=== PATIENT | female | born 1945 | race Caucasian/White ===

== ENCOUNTER → 2017-06-14 11:40 | Outpatient (CLI) | payer MEDICARE, OTHER, SELFPAY ==
[2017-06-14 12:50] LABS: AST(SGOT) 27 U/L (15-37); Alanine Aminotransfer ALT/SGPT 36 U/L (13-56); Albumin, Serum 3.6 g/dL (3.2-5.0); Alkaline Phosphatase 80 U/L (45-117); Bilirubin, Direct 0.15 mg/dL (0.00-0.30); Cholesterol 201 mg/dL (200); Globulin 3.8 g/dL (2.2-4.2); High Density Lipoprotein 73 mg/dL; Protein, Total 7.4 g/dL (6.4-8.2); Triglycerides 202 mg/dL; Very Low Density Lipoprotein 40 mg/dL (5-40)
[2017-06-14 13:04] LABS: International Normalized Ratio 2.6; Prothrombin Time (Protime)PT. 27.2 SECONDS (11.7-14.9)
== END ==
PROVIDERS: Family Provider Family Medicine; PCP Family Medicine; Visit Provider Internal Medicine Cardiovascular Disease
DX: E78.5 Hyperlipidemia, unspecified (principal); Z79.899 Other long term (current) drug therapy; Z95.2 Presence of prosthetic heart valve
CPT/HCPCS: 36415; 80061; 80076; 85610

== ENCOUNTER → 2017-07-06 12:23 | Outpatient (CLI) | payer MEDICARE, OTHER, SELFPAY ==
[2017-07-06 13:29] LABS: International Normalized Ratio 2.7; Prothrombin Time (Protime)PT. 27.9 SECONDS (11.7-14.9)
== END ==
PROVIDERS: Family Provider Family Medicine; PCP Family Medicine; Visit Provider Internal Medicine Cardiovascular Disease
DX: Z95.2 Presence of prosthetic heart valve (principal)
CPT/HCPCS: 36415; 85610

== ENCOUNTER → 2017-08-02 10:47 | Outpatient (CLI) | payer MEDICARE, OTHER, SELFPAY ==
[2017-08-02 12:32] LABS: International Normalized Ratio 3.2; Prothrombin Time (Protime)PT. 32.7 SECONDS (11.7-14.9)
== END ==
PROVIDERS: Family Provider Family Medicine; PCP Family Medicine; Visit Provider Internal Medicine Cardiovascular Disease
DX: Z98.890 Other specified postprocedural states (principal); Z95.2 Presence of prosthetic heart valve; Z79.01 Long term (current) use of anticoagulants
CPT/HCPCS: 36415; 85610

== ENCOUNTER → 2017-08-25 12:19 | Outpatient (CLI) | payer MEDICARE, OTHER, SELFPAY ==
[2017-08-25 14:02] LABS: International Normalized Ratio 2.9; Prothrombin Time (Protime)PT. 30.4 SECONDS (11.7-14.9)
== END ==
PROVIDERS: Family Provider Family Medicine; PCP Family Medicine; Visit Provider Internal Medicine Cardiovascular Disease
DX: Z98.890 Other specified postprocedural states (principal); Z95.2 Presence of prosthetic heart valve; Z79.01 Long term (current) use of anticoagulants
CPT/HCPCS: 36415; 85610

== ENCOUNTER → 2017-09-20 11:41 | Outpatient (CLI) | payer MEDICARE, OTHER, SELFPAY ==
[2017-09-20 12:58] LABS: International Normalized Ratio 3.1; Prothrombin Time (Protime)PT. 32.3 SECONDS (11.7-14.9)
== END ==
PROVIDERS: Family Provider Family Medicine; PCP Family Medicine; Visit Provider Internal Medicine Cardiovascular Disease
DX: Z95.2 Presence of prosthetic heart valve (principal); Z98.890 Other specified postprocedural states; Z79.01 Long term (current) use of anticoagulants
CPT/HCPCS: 36415; 85610

== ENCOUNTER → 2017-10-21 10:58 | Outpatient (CLI) | payer MEDICARE, OTHER, SELFPAY ==
--- NOTE | 2017-10-21 10:58 | DT_ITS ---
This patient was seen during an EMR downtime October 18, 2017 - October 25, 2017. This patient may have a combination of paper and electronic documentation or all paper documentation. All documentation is viewable within the e-chart portion of [employer] for each patient visit.
[2017-10-26 04:30] LABS: International Normalized Ratio 3.1
== END ==
PROVIDERS: Family Provider Family Medicine; PCP Family Medicine; Visit Provider Internal Medicine Cardiovascular Disease
DX: Z98.890 Other specified postprocedural states (principal); Z79.01 Long term (current) use of anticoagulants; Z95.2 Presence of prosthetic heart valve
CPT/HCPCS: 36415; 85610

== ENCOUNTER → 2017-11-10 11:03 | Outpatient (CLI) | payer MEDICARE, OTHER, SELFPAY ==
[2017-11-10 13:29] LABS: International Normalized Ratio 3.1; Prothrombin Time (Protime)PT. 32.5 SECONDS (11.7-14.9)
== END ==
PROVIDERS: Visit Provider Internal Medicine Cardiovascular Disease
DX: Z98.890 Other specified postprocedural states (principal); Z95.2 Presence of prosthetic heart valve; Z79.01 Long term (current) use of anticoagulants
CPT/HCPCS: 36415; 85610

== ENCOUNTER → 2017-12-07 10:03 | Outpatient (CLI) | payer MEDICARE, OTHER, SELFPAY ==
[2017-12-07 12:48] LABS: International Normalized Ratio 3.2; Prothrombin Time (Protime)PT. 32.7 SECONDS (11.7-14.9)
== END ==
PROVIDERS: Family Provider Family Medicine; PCP Family Medicine; Visit Provider Internal Medicine Cardiovascular Disease
DX: Z98.890 Other specified postprocedural states (principal); Z95.2 Presence of prosthetic heart valve; Z79.01 Long term (current) use of anticoagulants
CPT/HCPCS: 36415; 85610

== ENCOUNTER → 2017-12-30 10:28 | Outpatient (CLI) | payer MEDICARE, OTHER, SELFPAY ==
[2017-12-30 12:43] LABS: Prothrombin Time (Protime)PT. 31.7 SECONDS (11.7-14.9)
[2017-12-30 13:09] LABS: AST(SGOT) 36 U/L (15-37); Alanine Aminotransfer ALT/SGPT 34 U/L (13-56); Albumin, Serum 3.6 g/dL (3.2-5.0); Alkaline Phosphatase 74 U/L (45-117); Bilirubin, Direct 0.16 mg/dL (0.00-0.30); Cholesterol 186 mg/dL (200); Globulin 3.8 g/dL (2.2-4.2); High Density Lipoprotein 64 mg/dL; Protein, Total 7.4 g/dL (6.4-8.2); Triglycerides 184 mg/dL; Very Low Density Lipoprotein 37 mg/dL (5-40)
== END ==
PROVIDERS: Family Provider Family Medicine; PCP Family Medicine; Visit Provider Internal Medicine Cardiovascular Disease
DX: E78.5 Hyperlipidemia, unspecified (principal); Z98.890 Other specified postprocedural states; Z95.2 Presence of prosthetic heart valve; Z79.01 Long term (current) use of anticoagulants
CPT/HCPCS: 80061; 80076; 85610

== ENCOUNTER → 2018-01-26 11:31 | Outpatient (CLI) | payer MEDICARE, OTHER, SELFPAY ==
[2018-01-26 12:50] LABS: International Normalized Ratio 3.4; Prothrombin Time (Protime)PT. 34.6 SECONDS (11.7-14.9)
== END ==
PROVIDERS: Family Provider Family Medicine; PCP Family Medicine; Visit Provider Internal Medicine Cardiovascular Disease
DX: Z98.890 Other specified postprocedural states (principal); Z95.2 Presence of prosthetic heart valve; Z79.01 Long term (current) use of anticoagulants
CPT/HCPCS: 36415; 85610

== ENCOUNTER → 2018-02-18 09:51 | Outpatient (CLI) | payer MEDICARE, OTHER, SELFPAY ==
[2018-02-18 12:33] LABS: International Normalized Ratio 3.2; Prothrombin Time (Protime)PT. 32.7 SECONDS (11.7-14.9)
== END ==
PROVIDERS: Family Provider Family Medicine; PCP Family Medicine; Visit Provider Internal Medicine Cardiovascular Disease
DX: Z95.2 Presence of prosthetic heart valve (principal); Z98.890 Other specified postprocedural states; Z79.01 Long term (current) use of anticoagulants
CPT/HCPCS: 36415; 85610

== ENCOUNTER → 2018-03-16 11:42 | Outpatient (CLI) | payer MEDICARE, OTHER, SELFPAY ==
[2018-03-16 12:41] LABS: International Normalized Ratio 3.3; Prothrombin Time (Protime)PT. 33.7 SECONDS (11.7-14.9)
== END ==
PROVIDERS: Family Provider Family Medicine; PCP Family Medicine; Visit Provider Internal Medicine Cardiovascular Disease
DX: Z95.2 Presence of prosthetic heart valve (principal); Z98.890 Other specified postprocedural states; Z79.01 Long term (current) use of anticoagulants
CPT/HCPCS: 36415; 85610

== ENCOUNTER → 2018-04-13 11:28 | Outpatient (CLI) | payer MEDICARE, OTHER, SELFPAY ==
[2018-04-13 13:00] LABS: International Normalized Ratio 2.9; Prothrombin Time (Protime)PT. 30.6 SECONDS (11.7-14.9)
--- OUTSIDE RECORDS SUMMARY | 2018-06-08 20:26 | XMS RPT_ITS ---
:1945 Author Organization OHIP Support Name Relationship Address Phone BAILEY, AMINA Unavailable . + [place] [address] R Unavailable Unavailable Unavailable BAILEY, AMINA Unavailable . + [place] [address] R Unavailable Unavailable Unavailable BAILEY, AMIAN Unavailable . + [place] [address] R Unavailable Unavailable Unavailable BAILEY, AMINA Unavailable . + [place] [address] R Unavailable Unavailable Unavailable MAY, MARS Unavailable [address] + [place] [address] MAY, MARS Unavailable [address] + [place] [address] BAILEY, AMINA Unavailable . + [place] [address] R Unavailable Unavailable Unavailable BAILEY, AMINA Unavailable . + [place] [address] R Unavailable Unavailable Unavailable BAILEY, AMINA Unavailable . + [place] [address] R Unavailable Unavailable Unavailable BAILEY, AMINA Unavailable . + [place] [address] R Unavailable Unavailable Unavailable BAILEY, AMINA Unavailable . + [place] [address] R Unavailable Unavailable Unavailable BAILEY, AMINA Unavailable . + [place] [address] R Unavailable Unavailable Unavailable MAY, MARS Unavailable [address] + [place] [address] MAY, MARS Unavailable [address] + [place] [address] BAILEY, AMINA Unavailable . + [place] [address] R Unavailable Unavailable Unavailable BAILEY, AMINA Unavailable . + [place] [address] R Unavailable Unavailable Unavailable BAILEY, AMINA Unavailable . + [place] [address] R Unavailable Unavailable Unavailable R Unavailable Unavailable Unavailable BAILEY, AMINA Unavailable . + [facility] [place] Unavailable Unavailable Unavailable MAY, NACHO Unavailable [address] [place] [address] BAILEY, AMINA Unavailable . + [place], [place] R Unavailable Unavailable Unavailable MAY, NACHO Unavailable [address] [place] [address] BAILEY, AMINA Unavailable . + [place], [place] R Unavailable Unavailable Unavailable MAY, NACHO Unavailable [address] [place] [address] Care Team Providers Name Role Phone JOELLE OLGUIN MD Attending Unavailable JOELLE OLGUIN MD Primary Care Unavailable [facility] [place] NICOL Monroy Attending Unavailable JOELLE OLGUIN MD Primary Care Unavailable Luke, [place] Attending Unavailable Isidro, Joelle Primary Care Unavailable Luke, [place] Attending Unavailable Isidro, Joelle [facility] Un[facility] Joelle Olguin Referring Unavailable Isidro, Joelle Primary Care Unavailable DeFinis, Harumi Attending Unavailable Luke, Rodrigo Attending Unavailable Isidro, Joelle Primary Care Unavailable Luke, Rodrigo Attending Unavailable Isidro, Joelle Primary Care Unavailable Luke, Rodrigo Attending Unavailable Isidro, Joelle Primary Care Unavailable Luke, [place] Attending Unavailable Isidro, Joelle Primary Care Unavailable Luke, Rodrigo Attending Unavailable Isidro, Joelle Primary Care Unavailable Luke, Rodrigo Attending Unavailable Luke, [place] Attending Unavailable Isidro, Joelle Primary Care Unavailable Luke, Rodrigo Attending Unavailable Isidro, Joelle Primary Care Unavailable Luke, [place] Attending Unavailable Isidro, Joelle Primary Care Unavailable Luke, Rodrigo Attending Unavailable Isidro, Joelle Primary Care Unavailable Luke, Rodrigo Attending Unavailable Isidro, Joelle Primary Care Unavailable Luke, [place] Attending Unavailable Isidro, Joelle Primary Care Unavailable PROBLEMS PROBLEMS DATE TYPE CONDITION / CODE ATTENDING STATUS SOURCE 01/26/2018 Unknown 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, [place]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 [place] (current) use of Community anticoagulants / Hospital Z79.01(ICD-10) Repository 11/10/2017 Unknown Z95.2 - Presence of Luke, Rodrig[place] Active [facility] prosthetic heart Community valve / Hospital Z95.2(ICD-10) Repository 11/10/2017 Unknown Z98.890 - Other Luke, [place] Active [place] specified Community postprocedural Hospital states / Repository Z98.890(ICD-10) 06/14/2017 Unknown E78.5 - Luke, Rodrigo Active [facility] Hyperlipidemia, Community unspecified / Hospital E78.5(ICD-10) Repository 06/14/2017 Unknown Z79.899 - Other long Luke, [place] Active [place] term (current) drug Community therapy / Hospital Z79.899(ICD-10) Repository PROCEDURES PROCEDURES No Procedure Records FoundRESULTS RESULTS PROTHROMBIN TIME W/INR Collected: 04/13/2018 Status: F Source: [place] 11:30 AM [facility] REPOSITORY TYPE CODE TESTS RESULT OUT OF RANGE REFERENCE UNITS LAB L300.4150 11.7-14.9 SECONDS High PROTIME 30.6 LAB L300.4200 Normal INR 2.9 Performed By: #### L300.3900 #### [facility] [address] [place], [place], [id number] PROTHROMBIN TIME W/INR Collected: 03/16/2018 Status: F Source: [place] 11:45 AM [facility] REPOSITORY TYPE CODE TESTS RESULT OUT OF RANGE REFERENCE UNITS LAB L300.4150 11.7-14.9 SECONDS High PROTIME 33.7 LAB L300.4200 Normal INR 3.3 Performed By: #### L300.3900 #### [facility] [address] [place], [place], [address] PROTHROMBIN TIME W/INR Collected: 02/18/2018 Status: F Source: [place] 9:54 AM [facility] REPOSITORY TYPE CODE TESTS RESULT OUT OF RANGE REFERENCE UNITS LAB L300.4150 11.7-14.9 SECONDS High PROTIME 32.7 LAB L300.4200 Normal INR 3.2 Performed By: #### L300.3900 #### [facility] [address] [place], [address] PROTHROMBIN TIME W/INR Collected: 01/26/2018 Status: F Source: [place] 10:00 AM [facility] REPOSITORY TYPE CODE TESTS RESULT OUT OF RANGE REFERENCE UNITS LAB L300.4150 11.7-14.9 SECONDS High PROTIME 34.6 LAB L300.4200 Normal INR 3.4 Performed By: #### L300.3900 #### [facility] [address] [place], [address] MA MAMMOGRAM SCREENING Observed: 01/10/2018 Status: F Source: [facility]IL[facility] W/KAYLYNN 11:30 AM FOUNDATION REPOSITORY ORIGINAL FROM: [place] [address] PROCEDURE FOR: WILMA MAY [address] [place] [address] Home: PID#: [id number] Exam#: [id number] : 1945 Age: 72 TO: NICOL FERNANDEZ ALLIGATOR TRAPPER-C [address] [place] [address] #[id number] DIGITAL SCREENING MAMMOGRAM 3D/2D WITH CAD WITH MEDIOLATERAL OBLIQUE CRANIOCAUDAL: 01/10/2018 Comparison is made to exams dated: 08/20/2017 ultrasound, 11/30/2016 mammogram, and 11/29/2015 mammogram - [facility]. The tissue of both breasts is predominately fatty. Current study was also evaluated with a Computer Aided Detection (CAD) system. There are benign calcifications in both breasts. There also is a benign density in the right breast. No significant masses, calcifications, or other findings are seen in either breast. There has been no significant interval change. IMPRESSION: BENIGN There is no mammographic evidence of malignancy. A 1 year screening mammogram is recommended. JELLY SHELTON MD ab/penrad:01/10/2018 17:03:00 Time Recorder: LUANN HEDRICK (R)(M), [facility] letter sent: Normal BI-RADS 1&2 Mammogram BI-RADS: 2 Benign PROTHROMBIN TIME W/INR Collected: 12/30/2017 Status: F Source: [place] 10:31 AM [facility] REPOSITORY TYPE CODE TESTS RESULT OUT OF RANGE REFERENCE UNITS LAB L300.4150 11.7-14.9 SECONDS High PROTIME 31.7 LAB L300.4200 Normal INR 3.0 Performed By: #### L300.3900 #### [facility] [address] [facility]. [place], [place], [id number] LIVER PROFILE Collected: 12/30/2017 Status: F Source: [place] 10:31 AM [facility] REPOSITORY TYPE CODE TESTS RESULT OUT OF RANGE REFERENCE UNITS LAB L501.1500 6.4-8.2 g/dL Normal T PROT 7.4 LAB L501.1800 3.2-5.0 g/dL Normal ALB 3.6 LAB L501.1950 2.2-4.2 g/dL Normal GLOB 3.8 LAB L501.4100 15-37 U/L Normal AST 36 Result Comment: Slight Hemolysis, Result may be falsely increased. LAB L501.4305 45-117 U/L Normal ALK P 74 LAB L501.4405 13-56 U/L Normal ALT 34 LAB L501.4600 0.20-1.00 mg/dL Normal T BILI 1.00 LAB L501.4700 0.00-0.30 mg/dL Normal D BILI 0.16 Performed By: #### L500.3400, L500.4100 #### [facility] [address] [place], [place], [id number] LIPID PROFILE Collected: 12/30/2017 Status: F Source: [place] 10:31 AM [facility] REPOSITORY TYPE CODE TESTS RESULT OUT OF RANGE REFERENCE UNITS LAB L501.4900 200 mg/dL Normal CHOL 186 Result Comment: <200 mg/dL Desirable 200-240 mg/dL Borderline >240 mg/dL High Risk LAB L501.5000 mg/dL Normal TRIG 184 Result Comment: The drugs N-Acetylcysteine and Metamizole may falsely depress this assay. Serum Triglycerides Reference Interval Normal <150 mg/dL Borderline high 150 - 199 mg/dL High 200 - 499 mg/dL Very High > or = 500 mg/dL LAB L501.6400 mg/dL Normal HDL 64 Result Comment: The drugs N-Acetylcysteine and Metamizole may falsely depress this assay. Reference Range HDL <40 mg/dL Low HDL Cholesterol HDL >or= 60 mg/dL High HDL Cholesterol LAB L501.6500 0-130 mg/dL Normal LDL 85 LAB L501.6600 5-40 mg/dL Normal VLDL 37 Performed By: #### L500.3400, L500.4100 #### [facility] [address] [facility] [place], [address] PROTHROMBIN TIME W/INR Collected: 12/07/2017 Status: F Source: [place] 10:12 AM [facility] REPOSITORY TYPE CODE TESTS RESULT OUT OF RANGE REFERENCE UNITS LAB L300.4150 11.7-14.9 SECONDS High PROTIME 32.7 LAB L300.4200 Normal INR 3.2 Performed By: #### L300.3900 #### [facility] [address] [facility] [place], [address] PROTHROMBIN TIME W/INR Collected: 11/10/2017 Status: F Source: [place] 11:04 AM [facility] REPOSITORY TYPE CODE TESTS RESULT OUT OF RANGE REFERENCE UNITS LAB L300.4150 11.7-14.9 SECONDS High PROTIME 32.5 LAB L300.4200 Normal INR 3.1 Performed By: #### L300.3900 #### [facility] [address] [place], [address] DOWNTIME REPORT Observed: 11/04/2017 Status: F Source: [place] 1:12 PM [facility] REPOSITORY [facility] Medical Records Department [address] [place] [address] Downtime Report MR#: [id number] Acct: [id number] Name: WILMA MAY Rep #: [id number] : 1945 71 From: Singh Dawson PCP: Joelle Olguin MD Status: REG CLI This patient was seen during an EMR downtime October 18, 2017 - October 25, 2017. This patient may have a combination of paper and electronic documentation or all paper documentation. All documentation is viewable within the e-chart portion of [facility] for each patient visit. PROTHROMBIN TIME W/INR Collected: 10/21/2017 Status: F Source: [place] 9:40 AM [facility] REPOSITORY Order Comment: RESULT(S) PREVIOUSLY REPORTED ON MANUAL REQUISITION DURING DOWNTIME. TYPE CODE TESTS RESULT OUT OF RANGE REFERENCE UNITS LAB L300.4150 11.7-14.9 SECONDS High PROTIME 32.0 LAB L300.4200 Normal INR 3.1 Performed By: #### L300.3900 #### [facility] [address] [place], [address] PROTHROMBIN TIME W/INR Collected: 09/20/2017 Status: F Source: [place] 11:49 AM [facility] REPOSITORY TYPE CODE TESTS RESULT OUT OF RANGE REFERENCE UNITS LAB L300.4150 11.7-14.9 SECONDS High PROTIME 32.3 LAB L300.4200 Normal INR 3.1 Performed By: #### L300.3900 #### [facility] [address] [place], [address] PROTHROMBIN TIME W/INR Collected: 08/25/2017 Status: F Source: [place] 12:20 PM [facility] REPOSITORY TYPE CODE TESTS RESULT OUT OF RANGE REFERENCE UNITS LAB L300.4150 11.7-14.9 SECONDS High PROTIME 30.4 LAB L300.4200 Normal INR 2.9 Performed By: #### L300.3900 #### [facility] [address] [facility] [place], [address] US BREAST RIGHT Observed: 08/20/2017 Status: F Source: [facility] 1:00 PM FOUNDATION REPOSITORY ORIGINAL FROM: [address] [address] PROCEDURE FOR: WILMA MAY [address] [place] [address] Home: PID#: [id number] Exam#: [id number] : 1945 Age: 71 TO: JOELLE OLGUIN MD [address] [place], [place] [address] #[id number] ULTRASOUND OF RIGHT BREAST: 08/20/2017 CLINICAL: 6 MONTHS FOLLOW-UP. Comparison is made to exams dated: 02/17/2017 ultrasound, 12/01/2016 ultrasound, and 11/30/2016 mammogram - [facility]. Color flow and real-time ultrasound of the right breast were performed. There is a stable benign appearing 8 mm oval lesion in the right breast at 7 o'clock middle depth. This oval lesion is anechoic centrally and has an echogenic margin. Color flow imaging demonstrates jovan t there is no vascularity present. There has been no significant interval change. IMPRESSION: BENIGN There is no sonographic evidence of malignancy. The stable 8 mm oval lesion in the right breast most likely is fat necrosis and appears benign. Return to annual mammogram screening schedule is recommended, due November 2017. JACINTO LOBO M.D. vfg/:08/20/2017 13:49:46 Time Recorder: CARMELITA LAND RT(R), [facility] letter sent: Normal BI-RADS 1&2 Ultrasound BI-RADS: 2 Benign PROTHROMBIN TIME W/INR Collected: 08/02/2017 Status: F Source: [place] 10:50 AM [facility] REPOSITORY Order Comment: Comments: STANDING ORDER Comments: STANDING ORDER TYPE CODE TESTS RESULT OUT OF RANGE REFERENCE UNITS LAB L300.4150 11.7-14.9 SECONDS High PROTIME 32.7 LAB L300.4200 Normal INR 3.2 Performed By: #### L300.3900 #### [facility] [address] [place], [place], [address] CARDIOLOGY VISIT Observed: 07/07/2017 Status: F Source: [place] REPORT 11:35 AM [facility] REPOSITORY [facility] [address] [place] [address] OFFICE VISIT Date of Service: 07/06/17 MR#: [id number] Acct: [id number] Name: WILMA MAY Rep #: [id number] : 1945 Provider: MARY ANNE Ramos Age/Sex: 71/F [facility] Status: Signed HPI HPI Details: WILMA MAY, is a 71 F who presents to the office today for a cardiovascular outpatient follow-up. Patient is a history of bicuspid aortic valve status post aortic valve replacement [address] Ahmet's valve and hyperlipidemia. Pt. denies chest, arm, jaw, or neck discomfort. Her exercise tolerance is stable. Pt. denies symptoms of CHF, palpitations, lightheadedness, dizziness, near syncope, or syncopal episodes. Pt. denies edema or claudication issues. Pt. denies orthopnea, PND, fever, chills, blood in urine, blood in stool, myalgia, or unexplainable fatigue. She is hoping to return to exercise classes. Intake Vital Signs07/06/17 Height 5 ft 4 in 07/06/17 Weight: 212 lb 07/06/17 Body Mass Index (BMI) 36.3 07/06/17 Blood Pressure 90/50 Intake Visit Reasons: 1 Y FU Allergies Sulfa (Sulfonamide Antibiotics) Allergy (Verified 07/06/17 09:39) Itching ezetimibe [From Zetia] Adverse Reaction (Severe, Verified 07/06/17 09:39) Muscle aches iodine Adverse Reaction (Severe, Uncoded 07/06/17 09:39) Vomiting lipitor Adverse Reaction (Severe, Uncoded 07/06/17 09:39) Muscle aches zocor Adverse Reaction (Severe, Uncoded 07/06/17 09:39) Muscle aches Medications Aspirin E.C. [Ecotrin] 81 mg PO DAILY@0800 08/24/14 [History Confirmed 06/30/17] amoxicillin 500 mg tablet See Label Instructions PO .COMPLEX 06/30/17 [History Confirmed 06/30/17] imipramine 25 mg tablet See Label Instructions PO QHS 06/30/17 [History Confirmed 06/30/17] metoprolol tartrate 25 mg tablet 25 mg PO BID #180 tab 07/06/17 [Rx Confirmed 07/06/17] rosuvastatin 40 mg tablet 40 mg PO .COMPLEX #90 tab 07/06/17 [Rx Confirmed 07/06/17] warfarin 1 mg tablet 1 mg PO .COMPLEX #90 tab 07/06/17 [Rx Confirmed 07/06/17] warfarin 4 mg tablet 4 mg PO .COMPLEX #90 tab 07/06/17 [Rx Confirmed 07/06/17] PFSH Medical History halfway current use of anticoagulant (Acute) Palpitations (Acute) TIA (transient ischemic attack) (Acute) Aortic stenosis (Chronic) Cardiac dysrhythmia (Chronic) Hypercholesterolemia (Chronic) Hyperlipidemia (Chronic) Surgical History History of mechanical aortic valve replacement (Resolved) Family History Mother CVA (cerebral vascular accident) Social History Smoking Status: Never smoker seatbelt use: always ROS Const Const: Negative for fatigue, weakness, body ache, fever(s), headache(s), chills, frequent falls, night sweats, daytime sleepiness, difficulty sleeping, excessive sweating, weight gain, weight loss, increased appetite, poor appetite, anorexia or other ENT ENT: Negative for headache(s) Cardio Chest Pain: No Palpitations: Positive for No; negative for Yes Edema: None Muscle aches with walking: None Resp Respiratory: Positive for SOB with activity (ocassionally when going upstairs or walking, this is brief and minimal); negative for SOB at rest, SOB orthopnea\SOB lying down, Coughing up blood/hemoptysis, chest congestion, pain on inspiration, snoring, stridor, wheezing, crackles, paroxysmal nocturnal dyspnea or other Neuro Neuro: Negative for weakness, Negative for headache(s), Negative for frequent falls Endo Endo: Negative for fatigue or excessive sweating Cardiology Exam Const Appearance: cooperative, healthy appearing, comfortable and no acute distress Orientation: alert, awake and oriented x3 Head Head: normal to inspection Mouth: oral mucosae normal Neck Neck: no JVD and normal visual inspection Carotids: normal carotid upstroke Chest Chest inspection: normal inspection of the chest and normal respiratory effort Auscultation: Bilateral: Clear to Auscultation Cardio Rate: regular rate Rhythm: regular rhythm Heart sounds: S2 normal and murmur (crisp prosthetic valve, LLSB systolic); negative rub or gallop Murmur: Grade 1/6 GI GI: normal to inspection Neuro General: alert, awake, oriented x3 and CN's II-XI intact bilaterally Skin Skin: no rashes or lesions noted Extremities Pulses: Normal: Right Posterior Tibial Pulse, Left Posterior Tibial Pulse, Right Radial Pulse, Left Radial Pulse Lower Extremity Edema: None: Bilateral Psych Psychological: normal affect Assessment AND Plan 1. History of mechanical aortic valve replacement Z95.2 05/26/04 (mechanical) Plan - MICHELLE Osborn Echocardiogram from July 2015 showed an ejection fraction of 50% and an aortic valve area of 1.2-1.3 cm . Patient denies any acute symptoms. We will continue to monitor this through history, exam, and repeat echocardiogram as needed. She will continue with antibiotic prophylaxis prior to dental procedures. 2. Mixed hyperlipidemia E78.2 Plan - MICHELLE Osborn Patient's most recent lipid panel from May 2017 show cholesterol: 201, HDL: 73, LDL: 88, and triglycerides: 202. This is improvement since her prior lipid panel. She will continue current cholesterol-lowering medication and repeat both lipid and liver panel in approximately 6 months. 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 She will maintain an INR 2.5-3.5. We will adjust the Coumadin as needed. Plan Detail Other Medications New: Discontinued: Additional Comments - MICHELLE Osborn Discussed the above patient with Dr. Sosa in Dr. Butler's absence, he agrees with the plan of care. Thank you for allowing us to participate in the patients plan of care, if you have any questions please do not hesitate to call. This note was generated using a voice recognition system and there may be incorrect words, spelling or punctuation that were not noted when reviewing the office note prior to saving. Follow Up 1 Year ([facility] [employer]) Coding Level of Care Code Off vis,est,level 3 Diagnoses History of mechanical aortic valve replacement Z95.2 Mixed hyperlipidemia E78.2 Hyperlipidemia type: mixed hyperlipidemia halfway current use of anticoagulant Z79.01 Coding Level of Care Code Off vis,est,level 3 Diagnoses History of mechanical aortic valve replacement Z95.2 Mixed hyperlipidemia E78.2 Hyperlipidemia type: mixed hyperlipidemia halfway current use of anticoagulant Z79.01 07/06/17 1325 <Electronically signed by Devonte Christian Richard ALLIGATOR TRAPPER-C> Date Devonte Christian Richard ALLIGATOR TRAPPER-C 07/07/17 1135<Electronically signed by Shamar Sosa MD> Cosigner Signature: Date (if applicable) Shamar Sosa MD CC: Joelle Olguin MD PROTHROMBIN TIME W/INR Collected: 07/06/2017 Status: F Source: [place] 12:25 PM [facility] REPOSITORY TYPE CODE TESTS RESULT OUT OF RANGE REFERENCE UNITS LAB L300.4150 11.7-14.9 SECONDS High PROTIME 27.9 LAB L300.4200 Normal INR 2.7 Performed By: #### L300.3900 #### [facility] [address] [place], [address] LIVER PROFILE Collected: 06/14/2017 Status: F Source: [place] 11:46 AM [facility] REPOSITORY TYPE CODE TESTS RESULT OUT OF RANGE REFERENCE UNITS LAB L501.1500 6.4-8.2 g/dL Normal T PROT 7.4 LAB L501.1800 3.2-5.0 g/dL Normal ALB 3.6 LAB L501.1950 2.2-4.2 g/dL Normal GLOB 3.8 LAB L501.4100 15-37 U/L Normal AST 27 Result Comment: Slight Hemolysis, Result may be falsely increased. LAB L501.4305 45-117 U/L Normal ALK P 80 LAB L501.4405 13-56 U/L Normal ALT 36 Result Comment: Please note revised ALT reference range effective 2017. LAB L501.4600 0.20-1.00 mg/dL Normal T BILI 0.80 LAB L501.4700 0.00-0.30 mg/dL Normal D BILI 0.15 Performed By: #### L500.3400, L500.4100 #### [facility] [address] [place], [address] LIPID PROFILE Collected: 06/14/2017 Status: F Source: [place] 11:46 AM [facility] REPOSITORY TYPE CODE TESTS RESULT OUT OF RANGE REFERENCE UNITS LAB L501.4900 200 mg/dL High CHOL 201 Result Comment: <200 mg/dL Desirable 200-240 mg/dL Borderline >240 mg/dL High Risk LAB L501.5000 mg/dL High TRIG 202 Result Comment: The drugs N-Acetylcysteine and Metamizole may falsely depress this assay. Serum Triglycerides Reference Interval Normal <150 mg/dL Borderline high 150 - 199 mg/dL High 200 - 499 mg/dL Very High > or = 500 mg/dL LAB L501.6400 mg/dL Normal HDL 73 Result Comment: The drugs N-Acetylcysteine and Metamizole may falsely depress this assay. Reference Range HDL <40 mg/dL Low HDL Cholesterol HDL >or= 60 mg/dL High HDL Cholesterol LAB L501.6500 0-130 mg/dL Normal LDL 88 LAB L501.6600 5-40 mg/dL Normal VLDL 40 Performed By: #### L500.3400, L500.4100 #### [facility] [address] [facility] [place], [address] PROTHROMBIN TIME W/INR Collected: 06/14/2017 Status: F Source: [place] 11:46 AM [facility] REPOSITORY TYPE CODE TESTS RESULT OUT OF RANGE REFERENCE UNITS LAB L300.4150 11.7-14.9 SECONDS High PROTIME 27.2 LAB L300.4200 Normal INR 2.6 Performed By: #### L300.3900 #### [facility] [address] [place], [address] PROTHROMBIN TIME W/INR Collected: 05/20/2017 Status: F Source: [place] 9:56 AM [facility] REPOSITORY TYPE CODE TESTS RESULT OUT OF RANGE REFERENCE UNITS LAB L300.4150 11.7-14.9 SECONDS High PROTIME 28.0 LAB L300.4200 Normal INR 2.7 Performed By: #### L300.3900 #### [facility] [address] [place], [address] ALLERGIES ALLERGIES DATE TYPE / CODE NAME / CODE REACTION SEVERITY SOURCE 07/06/2017 Drug Sulfa Itching Unknown [facility] Allergy/720624608(S (Sulfonamide Community NOMED CT) Antibiotics)/ Hospital [id number](RX Repository NORM) 07/06/2017 Drug ezetimibe/F00 MUSCLE ACHES SV [facility] All[facility]/184903394(S 4146374(RXNOR [facility] NOMED CT) M) Hospital Repository 07/06/2017 Miscellaneous iodine Vomiting SV [facility] Allergy/203347868(S [facility] NOM[facility]) Hospital Repository 07/06/2017 Miscellaneous lipitor MUSCLE ACHES SV [facility] Allergy/633690229(S [facility] NOM[facility]) Hospital Repository 07/06/2017 Miscellaneous zocor MUSCLE ACHES SV [facility] Allergy/940916329(S [facility] NOM[facility] CT) Hospital Repository ENCOUNTERS ENCOUNTERS ADMIT/DISCHARGE ACCOUNT NUMBER ADMITTING ENCOUNTER LOCATION SOURCE CLASS 04/13/2018 [id number] [facility] ding:[id number] Repository 03/16/2018 [id number] [facility] ding:[facility] Repository 02/18/2018 [id number] [facility] ding:[facility] Repository 01/26/2018 [id number] [facility] ding:[facility] Repository 01/10/2018/01/11/[id number] ding:[facility] Repository 12/30/2017 [id number] [facility] ding:[facility] Repository 12/07/2017 [id number] [facility] ding:[facility] Repository 11/10/2017 [id number] [facility] ding:[facility] Repository 10/21/2017 [id number] [facility] ding:POLAB3 Repository 09/20/2017 [id number] [facility] ding:POLAB3 Repository 08/25/2017 [id number] Ambulatory [facility] ding:POLAB3 Repository 08/20/2017/08/21/19 [id number] Ambulatory [address] ding:RAD Foundation Repository 08/02/2017 [id number] Ambulatory [facility] ding:POLAB3 Repository 07/06/2017 [id number] Ambulatory [facility] ding:POLAB3 Repository 07/06/2017/07/06/19 [id number] Ambulatory BMSBuilding: Jewel [address] [facility] Repository 07/03/2017 [id number] Ambulatory BMSBuilding: [place] BMS.[facility] Repository 06/14/2017 [id number] Ambulatory [facility] ding:POLAB3 Repository 05/20/2017 [id number] Ambulatory [facility] ding:POLAB3 Repository PAYERS PAYERS ENCOUNTER GUARANTOR PAYER SUBSCRIBER SOURCE 04/13/2018 WILMA Thomas Primary WILMA K [place] [address] Insurance:MEDICARE SNYDERDOB: [facility] [address] [address] [address] A [id number], Number: Repository [place] [address]Aad: [id number] Date:2018-04-13 () 04/13/2018 Secondary WILMA K [place] Insurance:MUTUAL OF SNYDERDOB: [facility] Number: [id number] Hospital [id number] Repository Date:1422-13-86[place]QJTLTBARRETT, [place] [address]KJ: 04/13/2018 Tertiary NOT GIVENUNK [place] Insurance:SELF PAY [facility] Number: Effective Repository Date:2018-04-13 03/16/2018 WILMA Thomas Primary WILMA K [place] [address] Insurance:MEDICARE SNYDERDOB: Community [id number] [address] [facility] [id number], Number: Repository [place] [address]Vha: [id number] Date:2018-03-16 () 03/16/2018 Secondary WILMA K [place] Insurance:MUTUAL OF SNYDERDOB: [facility] Number: [id number] Hospital [id number] Repository Date:8262-83-10NXWBOX OF [place] [address]QB: 03/16/2018 Tertiary NOT GIVENUNK [place] Insurance:SELF PAY [facility] Number: Effective Repository Date:2018-03-16 02/18/2018 WILMA K Primary WILMA K [place] [address] Insurance:MEDICARE SNYDERDOB: Community [id number] [address] [address] [facility] [id number] [facility] Hospital, Number: Repository [place] [address]Oob: [id number] Date:2018-02-18 () 02/18/2018 Secondary WILMA K [place] Insurance:MUTUAL OF SNYDERDOB: [facility] Number: [id number] Hospital [id number] Repository Date:2642-22-38PEPFBA OF [place], [place] [address]XW: 02/18/2018 Tertiary NOT GIVENUNK [place] Insurance:SELF PAY [facility] Number: Effective Repository Date:2018-02-18 01/26/2018 WILMA K Primary WILMA K [place] [address] Insurance:MEDICARE SNYDERDOB: Community [address] [address] [facility] [id number] Hospital, Number: Repository [place] [address]Wrh: [id number] Date:2018-01-26 () 01/26/2018 Secondary WILMA K [place] Insurance:MUTUAL OF SNYDERDOB: [facility] Number: [id number] Hospital [id number] Repository Date:3284-72-03NTXVIW [place] [address]IC: 01/26/2018 Tertiary NOT GIVENUNK [place] Insurance:SELF PAY [facility] Number: Effective Repository Date:2018-01-26 01/10/2018 WILMA Thomas Primary [facility] SNYDERDOB: Insurance:MEDICARE SNYDERDOB: Foundation [id number] BOX PART BPolicy Number: [id number] Repository [address] [place] [address] [id number] [place] [address] Date:2018-01-05BRADY 4000-37-44Tjbx , [place] [address]Tcf: Name:[facility] Administrators LLCPO () [address] [place] [address]ZM: 01/10/2018 Secondary WILMA [facility] Insurance:MUTUAL OF SNYDERDOB: [facility] Number: [id number] Repository [id number] BOX Date:2018-01-05BRADY 5623-35-01Snoz , [place] [address]Myf: Name:CMUTUAL OF [place] () [address]LA: 12/30/2017 WILMA K Primary WILMA Martha [place] [address] Insurance:MEDICARE SNYDERDOB: [facility] [address] [address] A [facility] [id number] [facility] Hospital, Number: Repository [place] [address]Mkk: [id number] Date:2017-12-30 () 12/30/2017 Secondary WILMA Martha [place] Insurance:MUTUAL OF SNYDERDOB: [facility] Number: [id number] Hospital [id number] Repository Date:9180-35-65VLZJFH [facility] [place] [address]PA: 12/30/2017 Tertiary NOT GIVENUNK [place] Insurance:SELF PAY [facility] Number: Effective Repository Date:2017-12-30 12/07/2017 WILMA Thomas Primary WILMA K [place] [address] Insurance:MEDICARE SNYDERDOB: Community [address] [address] [address] [facility] [id number], Number: Repository [place] [address]Snb: [id number] Date:2017-12-07 () 12/07/2017 Secondary WILMA K [place] Insurance:MUTUAL OF SNYDERDOB: [facility] Number: [id number] Hospital [id number] Repository Date:7247-35-13RFOJCA OF [facility] [address]NY: 12/07/2017 Tertiary NOT GIVENUNK [place] Insurance:SELF PAY [facility] Number: Effective Repository Date:2017-12-07 11/10/2017 WILMA K Primary WILMA K [place] [address] Insurance:MEDICARE SNYDERDOB: [facility] [address] [address] [address] A [facility] [id number] Community Hospital, Number: Repository [place] [address]Vps: [id number] Date:2017-11-10 () 11/10/2017 Secondary WILMA K [place] Insurance:MUTUAL OF SNYDERDOB: [facility] Number: [id number] Hospital [id number] Repository Date:2499-22-63BCFDDY OF [facility] [address]AW: 11/10/2017 Tertiary NOT GIVENUNK [place] Insurance:SELF PAY [facility] Number: Effective Repository Date:2017-11-10 10/21/2017 WILMA K Primary WILMA K [place] [address] Insurance:MEDICARE SNYDERDOB: [facility] [address] [address] [address] A [facility] [id number] Community Hospital, Number: Repository [place] [address]Srb: [id number] Date:2017-10-21 () 10/21/2017 Secondary WILMA K [place] Insurance:MUTUAL OF SNYDERDOB: [facility] Number: [id number] Hospital [id number] Repository Date:3202-59-75MHFAAI [place], [place] [address]HG: 10/21/2017 Tertiary NOT GIVENUNK [place] Insurance:SELF PAY [facility] Number: Effective Repository Date:2017-10-21 09/20/2017 WILMA Thomas Primary WILMA Martha [place] [address] Insurance:MEDICARE SNYDERDOB: Community [address] [address] [address] A [facility] [id number] Community Hospital, Number: Repository [place] [address]Zhh: [id number] Date:2017-09-20 () 09/20/2017 Secondary WILMA K [place] Insurance:MUTUAL OF SNYDERDOB: [facility] Number: [id number] Hospital [id number] Repository Date:6477-18-69VQGFBV OF [place], [place] [address]ZD: 09/20/2017 Tertiary NOT GIVENUNK [place] Insurance:SELF PAY [facility] Number: Effective Repository Date:2017-09-20 08/25/2017 WILMA Thomas Primary WILMA K [place] [address] Insurance:MEDICARE SNYDERDOB: [facility] [address] [address] A [facility] [id number] Community Hospital, Number: Repository [place] [address]Gyj: [id number] Date:2017-08-25 () 08/25/2017 Secondary WILMA K [place] Insurance:MUTUAL OF SNYDERDOB: [facility] Number: [id number] Hospital [id number] Repository Date:8742-44-16QVKGUC OF [place], [place] [address]AU: 08/25/2017 Tertiary NOT GIVENUNK [place] Insurance:SELF PAY [facility] Number: Effective Repository Date:2017-08-25 08/20/2017 WILMA Thomas Primary WILMA Thomas [facility] SNYDERDOB: Insurance:MEDICARE SNYDERDOB: [facility] [id number] BOX PART BPolicy Number: [id number] Repository [address] [place] [id number] [address] , [place] [address]Bfh: Date:2017-08-04 179BRADY 3288-75-03Mzdb , [place] [address]Mom: (WP) Name:[facility] Administrators LLCPO (WP) [address] [place] [address]QX: 08/20/2017 Secondary WILMA K [facility] Insurance:MUTUAL OF SNYDERDOB: [facility] Number: [id number] Repository [id number] BOX Date:2017-08-04BRADY 2314-11-36Kccp , [place] [address]Smn: Name:CMUTUAL [facility] [place], [place] ([place]) [address]NX: 08/02/2017 WILMA Thomas Primary WILMA K [place] [address] Insurance:MEDICARE SNYDERDOB: Community [address] [address] A [facility] [id number] Community Hospital, Number: Repository [place] [address]Coi: [id number] Date:2017-08-02 (HP) 08/02/2017 Secondary WILMA K [place] Insurance:MUTUAL OF SNYDERDOB: [facility] Number: [id number] Hospital [id number] Repository Date:9099-76-06MKDLAHBARRETT, [place] [address]GI: 08/02/2017 Tertiary NOT GIVENUNK [place] Insurance:SELF PAY [facility] Number: Effective Repository Date:2017-08-02 07/06/2017 WILMA Thomas Primary WILMA K [place] [address] Insurance:MEDICARE SNYDERDOB: Community [address] [address] [facility] [id number] Community Hospital, Number: Repository [place] [address]Quv: [id number] Date:2017-07-06 () 07/06/2017 Secondary WILMA K [place] Insurance:MUTUAL OF SNYDERDOB: [facility] Number: [id number] Hospital [id number] Repository Date:5156-86-85WQESHL [place] [address]OD: 07/06/2017 Tertiary NOT GIVENUNK [place] Insurance:SELF PAY [facility] Number: Effective Repository Date:2017-07-06 07/06/2017 WILMA K Primary WILMA K [place] [address] Insurance:MEDICARE SNYDERDOB: Community [address] [address] [facility] [id number] Community Hospital, Number: Repository [place] [address]Ahw: [id number] Date:2017-04-24 () 07/06/2017 Secondary WILMA K [place] Insurance:MUTUAL OF SNYDERDOB: [facility] Number: [id number] Hospital [id number] Repository Date:2369-13-88ZVIKAT OF [place], [place] [address]MB: 07/06/2017 Tertiary NOT GIVENUNK [place] Insurance:SELF PAY [facility] Number: Effective Repository Date:2017-04-24 07/03/2017 Wilma Martha Primary Wilma K [place] [address] Insurance:MEDICARE SnyderDOB: Community [address] [place] PART A [facility] [id number] [facility], Number: Repository [place] [address]Gzg: [id number] Date:2017-07-03 () 07/03/2017 Secondary WILMA K [place] Insurance:MUTUAL OF SNYDERDOB: [facility] Number: [id number] Hospital [id number] Repository Date:5424-41-38LEBKFG OF [place], [place] [address]VU: 07/03/2017 Tertiary NOT GIVENUNK [place] Insurance:SELF PAY [facility] Number: Effective Repository Date:2017-07-03 06/14/2017 Wilma Thomas Primary Wilma K [place] [address] Insurance:MEDICARE SnyderDOB: Community [address] [place] PART A [facility] [id number] [facility], Number: Repository [place] [address]Ayb: [id number] Date:2017-06-14 () 06/14/2017 Secondary WILMA K [place] Insurance:MUTUAL OF SNYDERDOB: [facility] Number: [id number] Hospital [id number] Repository Date:3808-09-40LHVIOQ OF [place], [place] [address]VO: 06/14/2017 Tertiary NOT GIVENUNK [place] Insurance:SELF PAY [facility] Number: Effective Repository Date:2017-06-14 05/20/2017 Wilma Thomas Primary Wilma K [place] [address] Insurance:MEDICARE SnyderDOB: Community [address] [place] PART A [facility] [id number] [facility], Number: Repository [place] [address]Qvy: [id number] Date:2017-05-20 () 05/20/2017 Secondary WILMA K [place] Insurance:MUTUAL OF SNYDERDOB: [facility] Number: [id number] Hospital [id number] Repository Date:5527-59-97YIHILW [place], [place] [address]HY: 05/20/2017 Tertiary NOT GIVENUNK [place] Insurance:SELF PAY [facility] Number: Effective Repository Date:2017-05-20
== END ==
PROVIDERS: Family Provider Family Medicine; PCP Family Medicine; Visit Provider Internal Medicine Cardiovascular Disease
DX: Z98.890 Other specified postprocedural states (principal); Z95.2 Presence of prosthetic heart valve; Z79.01 Long term (current) use of anticoagulants
CPT/HCPCS: 36415; 85610

== ENCOUNTER → 2018-05-05 09:44 | Outpatient (CLI) | payer MEDICARE, OTHER, SELFPAY ==
[2018-05-05 13:02] LABS: International Normalized Ratio 3.1; Prothrombin Time (Protime)PT. 32.1 SECONDS (11.7-14.9)
== END ==
PROVIDERS: Family Provider Family Medicine; PCP Family Medicine; Visit Provider Internal Medicine Cardiovascular Disease
DX: Z98.890 Other specified postprocedural states (principal); Z79.01 Long term (current) use of anticoagulants; Z95.2 Presence of prosthetic heart valve
CPT/HCPCS: 36415; 85610

== ENCOUNTER → 2018-06-02 12:15 | Outpatient (CLI) | payer MEDICARE, OTHER, SELFPAY ==
[2018-06-02 14:07] LABS: International Normalized Ratio 2.8; Prothrombin Time (Protime)PT. 29.8 SECONDS (11.7-14.9)
--- OUTSIDE RECORDS SUMMARY | 2018-08-07 04:19 | XMS RPT_ITS ---
:1945 Author Organization OHIP Support Name Relationship Address Phone BAILEY, AMINA Unavailable . + [place] [address] R Unavailable Unavailable Unavailable BAILEY, AMINA Unavailable . + [place] [address] R Unavailable Unavailable Unavailable BAILEY, AMINA Unavailable . + [place] [address] R Unavailable Unavailable Unavailable BAILEY, AMINA Unavailable . + [place] [address] R Unavailable Unavailable Unavailable BAILEY, AMINA Unavailable . + [place] [address] R Unavailable Unavailable Unavailable BAILEY, AMINA Unavailable . + [place] [address] R Unavailable Unavailable Unavailable MAY, MARS Unavailable [address] + [place] [address] MAY MARS Unavailable [address] + [place] [address] BAILEY, AMINA Unavailable . + [place] [address] R Unavailable Unavailable Unavailable BAILEY, AMINA Unavailable . + [place] [address] R Unavailable Unavailable Unavailable BAILEY, AMINA Unavailable . + [place] [address] R Unavailable Unavailable Unavailable BAILEY, AMINA Unavailable . + [place] [address] R Unavailable Unavailable Unavailable BAILEY, AMINA Unavailable . + [place] [address] R Unavailable Unavailable Unavailable BAILEY, AMINA Unavailable . + [place] [address] R Unavailable Unavailable Unavailable MAY MARS Unavailable [address] + [place] [address] MAY, MARS Unavailable [address] + [place] [address] BAILEY, AMINA Unavailable . + [place] [address] R Unavailable Unavailable Unavailable BAILEY, AMINA Unavailable . + [place] [address] R Unavailable Unavailable Unavailable BAILEY, AMINA Unavailable . + [place] [address] R Unavailable Unavailable Unavailable R Unavailable Unavailable Unavailable BAILEY, AMINA Unavailable . + [place] R Unavailable Unavailable Unavailable MAY NACHO Unavailable [address] [place] [address] BAILEY, AMINA Unavailable . + [place] R Unavailable Unavailable Unavailable MAY NACHO Unavailable [address] [place] [address] Care Team Providers Name Role Phone JOELLE OLGUIN MD Attending Unavailable JOELLE OLGUIN MD Primary Care Unavailable [facility] [place]. NICOL Monroy Attending Unavailable JOELLE OLGUIN MD Primary Care Unavailable Luke, Rodrigo Attending Unavailable Isidro, Joelle Primary Care Unavailable Luke, Rodrigo Attending Unavailable Isidro, Joelle Primary Care Unavailable Luke, Rodrigo Attending Unavailable Isidro, Joelle [facility]available [facility] Unavailable Isidro, Joelle Referring Unavailable Isidro, Joelle Primary Care Unavailable DeFinis, Ruumi Attending Unavailable Luke, Rodrigo Attending Unavailable Isidro, Joelle Primary Care Unavailable Luke, [place] Attending Unavailable Isidro, Joelle Primary Care Unavailable Luke, Rodrigo Attending Unavailable Isidro, Joelle Primary Care Unavailable Luke, [place] Attending Unavailable Isidro, Joelle Primary Care Unavailable Luke, [place] Attending Unavailable Siidro, Joelle Primary Care Unavailable Luke, Rodrigo Attending Unavailable Luke, Rodrigo Attending Unavailable Isidro, Joelle Primary Care Unavailable Luke, [place] Attending Unavailable Isidro, Joelle Primary Care Unavailable Luke, [place] Attending Unavailable Isidro, Joelle Primary Care Unavailable Luke, [place] Attending Unavailable Isidro, Joelle Primary Care Unavailable Luke, Rodrigo Attending Unavailable Isidro, Joelle Primary Care Unavailable Luke, [place] Attending Unavailable Joelle Olguin Primary Care Unavailable PROBLEMS PROBLEMS DATE TYPE CONDITION / CODE ATTENDING STATUS SOURCE 01/26/2018 Unknown 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, [place]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 / Hospital Z79.01(ICD-10) Repository 11/10/2017 Unknown Z95.2 - Presence of Luke, [place] Active [facility] prosthetic heart Community valve / Hospital Z95.2(ICD-10) Repository 11/10/2017 Unknown Z98.890 - Other Luke, Rodrigo Active [place] specified Community postprocedural Hospital states / Repository Z98.890(ICD-10) 06/14/2017 Unknown E78.5 - Luke, [place] Active [facility] Hyperlipidemia, Community unspecified / Hospital E78.5(ICD-10) Repository 06/14/2017 Unknown Z79.899 - Other long Luke, [place] Active [place] term (current) drug Community therapy / Hospital Z79.899(ICD-10) Repository PROCEDURES PROCEDURES No Procedure Records FoundRESULTS RESULTS PROTHROMBIN TIME W/INR Collected: 06/02/2018 Status: F Source: [place] 12:16 PM [facility] TYPE CODE TESTS RESULT OUT OF RANGE REFERENCE UNITS LAB L300.4150 11.7-14.9 SECONDS High PROTIME 29.8 LAB L300.4200 Normal INR 2.8 Performed By: #### L300.3900 #### [facility] [address], [place], [address] PROTHROMBIN TIME W/INR Collected: 05/05/2018 Status: F Source: [place] 9:45 AM [facility] TYPE CODE TESTS RESULT OUT OF RANGE REFERENCE UNITS LAB L300.4150 11.7-14.9 SECONDS High PROTIME 32.1 LAB L300.4200 Normal INR 3.1 Performed By: #### L300.3900 #### [facility] [address] [place], [address] PROTHROMBIN TIME W/INR Collected: 04/13/2018 Status: F Source: [place] 11:30 AM [facility] TYPE CODE TESTS RESULT OUT OF RANGE REFERENCE UNITS LAB L300.4150 11.7-14.9 SECONDS High PROTIME 30.6 LAB L300.4200 Normal INR 2.9 Performed By: #### L300.3900 #### [facility] [address] [facility] [place], [address] PROTHROMBIN TIME W/INR Collected: 03/16/2018 Status: F Source: [place] 11:45 AM [facility] TYPE CODE TESTS RESULT OUT OF RANGE REFERENCE UNITS LAB L300.4150 11.7-14.9 SECONDS High PROTIME 33.7 LAB L300.4200 Normal INR 3.3 Performed By: #### L300.3900 #### [facility] [address] [place], [address] PROTHROMBIN TIME W/INR Collected: 02/18/2018 Status: F Source: [place] 9:54 AM [facility] TYPE CODE TESTS RESULT OUT OF RANGE REFERENCE UNITS LAB L300.4150 11.7-14.9 SECONDS High PROTIME 32.7 LAB L300.4200 Normal INR 3.2 Performed By: #### L300.3900 #### [facility] [address] [place], [address] PROTHROMBIN TIME W/INR Collected: 01/26/2018 Status: F Source: [place] 10:00 AM [facility] TYPE CODE TESTS RESULT OUT OF RANGE REFERENCE UNITS LAB L300.4150 11.7-14.9 SECONDS High PROTIME 34.6 LAB L300.4200 Normal INR 3.4 Performed By: #### L300.3900 #### [facility] [address] [place], [address] MA MAMMOGRAM SCREENING Observed: 01/10/2018 Status: F Source: [facility] W/KAYLYNN 11:30 AM FOUNDATION REPOSITORY ORIGINAL FROM: [address] [address] PROCEDURE FOR: WILMA MAY [address] [place] [address] Home: PID#: [id number] Exam#: [id number] : 1945 Age: 72 TO: NICOL REBECCA LEAD CLINICAL RESEARCH COORDINATOR-C [address], [place] [address] #[id number] DIGITAL SCREENING MAMMOGRAM 3D/2D WITH CAD WITH MEDIOLATERAL OBLIQUE CRANIOCAUDAL: 01/10/2018 Comparison is made to exams dated: 08/20/2017 ultrasound, 11/30/2016 mammogram, and 11/29/2015 mammogram - [facility]. The tissue of both breasts is predominately [...] is recommended. JELLY SHELTON MD ab/penrad:01/10/2018 17:03:00 [employer] Supervisor: LUANN HEDRICK (R)(M), [facility] letter sent: Normal BI-RADS 1&2 Mammogram BI-RADS: 2 Benign PROTHROMBIN TIME W/INR Collected: 12/30/2017 Status: F Source: [place] 10:31 AM [facility] TYPE CODE TESTS RESULT OUT OF RANGE REFERENCE UNITS LAB L300.4150 11.7-14.9 SECONDS High PROTIME 31.7 LAB L300.4200 Normal INR 3.0 Performed By: #### L300.3900 #### [facility] [place], [address] LIVER PROFILE Collected: 12/30/2017 Status: F Source: [place] 10:31 AM [facility] TYPE CODE TESTS RESULT OUT OF [...] 0.16 Performed By: #### L500.3400, L500.4100 #### [facility] [address] [place], [place], [address] LIPID PROFILE Collected: 12/30/2017 Status: F Source: [place] 10:31 AM [facility] TYPE CODE TESTS RESULT OUT OF [...] 37 Performed By: #### L500.3400, L500.4100 #### [facility] [address] [place], [place], [address] PROTHROMBIN TIME W/INR Collected: 12/07/2017 Status: F Source: [place] 10:12 AM [facility] TYPE CODE TESTS RESULT OUT OF RANGE REFERENCE UNITS LAB L300.4150 11.7-14.9 SECONDS High PROTIME 32.7 LAB L300.4200 Normal INR 3.2 Performed By: #### L300.3900 #### [facility] [address] [facility] [place], [address] PROTHROMBIN TIME W/INR Collected: 11/10/2017 Status: F Source: [place] 11:04 AM [facility] TYPE CODE TESTS RESULT OUT OF RANGE REFERENCE UNITS LAB L300.4150 11.7-14.9 SECONDS High PROTIME 32.5 LAB L300.4200 Normal INR 3.1 Performed By: #### L300.3900 #### [facility] [address] [place], [address] DOWNTIME REPORT Observed: 11/04/2017 Status: F Source: [place] 1:12 PM [facility] RE[facility]ITORY [facility] Medical Records Department [address] [place] [address] Downtime Report MR#: [id number] Acct: [id number] Name: WILMA MAY Rep #: [id number] : 1945 71 From: Singh Dawson PCP: Joelle Olguin MD Status: REG CLI This patient was seen during an EMR downtime October 18, 2017 - October 25, 2017. This patient may have a combination of paper and electronic documentation or all paper documentation. All documentation is viewable within the e-chart portion of [facility] for each patient visit. PROTHROMBIN TIME W/INR Collected: 10/21/2017 Status: F Source: [place] 9:40 AM [facility] RE[facility]ITORY Order Comment: RESULT(S) PREVIOUSLY REPORTED ON MANUAL REQUISITION DURING DOWNTIME. TYPE CODE TESTS RESULT OUT OF RANGE REFERENCE UNITS LAB L300.4150 11.7-14.9 SECONDS High PROTIME 32.0 LAB L300.4200 Normal INR 3.1 Performed By: #### L300.3900 #### [facility] [address] [place], [address] PROTHROMBIN TIME W/INR Collected: 09/20/2017 Status: F Source: [place] 11:49 AM [facility] TYPE CODE TESTS RESULT OUT OF RANGE REFERENCE UNITS LAB L300.4150 11.7-14.9 SECONDS High PROTIME 32.3 LAB L300.4200 Normal INR 3.1 Performed By: #### L300.3900 #### [facility] [address] [place], [address] PROTHROMBIN TIME W/INR Collected: 08/25/2017 Status: F Source: [place] 12:20 PM [facility] TYPE CODE TESTS RESULT OUT OF RANGE REFERENCE UNITS LAB L300.4150 11.7-14.9 SECONDS High PROTIME 30.4 LAB L300.4200 Normal INR 2.9 Performed By: #### L300.3900 #### [facility] [address] [place], [address] US BREAST RIGHT Observed: 08/20/2017 Status: F Source: [place] [employer] [facility] 1:00 PM FOUNDATION REPOSITORY ORIGINAL FROM: [facility] [address] [place] [address] PROCEDURE FOR: WILMA MAY [address] [place] [address] Home: PID#: [id number] Exam#: [id number] : 1945 Age: 71 TO: JOELLE OLGUIN MD [address] [place] [id number] #[id number] ULTRASOUND OF RIGHT BREAST: 08/20/2017 CLINICAL: 6 MONTHS FOLLOW-UP. Comparison is made to exams dated: 02/17/2017 ultrasound, 12/01/2016 ultrasound, and 11/30/2016 mammogram - [facility]. Color flow and real-time ultrasound of the [...] November 2017. JACINTO LOBO M.D. vfg/:08/20/2017 13:49:46 [employer] Supervisor: CARMELITA LAND RT(R), [facility] letter sent: Normal BI-RADS 1&2 Ultrasound BI-RADS: 2 Benign PROTHROMBIN TIME W/INR Collected: 08/02/2017 Status: F Source: [place] 10:50 AM [facility] Order Comment: Comments: STANDING ORDER Comments: STANDING ORDER TYPE CODE TESTS RESULT OUT OF RANGE REFERENCE UNITS LAB L300.4150 11.7-14.9 SECONDS High PROTIME 32.7 LAB L300.4200 Normal INR 3.2 Performed By: #### L300.3900 #### [facility] [address] [place], [address] CARDIOLOGY VISIT Observed: 07/07/2017 Status: F Source: [place] REPORT 11:35 AM [facility] 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 3. 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 She will maintain an INR 2.5-3.5. We will adjust the Coumadin as needed. Plan Detail Other Medications New: Discontinued: Additional Comments - Devonte Ramos NP-C Discussed the above patient with Dr. Sosa [...] prior to saving. 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 Z79.01 Coding Level of Care Code Off vis,est,level 3 Diagnoses History of mechanical aortic valve replacement Z95.2 Mixed hyperlipidemia E78.2 Hyperlipidemia type: mixed hyperlipidemia snf current use of anticoagulant Z79.01 07/06/17 1325 <Electronically signed by Devonte Ramos NP-C> Date Devonte Ramos LEAD CLINICAL RESEARCH COORDINATORAyoC 07/07/17 1135<Electronically signed by Shamar Sosa MD> Cosigner Signature: Date (if applicable) Shamar Sosa MD CC: Joelle Olguin MD PROTHROMBIN TIME W/INR Collected: 07/06/2017 Status: F Source: [place] 12:25 PM [facility] RE[facility] TYPE CODE TESTS RESULT OUT OF RANGE REFERENCE UNITS LAB L300.4150 11.7-14.9 SECONDS High PROTIME 27.9 LAB L300.4200 Normal INR 2.7 Performed By: #### L300.3900 #### [place] [facility] [address] [place], [address] LIVER PROFILE Collected: 06/14/2017 Status: F Source: [place] 11:46 AM [facility] RE[facility]IT[facility] TYPE CODE TESTS RESULT OUT OF [...] 0.15 Performed By: #### L500.3400, L500.4100 #### [facility] [address] [place], [address] LIPID PROFILE Collected: 06/14/2017 Status: F Source: [place] 11:46 AM [facility] RE[facility]IT[facility] TYPE CODE TESTS RESULT OUT OF [...] 40 Performed By: #### L500.3400, L500.4100 #### [facility] [address] [place], [address] PROTHROMBIN TIME W/INR Collected: 06/14/2017 Status: F Source: [place] 11:46 AM [facility] REPOSITORY TYPE CODE TESTS RESULT OUT OF RANGE REFERENCE UNITS LAB L300.4150 11.7-14.9 SECONDS High PROTIME 27.2 LAB L300.4200 Normal INR 2.6 Performed By: #### L300.3900 #### [facility] [address] [place], [address] ALLERGIES ALLERGIES DATE TYPE / CODE NAME / CODE REACTION SEVERITY SOURCE 07/06/2017 Drug Sulfa Itching Unknown [facility] Allergy/316865501(S (Sulfonamide Community NOMED CT) Antibiotics)/ Hospital L932417678(RX Repository NORM) 07/06/2017 Drug ezetimibe/F00 MUSCLE ACHES SV [facility] Allergy/785801069(S 5413673(RXNOR [facility] NOMED CT) M) Hospital Repository 07/06/2017 Miscellaneous iodine Vomiting SV [facility] Allergy/554647607(S Community NOM[facility]) Hospital Repository 07/06/2017 Miscellaneous lipitor MUSCLE ACHES SV [place] Allergy/574645235(S [facility] NOMED CT) Hospital Repository 07/06/2017 Miscellaneous zocor MUSCLE ACHES SV [facility] Allergy/185750193(S [facility] NOMED CT) Hospital Repository ENCOUNTERS ENCOUNTERS ADMIT/DISCHARGE ACCOUNT NUMBER ADMITTING ENCOUNTER LOCATION SOURCE CLASS 06/02/2018 [id number] [facility] ding:POLAB3 Repository 05/05/2018 [id number] [facility] ding:POLAB3 Repository 04/13/2018 [id number] [facility] ding:POLAB3 Repository 03/16/2018 [id number] [facility] ding:POLAB3 Repository 02/18/2018 [id number] [facility] ding:POLAB3 Repository 01/26/2018 [id number] [facility] ding:POLAB3 Repository 01/10/2018/01/11/20 [id number] Ambulatory [address] ding:[facility] Repository 12/30/2017 [id number] Ambulatory [facility] ding:POLAB3 Repository 12/07/2017 [id number] [facility] Repository 11/10/2017 [id number] [facility] ding:[facility] Repository 10/21/2017 [id number] [facility] Repository 09/20/2017 [id number] [facility] ding:[facility] Repository 08/25/2017 [id number] Ambulatory [facility] ding:POLAB3 Repository 08/20/2017/08/21/19 [id number] Ambulatory [address] ding:[facility] Repository 08/02/2017 [id number] [facility] ding:[facility] Repository 07/06/2017 [id number] Ambulatory [facility] Hospital ding:POLAB3 Repository 07/06/2017/07/06/19 [id number] Ambulatory BMSBuilding: [place] [address] Repository 07/03/2017 [id number] Ambulatory BMSBuilding: [facility] Repository 06/14/2017 [id number] Ambulatory [facility] ding:POLAB3 Repository PAYERS PAYERS ENCOUNTER GUARANTOR PAYER SUBSCRIBER SOURCE 06/02/2018 W[place]MA Thomas Primary WILMA K [place] [address] Insurance:MEDICARE SNYDERDOB: [address] PART A [facility] [id number] [place], Number: Repository [place] [address]Zco: [id number] Date:2018-06-02 () 06/02/2018 Secondary WILMA K [place] Insurance:MUTUAL OF SNYDERDOB: [facility] Number: [id number] Hospital [id number] Repository Date:6587-77-80ZTKSEN OF [place] [address]QG: 06/02/2018 Tertiary NOT GIVENUNK [place] Insurance:SELF PAY [facility] Number: Effective Repository Date:2018-06-02 05/05/2018 WILMA Thomas Primary WILMA K [place] [address] Insurance:MEDICARE SNYDERDOB: Community [id number] [address] PART A [facility] [id number] [place], Number: Repository [place] [id number]: [id number] Date:2018-05-05 () 05/05/2018 Secondary WILMA K [place] Insurance:MUTUAL OF SNYDERDOB: [facility] Number: [id number] Hospital [id number] Repository Date:8421-49-86EFUMQM OF [facility] [place] [address]XG: 05/05/2018 Tertiary NOT GIVENUNK [place] Insurance:SELF PAY [facility] Number: Effective Repository Date:2018-05-05 04/13/2018 WILMA Martha Primary WILMA K [place] [address] Insurance:MEDICARE SNYDERDOB: Community [id number] [address] PART A [facility] [id number] [place], Number: Repository [place] [id number]: [id number] Date:2018-04-13 () 04/13/2018 Secondary WILMA K [place] Insurance:MUTUAL OF SNYDERDOB: [facility] Number: [id number] Hospital [id number] Repository Date:0074-09-17NIQQHI OF [place] [address]NJ: 04/13/2018 Tertiary NOT GIVENUNK [place] Insurance:SELF PAY [facility] Number: Effective Repository Date:2018-04-13 03/16/2018 WILMA Thomas Primary WILMA K [place] [address] Insurance:MEDICARE SNYDERDOB: Community [id number] [address] PART A [facility] [id number] [place], Number: Repository [place] [address]Lqy: [id number] Date:2018-03-16 () 03/16/2018 Secondary WILMA K [place] Insurance:MUTUAL OF SNYDERDOB: [facility] Number: [id number] Hospital [id number] Repository Date:2491-62-75ZFXJED OF [place], [place] [address]FL: 03/16/2018 Tertiary NOT GIVENUNK [place] Insurance:SELF PAY [facility] Number: Effective Repository Date:2018-03-16 02/18/2018 WILMA K Primary WILMA K [place] [address] Insurance:MEDICARE SNYDERDOB: [facility] [id number] [address] PART A [facility] [id number] [place], Number: Repository [place] [id number]: [id number] Date:2018-02-18 () 02/18/2018 Secondary WILMA K [place] Insurance:MUTUAL OF SNYDERDOB: [facility] Number: [id number] Hospital [id number] Repository Date:5993-10-87XVXOUW OF [place], [place] [address]EA: 02/18/2018 Tertiary NOT GIVENUNK [place] Insurance:SELF PAY [facility] Number: Effective Repository Date:2018-02-18 01/26/2018 WILMA K Primary WILMA K [place] [address] Insurance:MEDICARE SNYDERDOB: Community [id number] [address] PART A [facility] [id number] [place], Number: Repository [place] [address]Fmd: [id number] Date:2018-01-26 () 01/26/2018 Secondary WILMA K [place] Insurance:MUTUAL OF SNYDERDOB: [facility] Number: [id number] Hospital [id number] Repository Date:5174-60-35DVUUXW OF [place], [place] [address]JP: 01/26/2018 Tertiary NOT GIVENUNK [place] Insurance:SELF PAY [facility]: Effective Repository Date:2018-01-26 01/10/2018 WILMA K Primary WILMA Martha [facility] SNYDERDOB: Insurance:MEDICARE SNYDERDOB: [facility] [id number] BOX PART olic Number: [id number] Repository [address] [place] [id number] [place] [address] Date:2018-01-05[place] 8742-06-59Zhll , [place] [address]Acv: Name:[facility] LLCPO (WP) [address] [place] [address]IX: 01/10/2018 Secondary WILMA Martha [facility] Insurance:MUTUAL OF SNYDERDOB: [facility] Number: [id number] Repository [id number] BOX Date:2018-01-05[place] 1046-27-04Jkwy , [place] [address]Xli: Name:CMUTUAL [facility] [place] [address]ZZ: 12/30/2017 WILMA Martha Primary WILMA K [place] [address] Insurance:MEDICARE SNYDERDOB: [place] [id number] [address] PART A [facility] [id number] [place], Number: Repository [place] [id number]: [id number] Date:2017-12-30 () 12/30/2017 Secondary WILMA K [place] Insurance:MUTUAL OF SNYDERDOB: [facility] Number: [id number] Hospital [id number] Repository Date:2920-03-85QXIWNY OF [place], [place] [address]LQ: 12/30/2017 Tertiary NOT GIVENUNK [place] Insurance:SELF PAY [facility] Number: Effective Repository Date:2017-12-30 12/07/2017 WILMA Thomas Primary WILMA K [place] [address] Insurance:MEDICARE SNYDERDOB: Community [id number] [address] PART A [facility] [id number] [place], Number: Repository [place] [address]Mva: [id number] Date:2017-12-07 () 12/07/2017 Secondary WILMA K [place] Insurance:MUTUAL OF SNYDERDOB: [facility] Number: [id number] Hospital [id number] Repository Date:9734-70-08OMJGOX OF [place], [place] [address]TO: 12/07/2017 Tertiary NOT GIVENUNK [place] Insurance:SELF PAY [facility] Number: Effective Repository Date:2017-12-07 11/10/2017 WILMA Thomas Primary WILMA K [place] [address] Insurance:MEDICARE SNYDERDOB: Community [id number] [address] PART A [facility] [id number] [place], Number: Repository [place] [address]Jqr: [id number] Date:2017-11-10 () 11/10/2017 Secondary WILMA K Jewel Insurance:MUTUAL OF SNYDERDOB: [facility] Number: [id number] [facility] [id number] Repository Date:9096-14-60URAOMR [place], [place] [address]BO: 11/10/2017 Tertiary NOT GIVENUNK Stow Insurance:SELF PAY [facility] Number: Effective Repository Date:2017-11-10 10/21/2017 WILMA Thomas Primary WILMA K Stow SN[address] BOX Insurance:MEDICARE SNYDERDOB: Community [id number] [address] PART A [facility] [id number] [place], Number: Repository [place] [id number]: [id number] Date:2017-10-21 (HP) 10/21/2017 Secondary WILMA K Jewel Insurance:MUTUAL OF SNYDERDOB: [facility] Number: [id number] Hospital [id number] Repository Date:6424-42-47DLUNQU OF [place], [place] [address]TH: 10/21/2017 Tertiary NOT GIVENUNK St[place] Insurance:SELF PAY [facility] Number: Effective Repository Date:2017-10-21 09/20/2017 WILMA K Primary WILMA K Stow [address] Insurance:MEDICARE SNYDERDOB: Community [id number] [address] PART A [facility] [id number] [place], Number: Repository [place] [id number]: [id number] Date:2017-09-20 () 09/20/2017 Secondary WILMA K Stow Insurance:MUTUAL OF SNYDERDOB: [facility] Number: [id number] Hospital [id number] Repository Date:3192-79-65MBSSWI OF [place], [place] [address]IW: 09/20/2017 Tertiary NOT GIVENUNK [place] Insurance:SELF PAY [facility] Number: Effective Repository Date:2017-09-20 08/25/2017 WILMA K Primary WILMA K Jewel [address] Insurance:MEDICARE SNYDERDOB: [facility] [address] [address] PART A [facility] [id number] [place], Number: Repository [place] [id number]: [id number] Date:2017-08-25 () 08/25/2017 Secondary WILMA K Jewel Insurance:MUTUAL OF SNYDERDOB: [facility] Number: [id number] Hospital [id number] Repository Date:5296-19-13WPGJCB OF [place], [place] [address]YL: 08/25/2017 Tertiary NOT GIVENUNK [place] Insurance:SELF PAY [facility] Number: Effective Repository Date:2017-08-25 08/20/2017 WILMA Thomas Primary WILMA [facility] SNYDERDOB: Insurance:MEDICARE SNYDERDOB: [facility] [id number] BOX PART BPolic Number: [id number] Repository [address] [id number] [facility] , [place] [address]Zeu: Date:2017-08-04 [address] 5585-28-96Rtmy , [place] [address]Ixk: (WP) Name:[facility] Administrators LLCPO (WP) [address] [place] [address]IZ: 08/20/2017 Secondary WILMA [facility] Insurance:MUTUAL OF SNYDERDOB: [facility] Number: [id number] Repository [id number] BOX Date:2017-08-04 [address] [id number] , [place] [address]Jas: Name:CMUTUAL OF [place] ([place]) [address]YT: 08/02/2017 WILMA K Primary WILMA K Jewel [address] Insurance:MEDICARE SNYDERDOB: Community [id number] [address] PART A [facility] [id number] [place], Number: Repository [place] [id number]: [id number] Date:2017-08-02 () 08/02/2017 Secondary WILMA K Jewel Insurance:MUTUAL OF SNYDERDOB: [facility] Number: [id number] Hospital [id number] Repository Date:[id number] [facility] [place] [address]UB: 08/02/2017 Tertiary NOT GIVENUNK Jewel Insurance:SELF PAY [facility] Number: Effective Repository Date:2017-08-02 07/06/2017 WILMA K Primary WILMA K Jewel [address] Insurance:MEDICARE SNYDERDOB: Community [id number] [address] PART A [facility] [id number] [place], Number: Repository [place] [id number]: [id number] Date:2017-07-06 () 07/06/2017 Secondary WILMA K Stow Insurance:MUTUAL OF SNYDERDOB: [facility] Number: [id number] Hospital [id number] Repository Date:7981-63-10COMBSA OF [place], [place] [address]HA: 07/06/2017 Tertiary NOT GIVENUNK Jewel Insurance:SELF PAY [facility] Number: Effective Repository Date:2017-07-06 07/06/2017 WILMA K Primary WILMA K Jewel [address] Insurance:MEDICARE SNYDERDOB: [facility] [id number] [address] PART A [facility] [id number] [place], Number: Repository [place] [id number]: [id number] Date:2017-04-24 () 07/06/2017 Secondary WILMA K Stow Insurance:MUTUAL OF SNYDERDOB: [facility] Number: [id number] Hospital [id number] Repository Date:6585-16-67DZAOOE OF [place], [place] [address]ZX: 07/06/2017 Tertiary NOT GIVENUNK Jewel Insurance:SELF PAY [facility] Number: Effective Repository Date:2017-04-24 07/03/2017 Wilma K Primary Wilma K Stow [address] Insurance:MEDICARE SnyderDOB: [facility] [address] [address] PART A [facility] [id number] Number: Repository [place] [id number]: [id number] Date:2017-07-03 () 07/03/2017 Secondary WILMA K Jewel Insurance:MUTUAL OF SNYDERDOB: [facility] Number: [id number] Hospital [id number] Repository Date:2509-58-85CPYJYP OF [facility], [place] [address]BR: 07/03/2017 Tertiary NOT GIVENUNK Jewel Insurance:SELF PAY [facility] Number: Effective Repository Date:2017-07-03 06/14/2017 Wilma Martha Primary Wilma Martha Stow [address] Insurance:MEDICARE SnyderDOB: [address] PART A [facility] [id number], Number: Repository [place] [id number]: [id number] Date:2017-06-14 () 06/14/2017 Secondary WILMA Thomas Jewel Insurance:MUTUAL OF SNYDERDOB: [facility] Number: [id number] Hospital [id number] Repository Date:3085-71-00KOWELY OF [place], [place] [address]UU: 06/14/2017 Tertiary NOT GIVENUNK Stow Insurance:SELF PAY [facility] Number: Effective Repository Date:2017-06-14
== END ==
PROVIDERS: Family Provider Family Medicine; PCP Family Medicine; Visit Provider Internal Medicine Cardiovascular Disease
DX: Z98.890 Other specified postprocedural states (principal); Z95.2 Presence of prosthetic heart valve; Z79.01 Long term (current) use of anticoagulants
CPT/HCPCS: 36415; 85610

== ENCOUNTER → 2018-06-28 13:13 | Outpatient (CLI) | payer MEDICARE, OTHER, SELFPAY ==
[2018-06-28 13:51] LABS: International Normalized Ratio 2.9; Prothrombin Time (Protime)PT. 30.7 SECONDS (11.7-14.9)
[2018-06-28 14:16] LABS: AST(SGOT) 32 U/L (15-37); Alanine Aminotransfer ALT/SGPT 34 U/L (13-56); Albumin, Serum 3.6 g/dL (3.2-5.0); Alkaline Phosphatase 79 U/L (45-117); Bilirubin, Direct 0.15 mg/dL (0.00-0.30); Cholesterol 209 mg/dL (200); Globulin 3.8 g/dL (2.2-4.2); High Density Lipoprotein 66 mg/dL; Protein, Total 7.4 g/dL (6.4-8.2); Triglycerides 225 mg/dL; Very Low Density Lipoprotein 45 mg/dL (5-40)
== END ==
PROVIDERS: Family Provider Family Medicine; PCP Family Medicine; Visit Provider Internal Medicine Cardiovascular Disease
DX: Z79.01 Long term (current) use of anticoagulants (principal); Z79.899 Other long term (current) drug therapy; Z95.2 Presence of prosthetic heart valve; Z98.890 Other specified postprocedural states
CPT/HCPCS: 36415; 80061; 80076; 85610

== ENCOUNTER → 2018-07-07 11:17 | Outpatient (CLI) | payer MEDICARE, OTHER, SELFPAY ==
[2018-07-07 10:58] VITALS: BMI 37.0
[2018-07-07 13:40] LABS: Thyroid Stim Hormone (TSH) 1.16 uIU/mL (0.358-3.74)
== END ==
PROVIDERS: Referring Provider Internal Medicine Cardiovascular Disease; Visit Provider Internal Medicine Cardiovascular Disease
DX: Z79.899 Other long term (current) drug therapy (principal)
CPT/HCPCS: 36415; 84443

== ENCOUNTER 2018-07-25 09:05 | Outpatient (RCR) | payer MEDICARE, OTHER, SELFPAY ==
[2018-07-07 10:58] VITALS: BMI 37.0
[2018-07-25 09:58] LABS: Prothrombin Time (Protime)PT. 36.1 SECONDS (11.7-14.9)
[2018-07-25 10:04] LABS: International Normalized Ratio 3.6
== END 2018-07-25 10:05 | disposition home or self-care (01) ==
LOC: LAB 09:05
PROVIDERS: Referring Provider Internal Medicine Cardiovascular Disease; Visit Provider Internal Medicine Cardiovascular Disease
DX: Z98.890 Other specified postprocedural states (principal); Z95.2 Presence of prosthetic heart valve; Z79.01 Long term (current) use of anticoagulants
CPT/HCPCS: 36415; 85610

== ENCOUNTER → 2018-07-28 08:53 | Outpatient (CLI) | payer MEDICARE, OTHER, SELFPAY ==
[2018-07-07 10:58] VITALS: BMI 37.0
--- NOTE | 2018-07-28 08:56 | ECHOD_ITS ---
Reason For Study: VALVE REPLACEMENT Procedure This was a 2D Doppler, Color Flow transthoracic echocardiogram. The study was technically difficult. Exam performed in department. Left Ventricle Normal LV size. Left ventricular systolic function is normal. The estimated ejection fraction is 60 %. Stage 1 diastolic dysfunction. No regional wall motion abnormalities noted. Right Ventricle Normal RV size. Normal systolic function. Atria Normal left atrium. Normal right atrium. Mitral Valve Normal mitral valve. Tricuspid Valve Normal tricuspid valve. Mild tricuspid valve insufficiency. Pulmonary artery systolic pressure is 24 mmHg. Aortic Valve Peak aortic valve gradient 19 mmHg. Mean aortic valve gradient 10 mmHg. Mild aortic stenosis. Stable appearing mechanical aortic valve apparatus. Mild transvalvular insufficiency of the aortic valve. MMode/2D Measurements & Calculations LVIDd: 4.6 cm IVSd: 0.80 cm LVOT diam: 2.0 cm LVIDs: 3.0 cm LVPWd: 0.84 cm RVDd: 3.7 cm FS: 35.2 % LVOT area: 3.1 cm2 Ao root diam: 4.0 cm LAV(MOD-sp4): 26.1 ml LVAd ap4: 27.0 cm2 EDV(MOD-sp4): 77.8 ml EDV(sp4-el): 81.7 ml LVAs ap4: 15.7 cm2 ESV(MOD-sp4): 32.0 ml ESV(sp4-el): 33.2 ml EF(MOD-sp4): 58.9 % EF(sp4-el): 59.4 % SV(MOD-sp4): 45.8 ml SV(sp4-el): 48.5 ml LA A4 area: 13.5 cm2 LA dimension(2D): 3.7 cm RA A4 area: 11.3 cm2 Time Measurements MV dec time: 0.22 sec Doppler Measurements & Calculations MV E max oc: 70.7 cm/sec Lat Peak E' Oc: 9.2 cm/sec Med Peak E' Oc: 6.8 cm/sec MV A max oc: 85.4 cm/sec E/E' lat: 7.7 E/E' med: 10.4 MV E/A: 0.83 Ao V2 max: 217.7 cm/sec LV V1 max: 89.4 cm/sec SV(LVOT): 62.8 ml Ao max P.0 mmHg LV V1 max P.2 mmHg Ao V2 mean: 158.1 cm/sec LV V1 mean P.0 mmHg Ao mean P.8 mmHg LV V1 mean: 68.2 cm/sec Ao V2 VTI: 39.2 cm LV V1 VTI: 20.0 cm MARYURI(I,D): 1.6 cm2 MARYURI(V,D): 1.3 cm2 PA V2 max: 85.5 cm/sec PI end-d oc: 93.6 cm/sec TR max oc: 245.4 cm/sec TR max P.1 mmHg Interpretation Summary Normal LV size. Left ventricular systolic function is normal. The estimated ejection fraction is 60 %. Stage 1 diastolic dysfunction. Mean aortic valve gradient 10 mmHg. Stable appearing mechanical aortic valve apparatus. Ordering Physician: Rodrigo Butler Referring Physician: Rodrigo Butler Performed By: Lyla Castano, RDCS, RVT
== END ==
PROVIDERS: Referring Provider Internal Medicine Cardiovascular Disease; Visit Provider Internal Medicine Cardiovascular Disease
DX: R07.9 Chest pain, unspecified (principal)
CPT/HCPCS: 93306

== ENCOUNTER → 2018-08-08 10:13 | Outpatient (CLI) | payer MEDICARE, OTHER, SELFPAY ==
[2018-07-07 10:58] VITALS: BMI 37.0
[2018-08-08 12:45] LABS: Prothrombin Time (Protime)PT. 31.1 SECONDS (11.7-14.9)
== END ==
PROVIDERS: Visit Provider Internal Medicine Cardiovascular Disease
DX: Z95.2 Presence of prosthetic heart valve (principal); Z98.890 Other specified postprocedural states; Z79.01 Long term (current) use of anticoagulants
CPT/HCPCS: 36415; 85610

== ENCOUNTER → 2018-08-29 09:31 | Outpatient (CLI) | payer MEDICARE, OTHER, SELFPAY ==
[2018-07-07 10:58] VITALS: BMI 37.0
[2018-08-29 13:04] LABS: International Normalized Ratio 3.2; Prothrombin Time (Protime)PT. 32.7 SECONDS (11.7-14.9)
== END ==
PROVIDERS: Visit Provider Internal Medicine Cardiovascular Disease
DX: Z95.2 Presence of prosthetic heart valve (principal); Z98.890 Other specified postprocedural states; Z79.01 Long term (current) use of anticoagulants
CPT/HCPCS: 36415; 85610

== ENCOUNTER 2018-09-23 09:46 | Outpatient (RCR) | payer MEDICARE, OTHER, SELFPAY ==
[2018-07-07 10:58] VITALS: BMI 37.0
[2018-09-23 12:55] LABS: Prothrombin Time (Protime)PT. 31.3 SECONDS (11.7-14.9)
== END 2018-10-14 23:59 ==
LOC: POLAB3 09:46
PROVIDERS: Visit Provider Internal Medicine Cardiovascular Disease
DX: Z98.890 Other specified postprocedural states (principal); Z95.2 Presence of prosthetic heart valve; Z79.01 Long term (current) use of anticoagulants
CPT/HCPCS: 36415; 85610

== ENCOUNTER → 2018-10-18 | Outpatient (CLI) | payer MEDICARE, OTHER, SELFPAY ==
[2018-07-07 10:58] VITALS: BMI 37.0
[2018-10-18 12:47] LABS: International Normalized Ratio 3.1; Prothrombin Time (Protime)PT. 32.2 SECONDS (11.7-14.9)
== END | disposition home or self-care (01) ==
PROVIDERS: Visit Provider Internal Medicine Cardiovascular Disease
DX: Z95.2 Presence of prosthetic heart valve (principal); Z98.890 Other specified postprocedural states; Z79.01 Long term (current) use of anticoagulants
CPT/HCPCS: 36415; 85610

== ENCOUNTER 2018-11-09 10:05 | Outpatient (RCR) | payer MEDICARE, OTHER, SELFPAY ==
[2018-07-07 10:58] VITALS: BMI 37.0
[2018-11-09 12:31] LABS: International Normalized Ratio 3.4; Prothrombin Time (Protime)PT. 34.9 SECONDS (11.7-14.9)
== END 2018-11-13 23:59 ==
LOC: POLAB3 10:05
PROVIDERS: Visit Provider Internal Medicine Cardiovascular Disease
DX: Z98.890 Other specified postprocedural states (principal); Z95.2 Presence of prosthetic heart valve; Z79.01 Long term (current) use of anticoagulants
CPT/HCPCS: 36415; 85610

== ENCOUNTER 2018-12-01 09:15 | Outpatient (RCR) | payer MEDICARE, OTHER, SELFPAY ==
[2018-07-07 10:58] VITALS: BMI 37.0
[2018-12-01 12:41] LABS: International Normalized Ratio 1.9; Prothrombin Time (Protime)PT. 21.7 SECONDS (11.7-14.9)
== END 2018-12-14 23:59 ==
LOC: POLAB3 09:15
PROVIDERS: Visit Provider Internal Medicine Cardiovascular Disease
DX: Z98.890 Other specified postprocedural states (principal); Z95.2 Presence of prosthetic heart valve; Z79.01 Long term (current) use of anticoagulants
CPT/HCPCS: 36415; 85610

== ENCOUNTER → 2018-12-08 | Outpatient (CLI) | payer MEDICARE, OTHER, SELFPAY ==
[2018-07-07 10:58] VITALS: BMI 37.0
[2018-12-08 12:59] LABS: International Normalized Ratio 2.2; Prothrombin Time (Protime)PT. 24.4 SECONDS (11.7-14.9)
== END | disposition home or self-care (01) ==
LOC: POLAB3 09:43
PROVIDERS: Visit Provider Internal Medicine Cardiovascular Disease
DX: Z79.01 Long term (current) use of anticoagulants (principal); Z98.890 Other specified postprocedural states; Z95.2 Presence of prosthetic heart valve
CPT/HCPCS: 36415; 85610

== ENCOUNTER → 2018-12-15 | Outpatient (CLI) | payer MEDICARE, OTHER, SELFPAY ==
[2018-07-07 10:58] VITALS: BMI 37.0
[2018-12-15 13:34] LABS: International Normalized Ratio 2.4; Prothrombin Time (Protime)PT. 26.1 SECONDS (11.7-14.9)
== END | disposition home or self-care (01) ==
LOC: POLAB3 09:11
PROVIDERS: Visit Provider Internal Medicine Cardiovascular Disease
DX: Z98.890 Other specified postprocedural states (principal); Z95.2 Presence of prosthetic heart valve; Z79.01 Long term (current) use of anticoagulants
CPT/HCPCS: 36415; 85610

== ENCOUNTER 2019-01-04 09:23 | Outpatient (RCR) | payer MEDICARE, OTHER, SELFPAY ==
[2018-07-07 10:58] VITALS: BMI 37.0
[2018-12-22 12:43] LABS: International Normalized Ratio 2.3; Prothrombin Time (Protime)PT. 24.9 SECONDS (11.7-14.9)
[2019-01-04 12:22] LABS: Prothrombin Time (Protime)PT. 36.4 SECONDS (11.7-14.9)
[2019-01-04 12:36] LABS: International Normalized Ratio 3.6
[2019-01-04 12:37] LABS: AST(SGOT) 29 U/L (15-37); Alanine Aminotransfer ALT/SGPT 32 U/L (13-56); Albumin, Serum 3.4 g/dL (3.2-5.0); Alkaline Phosphatase 72 U/L (45-117); Bilirubin, Direct 0.16 mg/dL (0.00-0.30); Cholesterol 186 mg/dL (200); Globulin 3.5 g/dL (2.2-4.2); High Density Lipoprotein 64 mg/dL; Protein, Total 6.9 g/dL (6.4-8.2); Triglycerides 194 mg/dL; Very Low Density Lipoprotein 39 mg/dL (5-40)
== END 2019-01-14 23:59 ==
LOC: POLAB3 09:23
PROVIDERS: Visit Provider Internal Medicine Cardiovascular Disease
DX: Z98.890 Other specified postprocedural states (principal); Z95.2 Presence of prosthetic heart valve; Z79.01 Long term (current) use of anticoagulants; R07.9 Chest pain, unspecified
CPT/HCPCS: 36415; 80061; 80076; 85610

== ENCOUNTER 2019-01-25 09:18 | Outpatient (RCR) | payer MEDICARE, OTHER, SELFPAY ==
[2018-07-07 10:58] VITALS: BMI 37.0
[2019-01-25 12:43] LABS: International Normalized Ratio 2.8; Prothrombin Time (Protime)PT. 29.7 SECONDS (11.7-14.9)
[2019-01-27 12:32] LABS: International Normalized Ratio 2.7; Prothrombin Time (Protime)PT. 28.4 SECONDS (11.7-14.9)
== END 2019-02-13 23:59 ==
LOC: POLAB3 09:18
PROVIDERS: Visit Provider Internal Medicine Cardiovascular Disease
DX: Z98.890 Other specified postprocedural states (principal); Z95.2 Presence of prosthetic heart valve; Z79.01 Long term (current) use of anticoagulants
CPT/HCPCS: 36415; 85610

== ENCOUNTER 2019-02-12 11:41 | Emergency (ER) | payer MEDICARE, OTHER, SELFPAY ==
[2018-07-07 10:58] VITALS: BMI 37.0
[2019-02-12 11:43] VITALS: BP 138/77; PULSE 82; RESP 17; TEMP 37.2; O2SAT 94; BMI 36.9
--- NOTE | 2019-02-12 12:29 | ED.VISSUMM ---
- ER Visit Summary Date of Service: 02/12/19 Chief Complaint: Urinary symptoms History of Present Illness: The patient is a 73 F who presents the emergency department with a complaint of dysuria, frequency, and hematuria. She tells me that 2 weeks ago she was diagnosed with a kidney infection was placed on an unknown biotic. After 5 days she returned to the doctor noting no improvement and she was changed to nitrofurantoin. She really took that for 5 days noting that she was having some side effects. Things were okay but now the patient notes return of her symptoms. She does not have any back pain. No nausea vomiting. No fevers but she does note chills and sweats. She has pelvic pressure. No vaginal discharge. Patient is on Coumadin due to a mechanical heart valve Physical Examination: Afebrile vital signs stable Gen: Well-nourished well-developed Head: Normocephalic atraumatic Eyes: Perrl EOMI ENT: TMs clear no rhinorrhea moist mucous membranes Neck: Supple no lymphadenopathy no JVD nontender CVS: Regular rate rhythm no murmurs normal S1-S2 Respiratory: No distress clear to auscultation bilaterally chest nontender Abdomen: Soft nontender nondistended normal bowel sounds no masses Back: Nontender Extremity: Nontender no edema Skin: Normal color no rash Neuro: alert orientated ?3 CN II-XII intact normal strength sensation Psych: Normal affect normal mood Test Results: INR is 2.7. Urinalysis positive nitrates positive leukocyte esterase 5100 white cells 25-50 red blood cells 2+ bacteria. Emergency Department Course and Treatment: Urine culture will be sent. We will place her on Keflex and Pyridium. Return if worsening or concerns Impression: 1. Acute cystitis 2. Coumadin coagulopathy This note was generated with Spot Influenceation software. It may contain incorrect words, spelling, and punctuation that were not noted in review of the chart prior to signing ED Disposition - Plan for ED Patient: Disposition: Home or Assisted Living Instructions: Bladder Infection, Female (Adult) Prescriptions: Cephalexin [Keflex] 500 mg PO Q6 #28 cap Transmission Status: Pending to SILVIA MELO TAYO CASPER Phenazopyridine HCl [Pyridium] 200 mg PO TID #9 tab Transmission Status: Pending to Kassandra MELO CR PENNIE Referrals: Alex Calix DO [Primary Care Provider] - 3-5 Days if not improving
[2019-02-12 12:36] LABS: Color, Urine Yellow (Yellow); Glucose, Dipstick Normal (Normal); Ketone-Dipstick Negative (Negative); Leukocyte Esterase-Dipstick 500 /ul (Negative); Mucous, Urine 0 SEEN /hpf (<or=2+); Nitrite-Dipstick Positive (Negative); Occult Blood-Urine 250 /ul (Negative); Protein-Dipstick 100 mg/dl (Negative); Urine Bilirubin Dipstick Negative (Negative); Urine Clarity Cloudy (Clear); Urine Urobilinogen Normal (Normal); Urine pH 6.5 (5.0 - 8.0)
[2019-02-12 12:39] LABS: International Normalized Ratio 2.7; Prothrombin Time (Protime)PT. 28.8 SECONDS (11.7-14.9)
[2019-02-12 12:43] LABS: Bacteria 2+ /hpf (None Seen); Red Blood Cells-Urine 25-50 SEEN /hpf (0-5); Squamous Epithelial Cells - UA 0-5 SEEN /hpf (5-10); White Blood Cells 50-100 SEEN /hpf (0-5)
[2019-02-12 13:08] VITALS: BP 133/83; PULSE 84; RESP 16
== END 2019-02-12 13:09 | disposition home or self-care (01) ==
PROVIDERS: Emergency Provider Emergency Medicine; Family Provider Student in an Organized Health Care Education/Training Program; PCP Student in an Organized Health Care Education/Training Program
DX: N30.01 Acute cystitis with hematuria (principal); R79.1 Abnormal coagulation profile; T45.515A Adverse effect of anticoagulants, initial encounter; Y92.9 Unspecified place or not applicable; I10 Essential (primary) hypertension; E78.00 Pure hypercholesterolemia, unspecified; Z95.2 Presence of prosthetic heart valve; Z79.82 Long term (current) use of aspirin; Z79.899 Other long term (current) drug therapy
CPT/HCPCS: 81001; 85610; 87086; 87088; 87186; 99283; A4216

== ENCOUNTER → 2019-02-16 10:31 | Outpatient (CLI) | payer MEDICARE, OTHER, SELFPAY ==
[2019-02-12 11:43] VITALS: BMI 36.9
[2019-02-16 12:58] LABS: International Normalized Ratio 2.9; Prothrombin Time (Protime)PT. 30.5 SECONDS (11.7-14.9)
== END ==
PROVIDERS: Family Provider Student in an Organized Health Care Education/Training Program; PCP Student in an Organized Health Care Education/Training Program; Visit Provider Internal Medicine Cardiovascular Disease
DX: Z98.890 Other specified postprocedural states (principal); Z95.2 Presence of prosthetic heart valve; Z79.01 Long term (current) use of anticoagulants
CPT/HCPCS: 36415; 85610

== ENCOUNTER → 2019-02-23 12:05 | Outpatient (CLI) | payer MEDICARE, OTHER, SELFPAY ==
[2019-02-12 11:43] VITALS: BMI 36.9
[2019-02-23 13:24] LABS: International Normalized Ratio 2.9; Prothrombin Time (Protime)PT. 30.2 SECONDS (11.7-14.9)
== END ==
PROVIDERS: Family Provider Student in an Organized Health Care Education/Training Program; PCP Student in an Organized Health Care Education/Training Program; Visit Provider Internal Medicine Cardiovascular Disease
DX: Z79.01 Long term (current) use of anticoagulants (principal); Z95.2 Presence of prosthetic heart valve; Z98.890 Other specified postprocedural states
CPT/HCPCS: 36415; 85610

== ENCOUNTER → 2019-03-08 11:46 | Outpatient (CLI) | payer MEDICARE, OTHER, SELFPAY ==
[2019-02-12 11:43] VITALS: BMI 36.9
[2019-03-08 12:59] LABS: International Normalized Ratio 2.6; Prothrombin Time (Protime)PT. 28.2 SECONDS (11.7-14.9)
== END ==
PROVIDERS: Family Provider Student in an Organized Health Care Education/Training Program; PCP Student in an Organized Health Care Education/Training Program; Visit Provider Internal Medicine Cardiovascular Disease
DX: Z79.01 Long term (current) use of anticoagulants (principal); Z98.890 Other specified postprocedural states; Z95.2 Presence of prosthetic heart valve
CPT/HCPCS: 36415; 85610

== ENCOUNTER → 2019-03-23 10:02 | Outpatient (CLI) | payer MEDICARE, OTHER, SELFPAY ==
[2019-03-23 12:35] LABS: International Normalized Ratio 2.6; Prothrombin Time (Protime)PT. 28.1 SECONDS (11.7-14.9)
== END ==
PROVIDERS: Family Provider Student in an Organized Health Care Education/Training Program; PCP Student in an Organized Health Care Education/Training Program; Visit Provider Internal Medicine Cardiovascular Disease
DX: Z79.01 Long term (current) use of anticoagulants (principal); Z95.2 Presence of prosthetic heart valve; Z98.890 Other specified postprocedural states
CPT/HCPCS: 36415; 85610

== ENCOUNTER → 2019-04-06 11:57 | Outpatient (CLI) | payer MEDICARE, OTHER, SELFPAY ==
[2019-04-06 12:57] LABS: International Normalized Ratio 2.7
== END ==
PROVIDERS: Family Provider Student in an Organized Health Care Education/Training Program; PCP Student in an Organized Health Care Education/Training Program; Visit Provider Internal Medicine Cardiovascular Disease
DX: Z79.01 Long term (current) use of anticoagulants (principal); Z98.890 Other specified postprocedural states; Z95.2 Presence of prosthetic heart valve
CPT/HCPCS: 36415; 85610

== ENCOUNTER → 2019-04-28 11:04 | Outpatient (CLI) | payer MEDICARE, OTHER, SELFPAY ==
[2019-04-28 12:58] LABS: International Normalized Ratio 2.7; Prothrombin Time (Protime)PT. 29.1 SECONDS (11.7-14.9)
== END ==
PROVIDERS: Family Provider Student in an Organized Health Care Education/Training Program; PCP Student in an Organized Health Care Education/Training Program; Visit Provider Internal Medicine Cardiovascular Disease
DX: Z95.2 Presence of prosthetic heart valve (principal); Z79.01 Long term (current) use of anticoagulants; Z98.890 Other specified postprocedural states
CPT/HCPCS: 36415; 85610

== ENCOUNTER 2019-05-19 09:20 | Outpatient (RCR) | payer MEDICARE, OTHER, SELFPAY ==
[2019-05-19 13:03] LABS: International Normalized Ratio 3.7; Prothrombin Time (Protime)PT. 37.1 SECONDS (11.7-14.9)
== END 2019-06-16 23:59 ==
LOC: POLAB3 09:20
PROVIDERS: Family Provider Student in an Organized Health Care Education/Training Program; PCP Student in an Organized Health Care Education/Training Program; Visit Provider Internal Medicine Cardiovascular Disease
DX: Z98.890 Other specified postprocedural states (principal); Z95.2 Presence of prosthetic heart valve; Z79.01 Long term (current) use of anticoagulants
CPT/HCPCS: 36415; 85610

== ENCOUNTER → 2019-05-26 11:18 | Outpatient (CLI) | payer MEDICARE, OTHER, SELFPAY ==
[2019-05-26 12:51] LABS: International Normalized Ratio 2.8
== END ==
PROVIDERS: Family Provider Student in an Organized Health Care Education/Training Program; PCP Student in an Organized Health Care Education/Training Program; Visit Provider Internal Medicine Cardiovascular Disease
DX: Z95.2 Presence of prosthetic heart valve (principal); Z98.890 Other specified postprocedural states; Z79.01 Long term (current) use of anticoagulants
CPT/HCPCS: 36415; 85610

== ENCOUNTER → 2019-06-01 12:03 | Outpatient (CLI) | payer MEDICARE, OTHER, SELFPAY ==
[2019-06-01 13:06] LABS: International Normalized Ratio 2.2; Prothrombin Time (Protime)PT. 24.4 SECONDS (11.7-14.9)
== END ==
PROVIDERS: PCP Student in an Organized Health Care Education/Training Program; Visit Provider Internal Medicine Cardiovascular Disease
DX: Z95.2 Presence of prosthetic heart valve (principal); Z79.01 Long term (current) use of anticoagulants; Z98.890 Other specified postprocedural states
CPT/HCPCS: 36415; 85610

== ENCOUNTER → 2019-06-15 11:16 | Outpatient (CLI) | payer MEDICARE, OTHER, SELFPAY ==
[2019-06-15 12:37] LABS: International Normalized Ratio 2.6; Prothrombin Time (Protime)PT. 28.2 SECONDS (11.7-14.9)
[2019-06-15 12:49] LABS: AST(SGOT) 26 U/L (15-37); Alanine Aminotransfer ALT/SGPT 31 U/L (13-56); Albumin, Serum 3.4 g/dL (3.2-5.0); Alkaline Phosphatase 69 U/L (45-117); Bilirubin, Direct 0.17 mg/dL (0.00-0.30); Cholesterol 193 mg/dL (200); Globulin 3.5 g/dL (2.2-4.2); High Density Lipoprotein 64 mg/dL; Protein, Total 6.9 g/dL (6.4-8.2); Triglycerides 196 mg/dL; Very Low Density Lipoprotein 39 mg/dL (5-40)
== END ==
PROVIDERS: PCP Student in an Organized Health Care Education/Training Program; Visit Provider Internal Medicine Cardiovascular Disease
DX: E78.2 Mixed hyperlipidemia (principal); Z79.01 Long term (current) use of anticoagulants; Z95.2 Presence of prosthetic heart valve; Z98.890 Other specified postprocedural states
CPT/HCPCS: 80061; 80076; 85610

== ENCOUNTER → 2019-06-28 10:41 | Outpatient (CLI) | payer MEDICARE, OTHER, SELFPAY ==
[2019-06-28 12:43] LABS: International Normalized Ratio 2.9
== END ==
PROVIDERS: PCP Student in an Organized Health Care Education/Training Program; Visit Provider Internal Medicine Cardiovascular Disease
DX: Z79.01 Long term (current) use of anticoagulants (principal); Z95.2 Presence of prosthetic heart valve; Z98.890 Other specified postprocedural states
CPT/HCPCS: 36415; 85610

== ENCOUNTER → 2019-07-12 10:44 | Outpatient (CLI) | payer MEDICARE, OTHER, SELFPAY ==
[2019-07-12 11:59] LABS: International Normalized Ratio 2.9; Prothrombin Time (Protime)PT. 30.6 SECONDS (11.7-14.9)
== END ==
PROVIDERS: PCP Student in an Organized Health Care Education/Training Program; Visit Provider Internal Medicine Cardiovascular Disease
DX: Z79.01 Long term (current) use of anticoagulants (principal); Z79.890 Hormone replacement therapy; Z95.2 Presence of prosthetic heart valve
CPT/HCPCS: 36415; 85610

== ENCOUNTER 2019-08-02 09:22 | Outpatient (RCR) | payer MEDICARE, OTHER, SELFPAY ==
[2019-08-02 10:22] LABS: Prothrombin Time (Protime)PT. 31.1 SECONDS (11.7-14.9)
== END 2019-08-02 18:00 | disposition home or self-care (01) ==
LOC: MTLAB 09:22
PROVIDERS: Family Provider Student in an Organized Health Care Education/Training Program; PCP Student in an Organized Health Care Education/Training Program; Referring Provider Internal Medicine Cardiovascular Disease; Visit Provider Internal Medicine Cardiovascular Disease
DX: Z98.890 Other specified postprocedural states (principal); Z95.2 Presence of prosthetic heart valve; Z79.01 Long term (current) use of anticoagulants
CPT/HCPCS: 36415; 85610

== ENCOUNTER 2019-08-23 07:02 | Outpatient (RCR) | payer MEDICARE, OTHER, SELFPAY ==
[2019-08-23 10:14] LABS: International Normalized Ratio 2.9; Prothrombin Time (Protime)PT. 29.7 SECONDS (11.7-14.9)
== END 2019-09-14 18:00 | disposition home or self-care (01) ==
LOC: MTLAB 07:02
PROVIDERS: Family Provider Student in an Organized Health Care Education/Training Program; PCP Student in an Organized Health Care Education/Training Program; Referring Provider Internal Medicine Cardiovascular Disease; Visit Provider Internal Medicine Cardiovascular Disease
DX: Z79.01 Long term (current) use of anticoagulants (principal); Z98.890 Other specified postprocedural states; Z95.2 Presence of prosthetic heart valve
CPT/HCPCS: 36415; 85610

== ENCOUNTER 2019-09-19 08:06 | Outpatient (RCR) | payer MEDICARE, OTHER, SELFPAY ==
[2019-09-19 10:06] LABS: International Normalized Ratio 3.1
== END 2019-09-19 18:00 | disposition home or self-care (01) ==
LOC: MTLAB 08:06
PROVIDERS: Family Provider Student in an Organized Health Care Education/Training Program; PCP Student in an Organized Health Care Education/Training Program; Referring Provider Internal Medicine Cardiovascular Disease; Visit Provider Internal Medicine Cardiovascular Disease
DX: Z79.01 Long term (current) use of anticoagulants (principal); Z98.890 Other specified postprocedural states; Z95.2 Presence of prosthetic heart valve
CPT/HCPCS: 36415; 85610

== ENCOUNTER 2019-11-13 09:17 | Outpatient (RCR) | payer MEDICARE, OTHER, SELFPAY ==
[2019-10-17 10:36] LABS: International Normalized Ratio 2.7; Prothrombin Time (Protime)PT. 28.3 SECONDS (11.7-14.9)
[2019-11-13 10:11] LABS: International Normalized Ratio 2.9; Prothrombin Time (Protime)PT. 29.9 SECONDS (11.7-14.9)
== END 2019-11-13 18:00 | disposition home or self-care (01) ==
LOC: MTLAB 09:17
PROVIDERS: Family Provider Student in an Organized Health Care Education/Training Program; PCP Student in an Organized Health Care Education/Training Program; Referring Provider Internal Medicine Cardiovascular Disease; Visit Provider Internal Medicine Cardiovascular Disease
DX: Z79.01 Long term (current) use of anticoagulants (principal); Z98.890 Other specified postprocedural states; Z95.2 Presence of prosthetic heart valve
CPT/HCPCS: 36415; 85610

== ENCOUNTER → 2019-11-23 08:46 | Outpatient (CLI) | payer MEDICARE, OTHER, SELFPAY ==
[2019-11-02 08:49] VITALS: BMI 35.9
--- NOTE | 2019-11-23 08:48 | CDU_ITS ---
Reason For Study: TIA Rt. Velocities/BP Lt. Velocities/BP Prox CCA 106/22.6 cm/sec. Prox CCA 92.9/19.2 cm/sec. Mid CCA 83.8/17.3 cm/sec. Mid CCA 88/18.2 cm/sec. Dist CCA 69.6/15.7 cm/sec. Dist CCA 77.3/17 cm/sec. Prox ICA 83.9/13.9 cm/sec. Prox ICA 41.4/11.1 cm/sec. Mid ICA 93.7/31.1 cm/sec. Mid ICA 44.6/15.8 cm/sec. Dist ICA 79/21.2 cm/sec. Dist ICA 92.2/25.6 cm/sec. Rt. ICA/CCA = 1.1. Lt. ICA/CCA = 1.0. Prox ECA 84.9/10.2 cm/sec. Prox ECA 112/20.6 cm/sec. Rt. Vert. 36.2/10.7 cm/sec. Lt. Vert. 34.3/13.3 cm/sec. Right Extracranial There is intimal thickening but no significant atherosclerotic plaque noted in the right common carotid artery. There is intimal thickening but no significant atherosclerotic plaque noted in the right internal carotid artery. There is no significant atherosclerotic plaque noted in the right external carotid artery. Antegrade flow is noted in the right vertebral artery. Left Extracranial There is intimal thickening but no significant atherosclerotic plaque noted in the left common carotid artery. There is intimal thickening but no significant atherosclerotic plaque noted in the left internal carotid artery. There is intimal thickening but no significant atherosclerotic plaque noted in the left external carotid artery. Antegrade flow is noted in the left vertebral artery. Procedure Carotid Duplex 34694. Exam performed in department. Interpretation Summary Intimal thickening at the proximal bilateral internal carotid arteries with less than 50% stenosis bilaterally. <50% stenosis bilateral external carotids Patent, antegrade vertebrals bilaterally Ordering Physician: Rodrigo Butler Referring Physician: Alex Calix Performed By: Ora Cevallos RVT
--- NOTE | 2019-11-23 08:48 | ECHOCS_ITS ---
Reason For Study: VALVE REPL Procedure This was a 2D Doppler, Color Flow transthoracic echocardiogram. Contrast injection was performed. The study was technically difficult. Exam performed in department. Left Ventricle Normal LV size. Left ventricular systolic function is normal. The estimated ejection fraction is 60 %. Stage 1 diastolic dysfunction. No regional wall motion abnormalities noted. Right Ventricle Normal RV size. Normal systolic function. Atria Normal left atrium. Normal right atrium. Mitral Valve Normal mitral valve. Tricuspid Valve Normal tricuspid valve. Mild tricuspid valve insufficiency. Pulmonary artery systolic pressure is 23 mmHg. Aortic Valve Peak aortic valve gradient 17 mmHg. Mean aortic valve gradient 11 mmHg. Mild aortic stenosis. Trivial aortic valve insufficiency. Stable appearing mechanical aortic valve apparatus. Pulmonic Valve Normal pulmonic valve. Mild pulmonic valve insufficiency identified. Great Vessels Mildly dilated aortic root. The pulmonary artery is normal size. Normal inferior vena cava. Pericardium/Pleural No pericardial effusion. Medication 22 gauge I.V. with prn adaptor inserted into right arm. Diluted definity 3.0ml given slow IV push to enhance endocardial definition. MMode/2D Measurements & Calculations LVIDd: 4.2 cm IVSd: 0.85 cm LVOT diam: 2.0 cm LVIDs: 2.9 cm LVPWd: 0.85 cm RVDd: 2.7 cm FS: 30.9 % LVOT area: 3.1 cm2 Ao root diam: 4.1 cm LAV(MOD-bp): 44.5 ml LVAd ap4: 26.9 cm2 LAV(MOD-bp) Indexed: 22.3 ml/m2 EDV(MOD-sp4): 79.0 ml LAV(MOD-sp2): 40.2 ml EDV(sp4-el): 82.8 ml LAV(MOD-sp4): 47.6 ml LVAs ap4: 13.9 cm2 ESV(MOD-sp4): 29.6 ml ESV(sp4-el): 30.1 ml EF(MOD-sp4): 62.5 % EF(sp4-el): 63.6 % SV(MOD-sp4): 49.4 ml SV(sp4-el): 52.7 ml LA A4 area: 16.4 cm2 LA dimension(2D): 3.9 cm RA A4 area: 14.9 cm2 Time Measurements MV dec time: 0.20 sec Doppler Measurements & Calculations MV E max oc: 61.2 cm/sec Lat Peak E' Oc: 10.1 cm/sec Med Peak E' Oc: 6.5 cm/sec MV A max oc: 81.2 cm/sec E/E' lat: 6.0 E/E' med: 9.5 MV E/A: 0.75 MV V2 max: 86.6 cm/sec Ao V2 max: 209.6 cm/sec AI max oc: 382.8 cm/sec MV max P.0 mmHg Ao max P.6 mmHg AI max P.6 mmHg MV V2 mean: 56.7 cm/sec Ao V2 mean: 158.6 cm/sec AI dec slope: 304.6 cm/sec2 MV mean P.4 mmHg Ao mean P.8 mmHg AI P1/2t: 368.1 msec MV V2 VTI: 25.1 cm Ao V2 VTI: 36.4 cm MVA(VTI): 2.0 cm2 MARYURI(I,D): 1.4 cm2 MARYURI(V,D): 1.2 cm2 LV V1 max: 79.7 cm/sec SV(LVOT): 51.0 ml PA V2 max: 90.3 cm/sec LV V1 max P.5 mmHg LV V1 mean P.5 mmHg LV V1 mean: 59.6 cm/sec LV V1 VTI: 16.2 cm PI end-d co: 86.9 cm/sec TR max oc: 222.6 cm/sec MV P1/2t-pr_phl: 82.0 msec TR max P.9 mmHg Interpretation Summary Normal LV size. Left ventricular systolic function is normal. The estimated ejection fraction is 60 %. Stage 1 diastolic dysfunction. Mean aortic valve gradient 11 mmHg. Stable appearing mechanical aortic valve apparatus. Compared to prior study, there is no significant change. Contrast injection was performed. Ordering Physician: Rodrgio Butler Referring Physician: Rodrigo Butler Performed By: Lyla Castano, RDCS, RVT
== END ==
PROVIDERS: PCP Student in an Organized Health Care Education/Training Program; Referring Provider Internal Medicine Cardiovascular Disease; Visit Provider Internal Medicine Cardiovascular Disease
DX: R47.01 Aphasia (principal)
CPT/HCPCS: 93306; 93880; Q9957; A4216; C8929

== ENCOUNTER 2019-12-08 08:52 | Outpatient (RCR) | payer MEDICARE, OTHER, SELFPAY ==
[2019-11-02 08:49] VITALS: BMI 35.9
[2019-12-08 10:41] LABS: International Normalized Ratio 2.9; Prothrombin Time (Protime)PT. 30.3 SECONDS (11.7-14.9)
== END 2019-12-08 18:00 | disposition home or self-care (01) ==
LOC: MTLAB 08:52
PROVIDERS: Family Provider Student in an Organized Health Care Education/Training Program; PCP Student in an Organized Health Care Education/Training Program; Referring Provider Internal Medicine Cardiovascular Disease; Visit Provider Internal Medicine Cardiovascular Disease
DX: Z79.01 Long term (current) use of anticoagulants (principal); Z98.890 Other specified postprocedural states; Z95.2 Presence of prosthetic heart valve
CPT/HCPCS: 36415; 85610

== ENCOUNTER 2020-01-10 08:58 | Outpatient (RCR) | payer MEDICARE, OTHER, SELFPAY ==
[2019-11-02 08:49] VITALS: BMI 35.9
[2020-01-10 10:15] LABS: International Normalized Ratio 1.9; Prothrombin Time (Protime)PT. 21.2 SECONDS (11.7-14.9)
[2020-01-10 10:26] LABS: AST(SGOT) 29 U/L (15-37); Alanine Aminotransfer ALT/SGPT 29 U/L (13-56); Albumin, Serum 3.4 g/dL (3.2-5.0); Alkaline Phosphatase 62 U/L (45-117); Bilirubin, Direct 0.26 mg/dL (0.00-0.30); Cholesterol 198 mg/dL (200); Globulin 3.5 g/dL (2.2-4.2); High Density Lipoprotein 67 mg/dL; Protein, Total 6.9 g/dL (6.4-8.2); Triglycerides 177 mg/dL; Very Low Density Lipoprotein 35 mg/dL (5-40)
== END 2020-01-15 18:00 | disposition home or self-care (01) ==
LOC: MTLAB 08:58
PROVIDERS: Family Provider Student in an Organized Health Care Education/Training Program; PCP Student in an Organized Health Care Education/Training Program; Referring Provider Internal Medicine Cardiovascular Disease; Visit Provider Internal Medicine Cardiovascular Disease
DX: Z95.2 Presence of prosthetic heart valve (principal); Z79.01 Long term (current) use of anticoagulants; Z98.890 Other specified postprocedural states; E78.5 Hyperlipidemia, unspecified
CPT/HCPCS: 36415; 80061; 80076; 85610

== ENCOUNTER 2020-02-06 09:04 | Outpatient (RCR) | payer MEDICARE, OTHER, SELFPAY ==
[2019-11-02 08:49] VITALS: BMI 35.9
[2020-01-17 10:13] LABS: International Normalized Ratio 2.4; Prothrombin Time (Protime)PT. 25.6 SECONDS (11.7-14.9)
[2020-01-26 10:25] LABS: International Normalized Ratio 3.3; Prothrombin Time (Protime)PT. 33.1 SECONDS (11.7-14.9)
[2020-02-06 09:59] LABS: International Normalized Ratio 3.2; Prothrombin Time (Protime)PT. 32.6 SECONDS (11.7-14.9)
== END 2020-02-06 18:00 | disposition home or self-care (01) ==
LOC: MTLAB 09:04
PROVIDERS: Family Provider Student in an Organized Health Care Education/Training Program; PCP Student in an Organized Health Care Education/Training Program; Referring Provider Internal Medicine Cardiovascular Disease; Visit Provider Internal Medicine Cardiovascular Disease
DX: Z79.01 Long term (current) use of anticoagulants (principal); Z95.2 Presence of prosthetic heart valve; Z98.890 Other specified postprocedural states
CPT/HCPCS: 36415; 85610

== ENCOUNTER 2020-03-01 09:23 | Outpatient (RCR) | payer MEDICARE, OTHER, SELFPAY ==
[2019-11-02 08:49] VITALS: BMI 35.9
[2020-03-01 12:29] LABS: International Normalized Ratio 2.6; Prothrombin Time (Protime)PT. 27.1 SECONDS (11.7-14.9)
== END 2020-03-01 18:00 | disposition home or self-care (01) ==
LOC: MTLAB 09:23
PROVIDERS: Family Provider Student in an Organized Health Care Education/Training Program; PCP Student in an Organized Health Care Education/Training Program; Referring Provider Internal Medicine Cardiovascular Disease; Visit Provider Internal Medicine Cardiovascular Disease
DX: Z95.2 Presence of prosthetic heart valve (principal); Z79.01 Long term (current) use of anticoagulants; Z98.890 Other specified postprocedural states
CPT/HCPCS: 36415; 85610

== ENCOUNTER 2020-03-22 09:22 | Outpatient (RCR) | payer MEDICARE, OTHER, SELFPAY ==
[2019-11-02 08:49] VITALS: BMI 35.9
[2020-03-22 10:46] LABS: International Normalized Ratio 2.6; Prothrombin Time (Protime)PT. 27.1 SECONDS (11.7-14.9)
== END 2020-03-22 18:00 | disposition home or self-care (01) ==
LOC: MTLAB 09:22
PROVIDERS: Family Provider Student in an Organized Health Care Education/Training Program; PCP Student in an Organized Health Care Education/Training Program; Referring Provider Internal Medicine Cardiovascular Disease; Visit Provider Internal Medicine Cardiovascular Disease
DX: Z95.2 Presence of prosthetic heart valve (principal); Z79.01 Long term (current) use of anticoagulants; Z98.890 Other specified postprocedural states
CPT/HCPCS: 36415; 85610

== ENCOUNTER 2020-05-15 09:21 | Outpatient (RCR) | payer MEDICARE, OTHER, SELFPAY ==
[2019-11-02 08:49] VITALS: BMI 35.9
[2020-04-19 13:25] LABS: International Normalized Ratio 2.5; Prothrombin Time (Protime)PT. 26.7 SECONDS (11.7-14.9)
[2020-05-15 12:43] LABS: International Normalized Ratio 2.5; Prothrombin Time (Protime)PT. 26.2 SECONDS (11.7-14.9)
== END 2020-05-15 18:00 | disposition home or self-care (01) ==
LOC: MTLAB 09:21
PROVIDERS: Family Provider Student in an Organized Health Care Education/Training Program; PCP Student in an Organized Health Care Education/Training Program; Referring Provider Internal Medicine Cardiovascular Disease; Visit Provider Internal Medicine Cardiovascular Disease
DX: Z95.2 Presence of prosthetic heart valve (principal); Z79.01 Long term (current) use of anticoagulants; Z98.890 Other specified postprocedural states
CPT/HCPCS: 36415; 85610

== ENCOUNTER 2020-06-12 08:51 | Outpatient (RCR) | payer MEDICARE, OTHER, SELFPAY ==
[2019-11-02 08:49] VITALS: BMI 35.9
[2020-06-11 15:58] VITALS: BMI 36.8
[2020-06-12 10:19] LABS: International Normalized Ratio 2.5; Prothrombin Time (Protime)PT. 26.7 SECONDS (11.7-14.9)
== END 2020-06-12 18:00 | disposition home or self-care (01) ==
LOC: MTLAB 08:51
PROVIDERS: Family Provider Student in an Organized Health Care Education/Training Program; PCP Student in an Organized Health Care Education/Training Program; Referring Provider Internal Medicine Cardiovascular Disease; Visit Provider Internal Medicine Cardiovascular Disease
DX: Z95.2 Presence of prosthetic heart valve (principal); Z79.01 Long term (current) use of anticoagulants; Z98.890 Other specified postprocedural states
CPT/HCPCS: 36415; 85610

== ENCOUNTER 2020-07-10 09:28 | Outpatient (RCR) | payer MEDICARE, OTHER, SELFPAY ==
[2020-06-11 15:58] VITALS: BMI 36.8
[2020-07-10 12:20] LABS: International Normalized Ratio 2.6; Prothrombin Time (Protime)PT. 27.3 SECONDS (11.7-14.9)
[2020-07-10 13:09] LABS: AST(SGOT) 29 U/L (15-37); Alanine Aminotransfer ALT/SGPT 29 U/L (13-56); Albumin, Serum 3.4 g/dL (3.2-5.0); Alkaline Phosphatase 73 U/L (45-117); Bilirubin, Direct 0.18 mg/dL (0.00-0.30); Cholesterol 179 mg/dL (200); Globulin 3.5 g/dL (2.2-4.2); High Density Lipoprotein 64 mg/dL; Protein, Total 6.9 g/dL (6.4-8.2); Triglycerides 162 mg/dL; Very Low Density Lipoprotein 32 mg/dL (5-40)
== END 2020-07-10 18:00 | disposition home or self-care (01) ==
LOC: MTLAB 09:28
PROVIDERS: Family Provider Student in an Organized Health Care Education/Training Program; PCP Student in an Organized Health Care Education/Training Program; Referring Provider Internal Medicine Cardiovascular Disease; Visit Provider Internal Medicine Cardiovascular Disease
DX: E78.00 Pure hypercholesterolemia, unspecified (principal); Z95.2 Presence of prosthetic heart valve; Z79.01 Long term (current) use of anticoagulants; Z98.890 Other specified postprocedural states
CPT/HCPCS: 36415; 80061; 80076; 85610

== ENCOUNTER 2020-08-07 09:25 | Outpatient (RCR) | payer MEDICARE, OTHER, SELFPAY ==
[2020-06-11 15:58] VITALS: BMI 36.8
[2020-08-07 12:28] LABS: Hematocrit 41.5 % (37-47); Hemoglobin 13.8 g/dL (12.0-15.0); Mean Corp Hgb Conc 33.3 g/dL (32-36); Mean Corpuscular Hgb 28.9 pg (27.0-32.0); Mean Corpuscular Volume 86.8 fL (81-99); Mean Platelet Vol. 10.1 fl (6.2-12.0); Platelet Count 243 K/mm3 (150-450); RBC Distribution Width CV 13.4 % (11.6-14.6); RBC Distribution Width SD 42.5 fl (35.1-43.9); Red Blood Count 4.78 M/mm3 (4.2-5.4); White Blood Count 5.4 K/mm3 (4.4-11.0)
[2020-08-07 12:29] LABS: International Normalized Ratio 2.6; Prothrombin Time (Protime)PT. 27.2 SECONDS (11.7-14.9)
[2020-08-07 12:39] LABS: AST(SGOT) 26 U/L (15-37); Alanine Aminotransfer ALT/SGPT 29 U/L (13-56); Albumin, Serum 3.5 g/dL (3.2-5.0); Alkaline Phosphatase 74 U/L (45-117); Anion Gap 8 (5-15); BUN 23 mg/dL (7-18); BUN/Creat Ratio 25.9 RATIO (10-20); Calcium,Total 8.9 mg/dL (8.5-10.1); Chloride 107 mmol/L (98-107); Creatinine, Serum 0.89 mg/dL (0.55-1.02); EST Glomerular Filtration Rate 66 mL/min (>60); Est Glom Filt Rate - Afr Amer 80 mL/min (>60); Globulin 3.5 g/dL (2.2-4.2); Glucose 98 mg/dL (74-106); Sodium Level 141 mmol/L (136-145)
== END 2020-08-07 18:00 | disposition home or self-care (01) ==
LOC: MTLAB 09:25
PROVIDERS: Family Provider Student in an Organized Health Care Education/Training Program; PCP Student in an Organized Health Care Education/Training Program; Referring Provider Internal Medicine Cardiovascular Disease; Visit Provider Internal Medicine Cardiovascular Disease
DX: Z79.01 Long term (current) use of anticoagulants (principal); E78.00 Pure hypercholesterolemia, unspecified; Z95.2 Presence of prosthetic heart valve; Z98.890 Other specified postprocedural states
CPT/HCPCS: 36415; 80053; 85027; 85610

== ENCOUNTER → 2020-08-15 09:36 | Outpatient (CLI) | payer MEDICARE, OTHER, SELFPAY ==
[2020-06-11 15:58] VITALS: BMI 36.8
== END ==
PROVIDERS: PCP Student in an Organized Health Care Education/Training Program; Referring Provider Internal Medicine Cardiovascular Disease; Visit Provider Internal Medicine Cardiovascular Disease
DX: R00.2 Palpitations (principal)
CPT/HCPCS: 93225; 93226

== ENCOUNTER 2020-09-04 09:33 | Outpatient (RCR) | payer MEDICARE, OTHER, SELFPAY ==
[2020-06-11 15:58] VITALS: BMI 36.8
[2020-09-04 12:29] LABS: International Normalized Ratio 2.8; Prothrombin Time (Protime)PT. 28.5 SECONDS (11.7-14.9)
== END 2020-09-04 18:00 | disposition home or self-care (01) ==
LOC: MTLAB 09:33
PROVIDERS: Family Provider Student in an Organized Health Care Education/Training Program; PCP Student in an Organized Health Care Education/Training Program; Referring Provider Internal Medicine Cardiovascular Disease; Visit Provider Internal Medicine Cardiovascular Disease
DX: Z79.01 Long term (current) use of anticoagulants (principal); Z95.2 Presence of prosthetic heart valve; Z98.890 Other specified postprocedural states
CPT/HCPCS: 36415; 85610

== ENCOUNTER 2020-10-02 09:15 | Outpatient (RCR) | payer MEDICARE, OTHER, SELFPAY ==
[2020-06-11 15:58] VITALS: BMI 36.8
[2020-10-02 12:27] LABS: International Normalized Ratio 2.8; Prothrombin Time (Protime)PT. 28.4 SECONDS (11.7-14.9)
== END 2020-10-02 18:00 | disposition home or self-care (01) ==
LOC: MTLAB 09:15
PROVIDERS: Family Provider Student in an Organized Health Care Education/Training Program; PCP Student in an Organized Health Care Education/Training Program; Referring Provider Internal Medicine Cardiovascular Disease; Visit Provider Internal Medicine Cardiovascular Disease
DX: Z79.01 Long term (current) use of anticoagulants (principal); Z95.2 Presence of prosthetic heart valve; Z98.890 Other specified postprocedural states
CPT/HCPCS: 36415; 85610

== ENCOUNTER 2020-10-30 09:28 | Outpatient (RCR) | payer MEDICARE, OTHER, SELFPAY ==
[2020-06-11 15:58] VITALS: BMI 36.8
[2020-10-30 10:30] LABS: International Normalized Ratio 2.5; Prothrombin Time (Protime)PT. 25.9 SECONDS (11.7-14.9)
== END 2020-10-30 18:00 | disposition home or self-care (01) ==
LOC: MTLAB 09:28
PROVIDERS: Family Provider Student in an Organized Health Care Education/Training Program; PCP Student in an Organized Health Care Education/Training Program; Referring Provider Internal Medicine Cardiovascular Disease; Visit Provider Internal Medicine Cardiovascular Disease
DX: Z79.01 Long term (current) use of anticoagulants (principal); Z95.2 Presence of prosthetic heart valve; Z98.890 Other specified postprocedural states
CPT/HCPCS: 36415; 85610

== ENCOUNTER 2020-11-26 09:43 | Outpatient (RCR) | payer MEDICARE, OTHER, SELFPAY ==
[2020-06-11 15:58] VITALS: BMI 36.8
[2020-11-26 12:16] LABS: International Normalized Ratio 2.9; Prothrombin Time (Protime)PT. 29.9 SECONDS (11.7-14.9)
== END 2020-11-26 18:00 | disposition home or self-care (01) ==
LOC: MTLAB 09:43
PROVIDERS: Family Provider Student in an Organized Health Care Education/Training Program; PCP Student in an Organized Health Care Education/Training Program; Referring Provider Internal Medicine Cardiovascular Disease; Visit Provider Internal Medicine Cardiovascular Disease
DX: Z79.01 Long term (current) use of anticoagulants (principal); Z95.2 Presence of prosthetic heart valve; Z98.890 Other specified postprocedural states
CPT/HCPCS: 36415; 85610

== ENCOUNTER 2020-12-24 09:28 | Outpatient (RCR) | payer MEDICARE, OTHER, SELFPAY ==
[2020-06-11 15:58] VITALS: BMI 36.8
[2020-12-24 11:38] LABS: International Normalized Ratio 3.4; Prothrombin Time (Protime)PT. 33.5 SECONDS (11.7-14.9)
== END 2020-12-24 18:00 | disposition home or self-care (01) ==
LOC: MTLAB 09:28
PROVIDERS: Family Provider Student in an Organized Health Care Education/Training Program; PCP Student in an Organized Health Care Education/Training Program; Referring Provider Internal Medicine Cardiovascular Disease; Visit Provider Internal Medicine Cardiovascular Disease
DX: Z79.01 Long term (current) use of anticoagulants (principal); Z95.2 Presence of prosthetic heart valve; Z98.890 Other specified postprocedural states
CPT/HCPCS: 36415; 85610

== ENCOUNTER 2021-01-21 09:18 | Outpatient (RCR) | payer MEDICARE, OTHER, SELFPAY ==
[2021-01-15 01:38] VITALS: BMI 36.8
[2021-01-21 12:26] LABS: International Normalized Ratio 2.8; Prothrombin Time (Protime)PT. 28.4 SECONDS (11.7-14.9)
[2021-01-21 12:32] LABS: AST(SGOT) 23 U/L (15-37); Alanine Aminotransfer ALT/SGPT 29 U/L (13-56); Albumin, Serum 3.2 g/dL (3.2-5.0); Alkaline Phosphatase 70 U/L (45-117); Bilirubin, Direct 0.21 mg/dL (0.00-0.30); Cholesterol 180 mg/dL (200); Globulin 3.7 g/dL (2.2-4.2); High Density Lipoprotein 58 mg/dL; Protein, Total 6.9 g/dL (6.4-8.2); Triglycerides 196 mg/dL; Very Low Density Lipoprotein 39 mg/dL (5-40)
== END 2021-01-21 18:00 | disposition home or self-care (01) ==
LOC: MTLAB 09:18
PROVIDERS: Family Provider Student in an Organized Health Care Education/Training Program; PCP Student in an Organized Health Care Education/Training Program; Referring Provider Internal Medicine Cardiovascular Disease; Visit Provider Internal Medicine Cardiovascular Disease
DX: Z79.01 Long term (current) use of anticoagulants (principal); Z95.2 Presence of prosthetic heart valve; Z98.890 Other specified postprocedural states; E78.00 Pure hypercholesterolemia, unspecified; E78.5 Hyperlipidemia, unspecified
CPT/HCPCS: 36415; 80061; 80076; 85610

== ENCOUNTER 2021-02-18 09:36 | Outpatient (RCR) | payer MEDICARE, OTHER, SELFPAY ==
[2021-02-14 02:16] VITALS: BMI 36.8
[2021-02-18 12:13] LABS: International Normalized Ratio 3.1; Prothrombin Time (Protime)PT. 31.4 SECONDS (11.7-14.9)
== END 2021-03-16 04:04 | disposition home or self-care (01) ==
LOC: MTLAB 09:36
PROVIDERS: Family Provider Student in an Organized Health Care Education/Training Program; PCP Student in an Organized Health Care Education/Training Program; Referring Provider Internal Medicine Cardiovascular Disease; Visit Provider Internal Medicine Cardiovascular Disease
DX: Z79.01 Long term (current) use of anticoagulants (principal); Z95.2 Presence of prosthetic heart valve; Z98.890 Other specified postprocedural states; E78.00 Pure hypercholesterolemia, unspecified; E78.5 Hyperlipidemia, unspecified
CPT/HCPCS: 36415; 85610

== ENCOUNTER 2021-04-14 08:56 | Outpatient (RCR) | payer MEDICARE, OTHER, SELFPAY ==
[2021-03-16 04:04] VITALS: BMI 36.8
[2021-03-17 12:05] LABS: International Normalized Ratio 2.9; Prothrombin Time (Protime)PT. 29.2 SECONDS (11.7-14.9)
[2021-04-14 10:24] LABS: International Normalized Ratio 2.5; Prothrombin Time (Protime)PT. 25.9 SECONDS (11.7-14.9)
== END 2021-04-15 18:00 | disposition home or self-care (01) ==
LOC: MTLAB 08:56
PROVIDERS: Family Provider Student in an Organized Health Care Education/Training Program; PCP Student in an Organized Health Care Education/Training Program; Referring Provider Internal Medicine Cardiovascular Disease; Visit Provider Internal Medicine Cardiovascular Disease
DX: Z79.01 Long term (current) use of anticoagulants (principal); Z95.2 Presence of prosthetic heart valve; Z98.890 Other specified postprocedural states
CPT/HCPCS: 36415; 85610

== ENCOUNTER 2021-05-12 09:01 | Outpatient (RCR) | payer MEDICARE, OTHER, SELFPAY ==
[2021-04-16 03:14] VITALS: BMI 36.8
[2021-05-12 11:24] LABS: International Normalized Ratio 3.4; Prothrombin Time (Protime)PT. 33.5 SECONDS (11.7-14.9)
== END 2021-05-18 18:00 | disposition home or self-care (01) ==
LOC: MTLAB 09:01
PROVIDERS: Family Provider Student in an Organized Health Care Education/Training Program; PCP Student in an Organized Health Care Education/Training Program; Referring Provider Internal Medicine Cardiovascular Disease; Visit Provider Internal Medicine Cardiovascular Disease
DX: Z79.01 Long term (current) use of anticoagulants (principal); Z95.2 Presence of prosthetic heart valve; Z98.890 Other specified postprocedural states
CPT/HCPCS: 36415; 85610

== ENCOUNTER 2021-06-06 09:12 | Outpatient (RCR) | payer MEDICARE, OTHER, SELFPAY ==
[2021-05-18 21:10] VITALS: BMI 36.8
[2021-06-06 10:19] LABS: International Normalized Ratio 2.6; Prothrombin Time (Protime)PT. 27.3 SECONDS (11.7-14.9)
== END 2021-06-16 18:00 | disposition home or self-care (01) ==
LOC: MTLAB 09:12
PROVIDERS: Family Provider Student in an Organized Health Care Education/Training Program; PCP Student in an Organized Health Care Education/Training Program; Referring Provider Internal Medicine Cardiovascular Disease; Visit Provider Internal Medicine Cardiovascular Disease
DX: Z95.2 Presence of prosthetic heart valve (principal); Z98.890 Other specified postprocedural states; Z79.01 Long term (current) use of anticoagulants
CPT/HCPCS: 36415; 85610

== ENCOUNTER 2021-07-11 09:38 | Outpatient (RCR) | payer MEDICARE, OTHER, SELFPAY ==
[2021-06-17 02:41] VITALS: BMI 36.8
[2021-07-04 12:03] LABS: International Normalized Ratio 2.1; Prothrombin Time (Protime)PT. 22.4 SECONDS (11.7-14.9)
[2021-07-11 12:24] LABS: International Normalized Ratio 2.7; Prothrombin Time (Protime)PT. 27.7 SECONDS (11.7-14.9)
== END 2021-07-11 18:00 | disposition home or self-care (01) ==
LOC: MTLAB 09:38
PROVIDERS: Family Provider Student in an Organized Health Care Education/Training Program; PCP Student in an Organized Health Care Education/Training Program; Referring Provider Internal Medicine Cardiovascular Disease; Visit Provider Internal Medicine Cardiovascular Disease
DX: Z98.890 Other specified postprocedural states (principal); Z95.2 Presence of prosthetic heart valve; Z79.01 Long term (current) use of anticoagulants
CPT/HCPCS: 36415; 85610

== ENCOUNTER 2021-08-08 09:09 | Outpatient (RCR) | payer MEDICARE, OTHER, SELFPAY ==
[2021-07-15 10:52] VITALS: BMI 36.8
[2021-07-25 12:24] LABS: Absolute Lymphocyte Count 1.52 X10^3/uL (0.83-4.51); Absolute Neutrophil Count 3.2 X10^3/uL (2.0-7.7); Basophil# 0.03 X10^3/uL; Basophil% 0.6 % (0-1); Eosinophil# 0.18 X10^3/uL; Eosinophils% 3.4 % (0-5); Hematocrit 41.9 % (37-47); Hemoglobin 14.3 g/dL (12.0-15.0); Lymphocyte # 1.52 X10^3/ul (0.83-4.51); Lymphocyte % 28.8 % (19-41); Mean Corp Hgb Conc 34.1 g/dL (32-36); Mean Corpuscular Hgb 28.9 pg (27.0-32.0); Mean Corpuscular Volume 84.6 fL (81-99); Mean Platelet Vol. 11.4 fl (6.2-12.0); Monocyte# 0.34 X10^3/uL; Monocyte% 6.4 % (0-10); NRBC Flagged by Analyzer 0 % (0-5); Neutrophil % 60.6 % (47-70); POSITIVE COUNT YES; RBC Distribution Width CV 13.9 % (11.6-14.6); RBC Distribution Width SD 42.9 fl (35.1-43.9); Red Blood Count 4.95 M/mm3 (4.2-5.4); White Blood Count 5.3 K/mm3 (4.4-11.0)
[2021-07-25 12:26] LABS: International Normalized Ratio 2.5; Prothrombin Time (Protime)PT. 25.8 SECONDS (11.7-14.9)
[2021-07-25 12:37] LABS: AST(SGOT) 26 U/L (15-37); Alanine Aminotransfer ALT/SGPT 29 U/L (13-56); Albumin, Serum 3.4 g/dL (3.2-5.0); Alkaline Phosphatase 72 U/L (45-117); Cholesterol 200 mg/dL (200); Globulin 3.2 g/dL (2.2-4.2); High Density Lipoprotein 60 mg/dL; Protein, Total 6.6 g/dL (6.4-8.2); Triglycerides 303 mg/dL; Very Low Density Lipoprotein 61 mg/dL (5-40)
[2021-07-25 12:54] LABS: Differential Indicated SCAN CRITERIA MET
[2021-07-25 12:56] LABS: Platelet Estimate ADEQUATE (ADEQ)
[2021-08-08 10:54] LABS: International Normalized Ratio 2.5; Prothrombin Time (Protime)PT. 26.5 SECONDS (11.7-14.9)
== END 2021-08-14 18:00 | disposition home or self-care (01) ==
LOC: MTLAB 09:09
PROVIDERS: Physician Assistant Medical; Family Provider Student in an Organized Health Care Education/Training Program; PCP Student in an Organized Health Care Education/Training Program; Referring Provider Internal Medicine Cardiovascular Disease; Visit Provider Internal Medicine Cardiovascular Disease
DX: Z95.2 Presence of prosthetic heart valve (principal); Z79.01 Long term (current) use of anticoagulants; E78.5 Hyperlipidemia, unspecified
CPT/HCPCS: 36415; 80061; 80076; 85025; 85610

== ENCOUNTER 2021-09-08 09:28 | Outpatient (RCR) | payer MEDICARE, OTHER, SELFPAY ==
[2021-08-15 02:09] VITALS: BMI 36.8
[2021-08-27 12:37] LABS: International Normalized Ratio 2.8; Prothrombin Time (Protime)PT. 29.5 SECONDS (11.7-14.9)
[2021-09-01 15:24] LABS: International Normalized Ratio 2.8; Prothrombin Time (Protime)PT. 29.2 SECONDS (11.7-14.9)
[2021-09-08 12:20] LABS: International Normalized Ratio 3.1; Prothrombin Time (Protime)PT. 31.3 SECONDS (11.7-14.9)
== END 2021-09-08 18:00 | disposition home or self-care (01) ==
LOC: MTLAB 09:28
PROVIDERS: Family Provider Student in an Organized Health Care Education/Training Program; PCP Student in an Organized Health Care Education/Training Program; Referring Provider Internal Medicine Cardiovascular Disease; Visit Provider Internal Medicine Cardiovascular Disease
DX: Z95.2 Presence of prosthetic heart valve (principal); Z79.01 Long term (current) use of anticoagulants
CPT/HCPCS: 36415; 85610

== ENCOUNTER 2021-10-02 09:30 | Outpatient (RCR) | payer MEDICARE, OTHER, SELFPAY ==
[2021-09-14 04:05] VITALS: BMI 36.8
[2021-10-02 10:34] LABS: International Normalized Ratio 2.7; Prothrombin Time (Protime)PT. 28.6 SECONDS (11.7-14.9)
== END 2021-10-02 18:00 | disposition home or self-care (01) ==
LOC: MTLAB 09:30
PROVIDERS: Family Provider Student in an Organized Health Care Education/Training Program; PCP Student in an Organized Health Care Education/Training Program; Referring Provider Internal Medicine Cardiovascular Disease; Visit Provider Internal Medicine Cardiovascular Disease
DX: Z95.2 Presence of prosthetic heart valve (principal); Z79.01 Long term (current) use of anticoagulants; Z98.890 Other specified postprocedural states
CPT/HCPCS: 36415; 85610

== ENCOUNTER 2021-10-30 09:11 | Outpatient (RCR) | payer MEDICARE, OTHER, SELFPAY ==
[2021-10-14 22:09] VITALS: BMI 36.8
[2021-10-30 10:03] LABS: International Normalized Ratio 2.9
== END 2021-11-13 16:00 | disposition home or self-care (01) ==
LOC: MTLAB 09:11
PROVIDERS: Family Provider Student in an Organized Health Care Education/Training Program; PCP Student in an Organized Health Care Education/Training Program; Referring Provider Internal Medicine Cardiovascular Disease; Visit Provider Internal Medicine Cardiovascular Disease
DX: Z95.2 Presence of prosthetic heart valve (principal); Z79.01 Long term (current) use of anticoagulants; Z98.890 Other specified postprocedural states
CPT/HCPCS: 36415; 85610

== ENCOUNTER 2021-11-25 08:35 | Outpatient (RCR) | payer MEDICARE, OTHER, SELFPAY ==
[2021-11-14 10:08] VITALS: BMI 36.8
[2021-11-25 10:44] LABS: International Normalized Ratio 2.7; Prothrombin Time (Protime)PT. 28.1 SECONDS (11.7-14.9)
== END 2021-12-14 03:46 | disposition home or self-care (01) ==
LOC: MTLAB 08:35
PROVIDERS: Family Provider Student in an Organized Health Care Education/Training Program; PCP Student in an Organized Health Care Education/Training Program; Referring Provider Internal Medicine Cardiovascular Disease; Visit Provider Internal Medicine Cardiovascular Disease
DX: Z79.01 Long term (current) use of anticoagulants (principal); Z95.2 Presence of prosthetic heart valve; Z98.890 Other specified postprocedural states
CPT/HCPCS: 36415; 85610

== ENCOUNTER 2021-12-22 09:17 | Outpatient (RCR) | payer MEDICARE, OTHER, SELFPAY ==
[2021-12-14 03:46] VITALS: BMI 36.8
[2021-12-22 12:29] LABS: Prothrombin Time (Protime)PT. 30.6 SECONDS (11.7-14.9)
== END 2021-12-22 18:00 | disposition home or self-care (01) ==
LOC: MTLAB 09:17
PROVIDERS: Family Provider Student in an Organized Health Care Education/Training Program; PCP Student in an Organized Health Care Education/Training Program; Referring Provider Internal Medicine Cardiovascular Disease; Visit Provider Internal Medicine Cardiovascular Disease
DX: Z79.01 Long term (current) use of anticoagulants (principal); Z95.2 Presence of prosthetic heart valve; Z98.890 Other specified postprocedural states
CPT/HCPCS: 36415; 85610

== ENCOUNTER → 2022-02-09 | Outpatient (CLI) | payer MEDICARE, OTHER, SELFPAY ==
[2022-02-09 16:06] LABS: Mucous, Urine 0 SEEN /hpf (<or=2+)
[2022-02-09 16:19] LABS: Color, Urine Yellow (Yellow); Glucose, Dipstick Normal (Normal); Ketone-Dipstick Negative (Negative); Leukocyte Esterase-Dipstick 500 /ul (Negative); Nitrite-Dipstick Negative (Negative); Occult Blood-Urine 150 /ul (Negative); Protein-Dipstick 15 mg/dl (Negative); Specific Gravity, Urine 1.005 (1.002-1.030); Urine Bilirubin Dipstick Negative (Negative); Urine Clarity Sl. Cloudy (Clear); Urine Urobilinogen Normal (Normal)
[2022-02-09 16:44] LABS: White Blood Cells >100 SEEN /hpf (0-5)
[2022-02-09 16:45] LABS: Red Blood Cells-Urine 50-100 SEEN /hpf (0-5); Squamous Epithelial Cells - UA 10-25 SEEN /hpf (5-10)
[2022-02-09 16:46] LABS: Bacteria 2+ /hpf (None Seen)
== END | disposition home or self-care (01) ==
LOC: LAB 15:28
PROVIDERS: PCP Student in an Organized Health Care Education/Training Program; Visit Provider Physician Assistant Surgical
DX: R35.0 Frequency of micturition (principal); R32 Unspecified urinary incontinence
CPT/HCPCS: 81001; 87077; 87086; 87088; 87186

== ENCOUNTER 2022-02-13 09:04 | Outpatient (RCR) | payer MEDICARE, OTHER, SELFPAY ==
[2022-01-15 01:15] VITALS: BMI 36.8
[2022-01-16 12:29] LABS: International Normalized Ratio 2.8; Prothrombin Time (Protime)PT. 29.2 SECONDS (11.7-14.9)
[2022-01-16 12:36] LABS: AST(SGOT) 26 U/L (15-37); Alanine Aminotransfer ALT/SGPT 28 U/L (13-56); Albumin, Serum 3.2 g/dL (3.2-5.0); Alkaline Phosphatase 65 U/L (45-117); Bilirubin, Direct 0.17 mg/dL (0.00-0.30); Cholesterol 186 mg/dL (200); Globulin 3.4 g/dL (2.2-4.2); High Density Lipoprotein 60 mg/dL; Protein, Total 6.6 g/dL (6.4-8.2); Triglycerides 176 mg/dL; Very Low Density Lipoprotein 35 mg/dL (5-40)
[2022-02-13 12:24] LABS: International Normalized Ratio 2.7; Prothrombin Time (Protime)PT. 28.5 SECONDS (11.7-14.9)
== END 2022-02-13 18:00 | disposition home or self-care (01) ==
LOC: MTLAB 09:04
PROVIDERS: Physician Assistant Medical; Family Provider Student in an Organized Health Care Education/Training Program; PCP Student in an Organized Health Care Education/Training Program; Referring Provider Internal Medicine Cardiovascular Disease; Visit Provider Internal Medicine Cardiovascular Disease
DX: Z79.01 Long term (current) use of anticoagulants (principal); Z95.2 Presence of prosthetic heart valve; Z98.890 Other specified postprocedural states; E78.00 Pure hypercholesterolemia, unspecified
CPT/HCPCS: 36415; 80061; 80076; 85610

== ENCOUNTER → 2022-02-27 | Outpatient (CLI) | payer MEDICARE, OTHER, SELFPAY | END | disposition home or self-care (01) | LOC: PSN 11:41 | PROVIDERS: PCP Student in an Organized Health Care Education/Training Program; Referring Provider Internal Medicine Cardiovascular Disease; Visit Provider Internal Medicine Cardiovascular Disease | DX: R00.0 Tachycardia, unspecified (principal) | CPT/HCPCS: 93225; 93226 ==

== ENCOUNTER 2022-03-13 08:53 | Outpatient (RCR) | payer MEDICARE, OTHER, SELFPAY ==
[2022-02-14 04:14] VITALS: BMI 36.8
[2022-03-13 10:03] LABS: International Normalized Ratio 2.3; Prothrombin Time (Protime)PT. 25.1 SECONDS (11.7-14.9)
== END 2022-03-13 18:00 | disposition home or self-care (01) ==
LOC: MTLAB 08:53
PROVIDERS: Family Provider Student in an Organized Health Care Education/Training Program; PCP Student in an Organized Health Care Education/Training Program; Referring Provider Internal Medicine Cardiovascular Disease; Visit Provider Internal Medicine Cardiovascular Disease
DX: Z79.01 Long term (current) use of anticoagulants (principal); Z95.2 Presence of prosthetic heart valve; Z98.890 Other specified postprocedural states
CPT/HCPCS: 36415; 85610

== ENCOUNTER 2022-03-27 10:04 | Outpatient (RCR) | payer MEDICARE, OTHER, SELFPAY ==
[2022-03-17 13:13] VITALS: BMI 36.8
[2022-03-19 12:40] LABS: International Normalized Ratio 2.2; Prothrombin Time (Protime)PT. 24.4 SECONDS (11.7-14.9)
[2022-03-27 12:07] LABS: International Normalized Ratio 2.5; Prothrombin Time (Protime)PT. 26.4 SECONDS (11.7-14.9)
== END 2022-04-15 18:00 | disposition home or self-care (01) ==
LOC: MTLAB 10:04
PROVIDERS: Family Provider Student in an Organized Health Care Education/Training Program; PCP Student in an Organized Health Care Education/Training Program; Referring Provider Internal Medicine Cardiovascular Disease; Visit Provider Internal Medicine Cardiovascular Disease
DX: Z79.01 Long term (current) use of anticoagulants (principal); Z95.2 Presence of prosthetic heart valve; Z98.890 Other specified postprocedural states
CPT/HCPCS: 36415; 85610

== ENCOUNTER 2022-05-15 09:12 | Outpatient (RCR) | payer MEDICARE, OTHER, SELFPAY ==
[2022-04-16 02:41] VITALS: BMI 36.8
[2022-04-17 10:28] LABS: International Normalized Ratio 3.4; Prothrombin Time (Protime)PT. 33.7 SECONDS (11.7-14.9)
[2022-05-15 10:49] LABS: International Normalized Ratio 3.3
== END 2022-05-15 18:00 | disposition home or self-care (01) ==
LOC: MTLAB 09:12
PROVIDERS: Family Provider Student in an Organized Health Care Education/Training Program; PCP Student in an Organized Health Care Education/Training Program; Referring Provider Internal Medicine Cardiovascular Disease; Visit Provider Internal Medicine Cardiovascular Disease
DX: Z79.01 Long term (current) use of anticoagulants (principal); Z95.2 Presence of prosthetic heart valve
CPT/HCPCS: 36415; 85610

== ENCOUNTER 2022-06-12 09:13 | Outpatient (RCR) | payer MEDICARE, OTHER, SELFPAY ==
[2022-05-17 06:42] VITALS: BMI 36.8
[2022-06-12 10:15] LABS: International Normalized Ratio 2.8; Prothrombin Time (Protime)PT. 28.9 SECONDS (11.7-14.9)
== END 2022-06-12 11:13 | disposition home or self-care (01) ==
LOC: MTLAB 09:13
PROVIDERS: Nurse Practitioner Family; Family Provider Student in an Organized Health Care Education/Training Program; PCP Student in an Organized Health Care Education/Training Program; Referring Provider Internal Medicine Cardiovascular Disease; Visit Provider Internal Medicine Cardiovascular Disease
DX: Z79.01 Long term (current) use of anticoagulants (principal); Z95.2 Presence of prosthetic heart valve; Z98.890 Other specified postprocedural states
CPT/HCPCS: 36415; 85610

== ENCOUNTER 2022-07-09 09:58 | Outpatient (RCR) | payer MEDICARE, OTHER, SELFPAY ==
[2022-06-17 07:28] VITALS: BMI 36.8
[2022-07-09 12:17] LABS: International Normalized Ratio 2.3
== END 2022-07-09 18:00 | disposition home or self-care (01) ==
LOC: MTLAB 09:58
PROVIDERS: Family Provider Student in an Organized Health Care Education/Training Program; PCP Student in an Organized Health Care Education/Training Program; Referring Provider Internal Medicine Cardiovascular Disease; Visit Provider Internal Medicine Cardiovascular Disease
DX: Z79.01 Long term (current) use of anticoagulants (principal); Z95.2 Presence of prosthetic heart valve; Z98.890 Other specified postprocedural states
CPT/HCPCS: 36415; 85610

== ENCOUNTER 2022-07-23 09:30 | Outpatient (RCR) | payer MEDICARE, OTHER, SELFPAY ==
[2022-07-14 23:30] VITALS: BMI 36.8
[2022-07-23 12:31] LABS: Hemoglobin 14.2 g/dL (12.0-15.0); Mean Corpuscular Hgb 28.7 pg (27.0-32.0); Platelet Count 285 K/mm3 (150-450); RBC Distribution Width CV 13.8 % (11.6-14.6); Red Blood Count 4.94 M/mm3 (4.2-5.4)
[2022-07-23 12:35] LABS: International Normalized Ratio 2.8; Prothrombin Time (Protime)PT. 29.5 SECONDS (11.7-14.9)
[2022-07-23 12:46] LABS: Vitamin D,25 Hydroxy 21.1 ng/mL
[2022-07-23 12:49] LABS: AST(SGOT) 34 U/L (15-37); Alanine Aminotransfer ALT/SGPT 30 U/L (13-56); Albumin, Serum 3.6 g/dL (3.2-5.0); Alkaline Phosphatase 70 U/L (45-117); Anion Gap 8 (5-15); BUN 16 mg/dL (7-18); BUN/Creat Ratio 18.3 RATIO (10-20); Bilirubin, Direct 0.26 mg/dL (0.00-0.30); Calcium,Total 9.1 mg/dL (8.5-10.1); Chloride 104 mmol/L (98-107); Cholesterol 200 mg/dL (200); Creatinine, Serum 0.87 mg/dL (0.55-1.02); EST Glomerular Filtration Rate 67 mL/min (>60); Est Glom Filt Rate - Afr Amer 81 mL/min (>60); Globulin 3.5 g/dL (2.2-4.2); Glucose 107 mg/dL (74-106); High Density Lipoprotein 64 mg/dL; Magnesium 2.2 mg/dL (1.6-2.6); Phosphorus 3.3 mg/dL (2.5-4.9); Potassium 4.1 mmol/L (3.5-5.1); Protein, Total 7.1 g/dL (6.4-8.2); Sodium Level 139 mmol/L (136-145); Triglycerides 244 mg/dL; Very Low Density Lipoprotein 49 mg/dL (5-40)
== END 2022-08-14 21:07 | disposition home or self-care (01) ==
LOC: MTLAB 09:30
PROVIDERS: Family Provider Student in an Organized Health Care Education/Training Program; PCP Student in an Organized Health Care Education/Training Program; Referring Provider Internal Medicine Cardiovascular Disease; Visit Provider Internal Medicine Cardiovascular Disease
DX: Z79.01 Long term (current) use of anticoagulants (principal); Z95.2 Presence of prosthetic heart valve; Z98.890 Other specified postprocedural states; E78.2 Mixed hyperlipidemia; M81.0 Age-related osteoporosis without current pathological fracture
CPT/HCPCS: 36415; 80048; 80061; 80076; 82306; 83735; 84100; 85027; 85610

== ENCOUNTER → 2022-08-06 | Outpatient (CLI) | payer MEDICARE, OTHER, SELFPAY ==
--- NOTE | 2022-08-06 09:48 | ECHOD_ITS ---
Reason For Study: VALVE REPLACEMENT Procedure This was a 2D Doppler, Color Flow transthoracic echocardiogram. Exam performed in department. Left Ventricle Normal LV size. Left ventricular systolic function is normal. The estimated ejection fraction is 60 %. Stage 1 diastolic dysfunction. No regional wall motion abnormalities noted. Right Ventricle Normal RV size. Normal systolic function. Atria Normal left atrium. Normal right atrium. Mitral Valve There is mild mitral annular calcification. Tricuspid Valve Normal tricuspid valve. Aortic Valve Peak aortic valve gradient 16 mmHg. Mean aortic valve gradient 7.7 mmHg. Stable appearing mechanical aortic valve apparatus. Pulmonic Valve Normal pulmonic valve. Great Vessels Normal aortic root. The pulmonary artery is normal size. Normal inferior vena cava. Pericardium/Pleural No pericardial effusion. MMode/2D Measurements & Calculations LVIDd: 3.5 cm IVSd: 1.1 cm LVOT diam: 2.0 cm LVIDs: 2.9 cm LVPWd: 1.1 cm LVOT area: 3.1 cm2 FS: 16.6 % Ao root diam: 3.9 cm LAV(MOD-bp): 32.0 ml LVAd ap4: 19.7 cm2 LAV(MOD-bp) Indexed: 16.0 ml/m2 LVLd ap4: 6.8 cm LAV(MOD-sp2): 38.3 ml EDV(MOD-sp4): 46.1 ml LAV(MOD-sp4): 30.9 ml EDV(sp4-el): 48.1 ml LVAs ap4: 10.7 cm2 LVLs ap4: 5.3 cm ESV(MOD-sp4): 18.8 ml ESV(sp4-el): 18.4 ml EF(MOD-sp4): 59.3 % EF(sp4-el): 61.7 % SV(MOD-sp4): 27.3 ml SV(sp4-el): 29.6 ml LA A4 area: 13.0 cm2 RA A4 area: 12.3 cm2 Time Measurements MV dec time: 0.26 sec Doppler Measurements & Calculations MV E max oc: 54.1 cm/sec Lat Peak E' Oc: 8.9 cm/sec Med Peak E' Oc: 7.3 cm/sec MV A max oc: 73.9 cm/sec E/E' lat: 6.1 E/E' med: 7.4 MV E/A: 0.73 MV V2 max: 80.7 cm/sec Ao V2 max: 200.2 cm/sec MV max P.6 mmHg MV dec slope: 212.3 cm/sec2 Ao max P.1 mmHg MV V2 mean: 44.2 cm/sec Ao V2 mean: 125.1 cm/sec MV mean P.91 mmHg Ao mean P.7 mmHg MV V2 VTI: 16.3 cm Ao V2 VTI: 38.7 cm AV (velocity ratio): 0.83 MVA(VTI): 6.2 cm2 MARYURI(I,D): 2.6 cm2 MARYURI(V,D): 2.3 cm2 LV V1 max: 147.1 cm/sec SV(LVOT): 100.8 ml PA V2 max: 85.5 cm/sec LV V1 max P.7 mmHg PA V2 mean: 62.6 cm/sec LV V1 mean P.6 mmHg LV V1 mean: 99.2 cm/sec LV V1 VTI: 32.0 cm ECHO/Echo Complete Interpretation Summary Normal LV size. Left ventricular systolic function is normal. The estimated ejection fraction is 60 %. Stable appearing mechanical aortic valve apparatus. Stage 1 diastolic dysfunction. Mean aortic valve gradient 7.7 mmHg. Ordering Physician: Latrice Awan Referring Physician: Latrice Awan Performed By: Pearl Rhodes RCS
== END | disposition home or self-care (01) ==
LOC: CVS 09:45
PROVIDERS: PCP Student in an Organized Health Care Education/Training Program; Referring Provider Physician Assistant Medical; Visit Provider Physician Assistant Medical
DX: Q23.0 Congenital stenosis of aortic valve (principal); Q23.1 Congenital insufficiency of aortic valve
CPT/HCPCS: 93306

== ENCOUNTER 2022-08-20 09:13 | Outpatient (RCR) | payer MEDICARE, OTHER, SELFPAY ==
[2022-08-14 21:07] VITALS: BMI 36.8
[2022-08-20 10:09] LABS: International Normalized Ratio 2.9; Prothrombin Time (Protime)PT. 30.3 SECONDS (11.7-14.9)
== END 2022-09-13 05:32 | disposition home or self-care (01) ==
LOC: MTLAB 09:13
PROVIDERS: Family Provider Student in an Organized Health Care Education/Training Program; PCP Student in an Organized Health Care Education/Training Program; Referring Provider Internal Medicine Cardiovascular Disease; Visit Provider Internal Medicine Cardiovascular Disease
DX: Z79.01 Long term (current) use of anticoagulants (principal); Z95.2 Presence of prosthetic heart valve; Z98.890 Other specified postprocedural states; E78.2 Mixed hyperlipidemia; M81.0 Age-related osteoporosis without current pathological fracture
CPT/HCPCS: 36415; 85610

== ENCOUNTER 2022-09-18 09:13 | Outpatient (RCR) | payer MEDICARE, OTHER, SELFPAY ==
[2022-09-13 05:32] VITALS: BMI 36.8
[2022-09-18 10:28] LABS: International Normalized Ratio 3.1; Prothrombin Time (Protime)PT. 32.3 SECONDS (11.7-14.9)
== END 2022-10-14 16:00 | disposition home or self-care (01) ==
LOC: MTLAB 09:13
PROVIDERS: Family Provider Student in an Organized Health Care Education/Training Program; PCP Student in an Organized Health Care Education/Training Program; Referring Provider Internal Medicine Cardiovascular Disease; Visit Provider Internal Medicine Cardiovascular Disease
DX: Z79.01 Long term (current) use of anticoagulants (principal); Z95.2 Presence of prosthetic heart valve; Z98.890 Other specified postprocedural states
CPT/HCPCS: 36415; 85610

== ENCOUNTER 2022-11-13 09:20 | Outpatient (RCR) | payer MEDICARE, OTHER, SELFPAY ==
[2022-10-16 09:32] VITALS: BMI 36.8
[2022-10-16 11:00] LABS: International Normalized Ratio 2.6; Prothrombin Time (Protime)PT. 28.3 SECONDS (11.7-14.9)
[2022-11-13 10:45] LABS: International Normalized Ratio 2.6; Prothrombin Time (Protime)PT. 27.7 SECONDS (11.7-14.9)
== END 2022-11-13 18:00 | disposition home or self-care (01) ==
LOC: MTLAB 09:20
PROVIDERS: Family Provider Student in an Organized Health Care Education/Training Program; PCP Student in an Organized Health Care Education/Training Program; Referring Provider Internal Medicine Cardiovascular Disease; Visit Provider Internal Medicine Cardiovascular Disease
DX: Z79.01 Long term (current) use of anticoagulants (principal)
CPT/HCPCS: 36415; 85610

== ENCOUNTER 2022-12-11 09:10 | Outpatient (RCR) | payer MEDICARE, OTHER, SELFPAY ==
[2022-11-14 02:58] VITALS: BMI 36.8
[2022-12-11 10:05] LABS: International Normalized Ratio 3.3; Prothrombin Time (Protime)PT. 33.8 SECONDS (11.7-14.9)
== END 2022-12-14 18:00 | disposition home or self-care (01) ==
LOC: MTLAB 09:10
PROVIDERS: Family Provider Student in an Organized Health Care Education/Training Program; PCP Student in an Organized Health Care Education/Training Program; Referring Provider Internal Medicine Cardiovascular Disease; Visit Provider Internal Medicine Cardiovascular Disease
DX: Z79.01 Long term (current) use of anticoagulants (principal); Z95.2 Presence of prosthetic heart valve; Z98.890 Other specified postprocedural states
CPT/HCPCS: 36415; 85610

== ENCOUNTER 2023-01-08 09:30 | Outpatient (RCR) | payer MEDICARE, OTHER, SELFPAY ==
[2022-12-15 02:35] VITALS: BMI 36.8
[2023-01-08 12:05] LABS: International Normalized Ratio 3.4; Prothrombin Time (Protime)PT. 34.8 SECONDS (11.7-14.9)
== END 2023-01-08 18:00 | disposition home or self-care (01) ==
LOC: MTLAB 09:30
PROVIDERS: Family Provider Student in an Organized Health Care Education/Training Program; PCP Student in an Organized Health Care Education/Training Program; Referring Provider Internal Medicine Cardiovascular Disease; Visit Provider Internal Medicine Cardiovascular Disease
DX: Z79.01 Long term (current) use of anticoagulants (principal); Z95.2 Presence of prosthetic heart valve; Z98.890 Other specified postprocedural states
CPT/HCPCS: 36415; 85610

== ENCOUNTER 2023-02-03 09:42 | Outpatient (RCR) | payer MEDICARE, OTHER, SELFPAY ==
[2023-01-15 02:27] VITALS: BMI 36.8
[2023-02-03 12:16] LABS: International Normalized Ratio 3.4; Prothrombin Time (Protime)PT. 34.7 SECONDS (11.7-14.9)
[2023-02-03 12:58] LABS: AST(SGOT) 22 U/L (15-37); Alanine Aminotransfer ALT/SGPT 29 U/L (13-56); Albumin, Serum 3.2 g/dL (3.2-5.0); Alkaline Phosphatase 70 U/L (45-117); Bilirubin, Direct 0.22 mg/dL (0.00-0.30); Cholesterol 206 mg/dL (200); Globulin 3.6 g/dL (2.2-4.2); High Density Lipoprotein 68 mg/dL; Protein, Total 6.8 g/dL (6.4-8.2); Triglycerides 258 mg/dL; Very Low Density Lipoprotein 52 mg/dL (5-40)
== END 2023-02-03 18:00 | disposition home or self-care (01) ==
LOC: MTLAB 09:42
PROVIDERS: Nurse Practitioner Family; Family Provider Student in an Organized Health Care Education/Training Program; PCP Student in an Organized Health Care Education/Training Program; Referring Provider Internal Medicine Cardiovascular Disease; Visit Provider Internal Medicine Cardiovascular Disease
DX: Z79.01 Long term (current) use of anticoagulants (principal); Z95.2 Presence of prosthetic heart valve; Z98.890 Other specified postprocedural states; E78.00 Pure hypercholesterolemia, unspecified
CPT/HCPCS: 36415; 80061; 80076; 85610

== ENCOUNTER 2023-03-03 08:57 | Outpatient (RCR) | payer MEDICARE, OTHER, SELFPAY ==
[2023-02-14 05:14] VITALS: BMI 36.8
[2023-03-03 10:27] LABS: Prothrombin Time (Protime)PT. 31.7 SECONDS (11.7-14.9)
== END 2023-03-03 18:00 | disposition home or self-care (01) ==
LOC: MTLAB 08:57
PROVIDERS: Family Provider Student in an Organized Health Care Education/Training Program; PCP Student in an Organized Health Care Education/Training Program; Referring Provider Internal Medicine Cardiovascular Disease; Visit Provider Internal Medicine Cardiovascular Disease
DX: Z79.01 Long term (current) use of anticoagulants (principal); Z95.2 Presence of prosthetic heart valve; Z98.890 Other specified postprocedural states
CPT/HCPCS: 36415; 85610

== ENCOUNTER → 2023-03-15 | Outpatient (CLI) | payer MEDICARE, OTHER, SELFPAY | END | disposition home or self-care (01) | LOC: PSN 08:44 | PROVIDERS: PCP Student in an Organized Health Care Education/Training Program; Referring Provider Physician Assistant Medical; Visit Provider Physician Assistant Medical | DX: R00.2 Palpitations (principal); Z98.890 Other specified postprocedural states; Z95.2 Presence of prosthetic heart valve | CPT/HCPCS: 93225; 93226 ==

== ENCOUNTER 2023-03-31 09:06 | Outpatient (RCR) | payer MEDICARE, OTHER, SELFPAY ==
[2023-03-16 23:22] VITALS: BMI 36.8
[2023-03-31 11:48] LABS: International Normalized Ratio 3.2
== END 2023-04-15 18:00 | disposition home or self-care (01) ==
LOC: MTLAB 09:06
PROVIDERS: Family Provider Student in an Organized Health Care Education/Training Program; PCP Student in an Organized Health Care Education/Training Program; Referring Provider Internal Medicine Cardiovascular Disease; Visit Provider Internal Medicine Cardiovascular Disease
DX: Z79.01 Long term (current) use of anticoagulants (principal); Z95.2 Presence of prosthetic heart valve; Z98.890 Other specified postprocedural states
CPT/HCPCS: 36415; 85610

== ENCOUNTER 2023-04-27 09:13 | Outpatient (RCR) | payer MEDICARE, OTHER, SELFPAY ==
[2023-04-16 04:14] VITALS: BMI 36.8
[2023-04-27 12:05] LABS: Hemoglobin 14.5 g/dL (12.0-15.0); Mean Corpuscular Hgb 28.4 pg (27.0-32.0); Mean Corpuscular Volume 86.3 fL (81-99); Mean Platelet Vol. 10.2 fl (6.2-12.0); Platelet Count 260 K/mm3 (150-450); RBC Distribution Width CV 13.3 % (11.6-14.6); RBC Distribution Width SD 42.4 fl (35.1-43.9); White Blood Count 5.6 K/mm3 (4.4-11.0)
[2023-04-27 12:22] LABS: International Normalized Ratio 2.9; Prothrombin Time (Protime)PT. 30.3 SECONDS (11.7-14.9)
[2023-04-27 12:38] LABS: AST(SGOT) 23 U/L (15-37); Alanine Aminotransfer ALT/SGPT 25 U/L (13-56); Albumin, Serum 3.5 g/dL (3.2-5.0); Alkaline Phosphatase 71 U/L (45-117); Anion Gap 4 (5-15); BUN 17 mg/dL (7-18); BUN/Creat Ratio 19.1 RATIO (10-20); Calcium,Total 8.6 mg/dL (8.5-10.1); Chloride 108 mmol/L (98-107); Creatinine, Serum 0.89 mg/dL (0.55-1.02); EST Glomerular Filtration Rate 65 mL/min (>60); Est Glom Filt Rate - Afr Amer 79 mL/min (>60); Globulin 3.5 g/dL (2.2-4.2); Glucose 101 mg/dL (74-106); Sodium Level 139 mmol/L (136-145)
[2023-04-27 12:56] LABS: Hemoglobin A1c 5.7 % (3.8-5.6)
== END 2023-05-16 18:00 | disposition home or self-care (01) ==
LOC: MTLAB 09:13
PROVIDERS: Family Provider Student in an Organized Health Care Education/Training Program; PCP Student in an Organized Health Care Education/Training Program; Referring Provider Internal Medicine Cardiovascular Disease; Visit Provider Internal Medicine Cardiovascular Disease
DX: Z79.01 Long term (current) use of anticoagulants (principal); Z95.2 Presence of prosthetic heart valve; Z98.890 Other specified postprocedural states; Z79.899 Other long term (current) drug therapy; Z01.818 Encounter for other preprocedural examination
CPT/HCPCS: 36415; 80053; 83036; 85027; 85610

== ENCOUNTER 2023-06-11 08:12 | Outpatient (RCR) | payer MEDICARE, SELFPAY ==
[2023-05-16 23:46] VITALS: BMI 36.8
[2023-05-20 11:16] LABS: International Normalized Ratio 2.3; Prothrombin Time (Protime)PT. 25.5 SECONDS (11.7-14.9)
[2023-05-27 10:46] LABS: International Normalized Ratio 3.1; Prothrombin Time (Protime)PT. 32.1 SECONDS (11.7-14.9)
[2023-06-11 10:23] LABS: International Normalized Ratio 3.7; Prothrombin Time (Protime)PT. 37.3 SECONDS (11.7-14.9)
== END 2023-06-16 18:00 | disposition home or self-care (01) ==
LOC: MTLAB 08:12
PROVIDERS: Family Provider Student in an Organized Health Care Education/Training Program; PCP Student in an Organized Health Care Education/Training Program; Referring Provider Internal Medicine Cardiovascular Disease; Visit Provider Internal Medicine Cardiovascular Disease
DX: Z79.01 Long term (current) use of anticoagulants (principal); Z95.2 Presence of prosthetic heart valve; Z98.890 Other specified postprocedural states
CPT/HCPCS: 36415; 85610

== ENCOUNTER 2023-07-14 09:52 | Outpatient (RCR) | payer MEDICARE, SELFPAY ==
[2023-06-16 23:57] VITALS: BMI 36.8
[2023-06-25 10:10] LABS: Prothrombin Time (Protime)PT. 31.3 SECONDS (11.7-14.9)
[2023-07-14 12:19] LABS: Prothrombin Time (Protime)PT. 30.7 SECONDS (11.7-14.9)
== END 2023-07-15 18:00 | disposition home or self-care (01) ==
LOC: MTLAB 09:52
PROVIDERS: Family Provider Student in an Organized Health Care Education/Training Program; PCP Student in an Organized Health Care Education/Training Program; Referring Provider Internal Medicine Cardiovascular Disease; Visit Provider Internal Medicine Cardiovascular Disease
DX: Z79.01 Long term (current) use of anticoagulants (principal); Z95.2 Presence of prosthetic heart valve; Z98.890 Other specified postprocedural states
CPT/HCPCS: 36415; 85610

== ENCOUNTER 2023-08-09 12:33 | Outpatient (RCR) | payer MEDICARE, SELFPAY ==
[2023-07-16 02:30] VITALS: BMI 36.8
[2023-07-21 11:20] LABS: International Normalized Ratio 3.6; Prothrombin Time (Protime)PT. 35.8 SECONDS (11.7-14.9)
[2023-07-28 12:33] LABS: International Normalized Ratio 3.8; Prothrombin Time (Protime)PT. 37.3 SECONDS (11.7-14.9)
[2023-08-06 12:02] LABS: International Normalized Ratio 2.3; Prothrombin Time (Protime)PT. 24.9 SECONDS (11.7-14.9)
[2023-08-09 13:14] LABS: International Normalized Ratio 2.4; Prothrombin Time (Protime)PT. 26.4 SECONDS (11.7-14.9)
== END 2023-08-15 02:16 | disposition home or self-care (01) ==
LOC: MTLAB 12:33
PROVIDERS: Family Provider Student in an Organized Health Care Education/Training Program; PCP Student in an Organized Health Care Education/Training Program; Referring Provider Internal Medicine Cardiovascular Disease; Visit Provider Internal Medicine Cardiovascular Disease
DX: Z79.01 Long term (current) use of anticoagulants (principal); Z95.2 Presence of prosthetic heart valve; Z98.890 Other specified postprocedural states
CPT/HCPCS: 36415; 85610

== ENCOUNTER → 2023-08-18 | Outpatient (CLI) | payer MEDICARE, SELFPAY ==
--- NOTE | 2023-08-18 17:17 | CT_ITS ---
STUDY: CT ABDOMEN AND PELVIS WITH AND WITHOUT CONTRAST REASON FOR EXAM: Female, 77 years old. Bladder mass seen on prior examination. RADIATION DOSAGE (If Supplied By Facility): CTDIvol = ( 23.25 ) mGy, DLP = ( 2989.74 ) mGycm TECHNIQUE: Transaxial images were obtained from the dome of the diaphragm to the symphysis pubis without oral contrast. ISOVUE 300-100ml was administered. Sagittal and coronal images were reconstructed. Individualized dose optimization techniques were used for this CT. COMPARISON: Comparison is made with prior study dated March 02, 2017. FINDINGS: The visualized lung bases are unremarkable. Coronary artery calcification. There is decreased attenuation of the liver consistent with steatosis. There is a 7 mm cyst in the posterior inferior aspect of the right lobe of the liver. There are surgical clips in the gallbladder fossa consistent with a prior cholecystectomy. Normal spleen. Normal pancreas. Normal bilateral adrenal glands. Normal right kidney. Normal left kidney. There is a small hiatal hernia. Normal small intestine. There are multiple colonic diverticula consistent with diverticulosis. There is non-visualization of the appendix. There is scattered atherosclerotic calcification of the abdominal aorta, without a demonstrated aneurysm. Normal inferior vena cava. Normal retroperitoneum. Once again, there is a 1.7 cm x 1.3 cm soft tissue filling defect in the base of the bladder on the right side although the bladder is not completely distended. There is also evidence of a 1.1 cm filling defect at the base of the bladder on the left side. There is absence of the uterus consistent with a prior hysterectomy. Normal abdominal wall. There are degenerative changes of the visualized lumbar spine. CT/CT Abd/Pelvis W/WO Contrast IMPRESSION: Persistent filling defect at the base of the bladder as described although the bladder is not completely distended. Fatty infiltration of the liver. Stable 7 mm cyst in the posterior inferior aspect of the right lobe of the liver. Electronically Signed: Royce Alvarez MD at 10:34 EDT ,
[2023-08-18 17:52] LABS: CREATININE FINGERSTICK < 1.0 mg/dL (0.55-1.02)
== END | disposition home or self-care (01) ==
LOC: CT 17:15
PROVIDERS: PCP Student in an Organized Health Care Education/Training Program; Referring Provider Student in an Organized Health Care Education/Training Program; Visit Provider Student in an Organized Health Care Education/Training Program
DX: N32.89 Other specified disorders of bladder (principal)
CPT/HCPCS: 74178; Q9967

== ENCOUNTER → 2023-10-21 | Outpatient (CLI) | payer MEDICARE, SELFPAY ==
--- NOTE | 2023-10-21 12:42 | ECHOD_ITS ---
Reason For Study: Aortic Stenosis Procedure This was a 2D Doppler, Color Flow transthoracic echocardiogram. The study was technically difficult. Exam performed in department. Left Ventricle Normal left ventricle. Left ventricular systolic function is normal. The estimated ejection fraction is 60 %. Stage 1 diastolic dysfunction. No regional wall motion abnormalities noted. Right Ventricle Normal RV size. Normal systolic function. Atria Normal left atrium. Normal right atrium. Mitral Valve There is mild mitral annular calcification. Aortic Valve Peak aortic valve gradient 19 mmHg. Mean aortic valve gradient 9 mmHg. Stable appearing mechanical aortic valve apparatus. Great Vessels Normal aortic root. The pulmonary artery is normal size. Normal inferior vena cava. Pericardium/Pleural No pericardial effusion. MMode/2D Measurements & Calculations LVIDd: 4.1 cm IVSd: 1.3 cm LVOT diam: 1.8 cm LVIDs: 2.8 cm LVPWd: 0.72 cm LVOT area: 2.6 cm2 RVDd: 3.9 cm FS: 31.7 % Ao root diam: 4.1 cm LAV(MOD-sp2): 41.7 ml TAPSE: 1.5 cm LA dimension: 4.0 cm Time Measurements MV dec time: 0.22 sec Doppler Measurements & Calculations MV E max oc: 90.6 cm/sec Lat Peak E' Oc: 9.7 cm/sec Med Peak E' Oc: 7.9 cm/sec MV A max oc: 107.5 cm/sec E/E' lat: 9.4 E/E' med: 11.5 MV E/A: 0.84 MV V2 max: 112.5 cm/sec MV P1/2t max oc: 88.4 cm/sec Ao V2 max: 217.5 cm/sec MV max P.1 mmHg MV P1/2t: 80.4 msec Ao max P.9 mmHg MV V2 mean: 59.9 cm/sec MV dec slope: 322.1 cm/sec2 Ao V2 mean: 141.9 cm/sec MV mean P.7 mmHg Ao mean P.4 mmHg MV V2 VTI: 31.0 cm MVA(P1/2t): 2.7 cm2 Ao V2 VTI: 44.6 cm MVA(VTI): 2.3 cm2 AV (velocity ratio): 0.62 MARYURI(I,D): 1.6 cm2 MARYURI(V,D): 1.3 cm2 LV V1 max: 113.3 cm/sec SV(LVOT): 70.7 ml PA V2 max: 73.3 cm/sec LV V1 max P.1 mmHg PA max PG (full): 0.55 mmHg LV V1 mean P.8 mmHg LV V1 mean: 77.2 cm/sec LV V1 VTI: 27.6 cm ECHO/Echo Complete Interpretation Summary Normal left ventricle. Left ventricular systolic function is normal. The estimated ejection fraction is 60 %. Stage 1 diastolic dysfunction. Stable appearing mechanical aortic valve apparatus. Mean aortic valve gradient 9 mmHg. Ordering Physician: Rodrigo Butler Referring Physician: Rodrigo Butler Performed By: Jose L Velasquez and Student
== END | disposition home or self-care (01) ==
PROVIDERS: PCP Student in an Organized Health Care Education/Training Program; Referring Provider Internal Medicine Cardiovascular Disease; Visit Provider Internal Medicine Cardiovascular Disease
DX: Q23.0 Congenital stenosis of aortic valve (principal); Q23.1 Congenital insufficiency of aortic valve
CPT/HCPCS: 93306

== ENCOUNTER 2024-02-23 09:53 | Outpatient (RCR) | payer MEDICARE, SELFPAY ==
[2023-08-15 02:16] VITALS: BMI 36.8
[2024-02-23 12:37] LABS: International Normalized Ratio 2.9; Prothrombin Time (Protime)PT. 29.8 SECONDS (11.7-14.9)
[2024-02-23 12:51] LABS: AST(SGOT) 28 U/L (15-37); Alanine Aminotransfer ALT/SGPT 24 U/L (13-56); Albumin, Serum 3.2 g/dL (3.2-5.0); Alkaline Phosphatase 55 U/L (45-117); Bilirubin, Direct 0.25 mg/dL (0.00-0.30); Cholesterol 186 mg/dL (200); Globulin 3.2 g/dL (2.2-4.2); High Density Lipoprotein 72 mg/dL; Protein, Total 6.4 g/dL (6.4-8.2); Triglycerides 151 mg/dL; Very Low Density Lipoprotein 30 mg/dL (5-40)
== END 2024-02-23 18:00 | disposition home or self-care (01) ==
LOC: MTLAB 09:53
PROVIDERS: Nurse Practitioner Family; Family Provider Student in an Organized Health Care Education/Training Program; PCP Student in an Organized Health Care Education/Training Program; Referring Provider Internal Medicine Cardiovascular Disease; Visit Provider Internal Medicine Cardiovascular Disease
DX: Z79.01 Long term (current) use of anticoagulants (principal); Z95.2 Presence of prosthetic heart valve; Z98.890 Other specified postprocedural states; E78.00 Pure hypercholesterolemia, unspecified
CPT/HCPCS: 36415; 80061; 80076; 85610

== ENCOUNTER 2024-04-05 09:27 | Outpatient (RCR) | payer MEDICARE, SELFPAY ==
[2024-03-16 21:13] VITALS: BMI 36.8
[2024-03-22 12:12] LABS: International Normalized Ratio 2.4; Prothrombin Time (Protime)PT. 25.7 SECONDS (11.7-14.9)
[2024-04-05 12:21] LABS: International Normalized Ratio 2.4; Prothrombin Time (Protime)PT. 26.1 SECONDS (11.7-14.9)
== END 2024-04-15 18:00 | disposition home or self-care (01) ==
LOC: MTLAB 09:27
PROVIDERS: Family Provider Student in an Organized Health Care Education/Training Program; PCP Student in an Organized Health Care Education/Training Program; Referring Provider Internal Medicine Cardiovascular Disease; Visit Provider Internal Medicine Cardiovascular Disease
DX: Z79.01 Long term (current) use of anticoagulants (principal); Z95.2 Presence of prosthetic heart valve; Z98.890 Other specified postprocedural states
CPT/HCPCS: 36415; 85610

== ENCOUNTER 2024-05-05 09:39 | Outpatient (RCR) | payer MEDICARE, SELFPAY ==
[2024-04-16 03:12] VITALS: BMI 36.8
[2024-04-18 10:05] LABS: International Normalized Ratio 2.7; Prothrombin Time (Protime)PT. 28.5 SECONDS (11.7-14.9)
[2024-05-08 07:27] LABS: INR Fingerstick 3.3
== END 2024-05-05 18:00 | disposition home or self-care (01) ==
LOC: MTLAB 09:39
PROVIDERS: Family Provider Student in an Organized Health Care Education/Training Program; PCP Student in an Organized Health Care Education/Training Program; Referring Provider Internal Medicine Cardiovascular Disease; Visit Provider Internal Medicine Cardiovascular Disease
DX: Z79.01 Long term (current) use of anticoagulants (principal); Z95.2 Presence of prosthetic heart valve; Z98.890 Other specified postprocedural states
CPT/HCPCS: 36415; 36416; 85610

== ENCOUNTER 2024-06-02 09:36 | Outpatient (RCR) | payer MEDICARE, SELFPAY ==
[2024-05-17 05:02] VITALS: BMI 36.8
[2024-06-02 09:46] LABS: INR Fingerstick 3.1; Prothrombin Time Fingerstick 32.3 SEC (11.7-14.9)
== END 2024-06-02 18:00 | disposition home or self-care (01) ==
LOC: MTLAB 09:36
PROVIDERS: Family Provider Student in an Organized Health Care Education/Training Program; PCP Student in an Organized Health Care Education/Training Program; Referring Provider Internal Medicine Cardiovascular Disease; Visit Provider Internal Medicine Cardiovascular Disease
DX: Z79.01 Long term (current) use of anticoagulants (principal); Z95.2 Presence of prosthetic heart valve; Z98.890 Other specified postprocedural states

== ENCOUNTER 2024-07-10 11:20 | Outpatient (RCR) | payer MEDICARE, SELFPAY ==
[2024-06-17 02:44] VITALS: BMI 36.8
[2024-07-03 13:52] LABS: Prothrombin Time Fingerstick 21.6 SEC (11.7-14.9)
[2024-07-10 11:39] LABS: INR Fingerstick 2.5; Prothrombin Time Fingerstick 26.3 SEC (11.7-14.9)
== END 2024-07-14 18:00 | disposition home or self-care (01) ==
LOC: MTLAB 11:20
PROVIDERS: Family Provider Student in an Organized Health Care Education/Training Program; PCP Student in an Organized Health Care Education/Training Program; Referring Provider Internal Medicine Cardiovascular Disease; Visit Provider Internal Medicine Cardiovascular Disease
DX: Z79.01 Long term (current) use of anticoagulants (principal); Z95.2 Presence of prosthetic heart valve; Z98.890 Other specified postprocedural states
CPT/HCPCS: 36416; 85610

== ENCOUNTER 2024-08-04 09:19 | Outpatient (RCR) | payer MEDICARE, SELFPAY ==
[2024-07-15 08:24] VITALS: BMI 36.8
[2024-08-04 13:06] LABS: International Normalized Ratio 2.8; Prothrombin Time (Protime)PT. 29.9 SECONDS (11.7-14.9)
[2024-08-04 13:12] LABS: AST(SGOT) 28 U/L (<=31); Alanine Aminotransfer ALT/SGPT 19 U/L (<=34); Albumin, Serum 3.9 g/dL (3.4-4.8); Alkaline Phosphatase 68 U/L (35-104); Globulin 2.6 g/dL (2.2-4.2); Protein, Total 6.5 g/dL (5.9-8.4); Total Bilirubin 0.77 mg/dL (0.00-1.30)
[2024-08-04 16:11] LABS: Cholesterol 191 mg/dL (<=200); High Density Lipoprotein 63 mg/dL; Low Density Lipoprotein Calc. 92 mg/dL; Triglycerides 177 mg/dL; Very Low Density Lipoprotein 35 mg/dL (5-40); cholesterol:hdl ratio screen 3.02
== END 2024-08-04 18:00 | disposition home or self-care (01) ==
LOC: MTLAB 09:19
PROVIDERS: Nurse Practitioner Family; Family Provider Student in an Organized Health Care Education/Training Program; PCP Student in an Organized Health Care Education/Training Program; Referring Provider Internal Medicine Cardiovascular Disease; Visit Provider Internal Medicine Cardiovascular Disease
DX: Z79.01 Long term (current) use of anticoagulants (principal); Z95.2 Presence of prosthetic heart valve; Z98.890 Other specified postprocedural states
CPT/HCPCS: 36415; 80061; 80076; 85610

== ENCOUNTER 2024-08-31 09:32 | Outpatient (RCR) | payer MEDICARE, SELFPAY ==
[2024-08-14 23:39] VITALS: BMI 36.8
[2024-08-31 09:40] LABS: INR Fingerstick 3.1
== END 2024-09-13 18:00 | disposition home or self-care (01) ==
LOC: MTLAB 09:32
PROVIDERS: Family Provider Student in an Organized Health Care Education/Training Program; PCP Student in an Organized Health Care Education/Training Program; Referring Provider Internal Medicine Cardiovascular Disease; Visit Provider Internal Medicine Cardiovascular Disease
DX: Z79.01 Long term (current) use of anticoagulants (principal); Z95.2 Presence of prosthetic heart valve; Z98.890 Other specified postprocedural states
CPT/HCPCS: 36416; 85610

== ENCOUNTER → 2024-08-31 | Outpatient (CLI) | payer MEDICARE, SELFPAY | END | disposition home or self-care (01) | LOC: MTLAB 09:22 | PROVIDERS: PCP Student in an Organized Health Care Education/Training Program; Referring Provider Internal Medicine Cardiovascular Disease; Visit Provider Internal Medicine Cardiovascular Disease | DX: Z79.01 Long term (current) use of anticoagulants (principal) ==

== ENCOUNTER 2024-09-29 09:19 | Outpatient (RCR) | payer MEDICARE, SELFPAY ==
[2024-09-14 01:01] VITALS: BMI 36.8
[2024-10-03 13:18] LABS: INR Fingerstick 2.7; Prothrombin Time Fingerstick 28.6 SEC (11.7-14.9)
== END 2024-09-29 18:00 | disposition home or self-care (01) ==
LOC: MTLAB 09:19
PROVIDERS: Family Provider Student in an Organized Health Care Education/Training Program; PCP Student in an Organized Health Care Education/Training Program; Referring Provider Internal Medicine Cardiovascular Disease; Visit Provider Internal Medicine Cardiovascular Disease
DX: Z79.01 Long term (current) use of anticoagulants (principal)
CPT/HCPCS: 36416; 85610

== ENCOUNTER 2024-10-26 10:50 | Outpatient (RCR) | payer MEDICARE, SELFPAY ==
[2024-10-15 21:31] VITALS: BMI 36.8
[2024-10-30 12:55] LABS: INR Fingerstick 2.7; Prothrombin Time Fingerstick 28.2 SEC (11.7-14.9)
== END 2024-10-26 18:00 | disposition home or self-care (01) ==
LOC: MTLAB 10:50
PROVIDERS: Family Provider Student in an Organized Health Care Education/Training Program; PCP Student in an Organized Health Care Education/Training Program; Referring Provider Internal Medicine Cardiovascular Disease; Visit Provider Internal Medicine Cardiovascular Disease
DX: Z79.01 Long term (current) use of anticoagulants (principal)
CPT/HCPCS: 36416; 85610

== ENCOUNTER → 2024-11-08 | Outpatient (CLI) | payer MEDICARE, SELFPAY ==
--- NOTE | 2024-11-08 08:31 | ECHOCS_ITS ---
Reason For Study Reason For Study: Valve Replacement Eval Procedure This was a 2D Doppler, Color Flow transthoracic echocardiogram. The study was technically difficult. Contrast injection was performed. Exam performed in department. Left Ventricle Normal LV size. Left ventricular systolic function is normal. The left ventricular ejection fraction is 60 %. No regional wall motion abnormalities noted. Right Ventricle Normal RV size. Normal systolic function. Atria Normal left atrium. Normal right atrium. Mitral Valve There is mild mitral annular calcification. Tricuspid Valve Normal tricuspid valve. Aortic Valve Peak aortic valve gradient 26 mmHg. Mean aortic valve gradient 12 mmHg. Stable appearing mechanical aortic valve apparatus. Pulmonic Valve Normal pulmonic valve. Great Vessels Mildly dilated aortic root. The pulmonary artery is normal size. Inferior vena cava collapse with respiration. Pericardium/Pleural No pericardial effusion. Medication 22 gauge I.V. with prn adaptor inserted into left arm. Diluted definity 1ml given slow IV push to enhance endocardial definition. MMode/2D Measurements & Calculations LVIDd: 4.3 cm IVSd: 0.80 cm LVOT diam: 1.8 cm LVIDs: 3.1 cm LVPWd: 0.80 cm RVDd: 3.6 cm FS: 28.4 % LVOT area: 2.5 cm2 Ao root diam: 4.2 cm LAV(MOD-bp): 39.7 ml LVAd ap4: 26.9 cm2 LAV(MOD-bp) Indexed: 19.9 ml/m2 LVLd ap4: 7.2 cm LAV(MOD-sp2): 48.7 ml EDV(MOD-sp4): 80.1 ml LAV(MOD-sp4): 32.8 ml EDV(sp4-el): 85.3 ml LVAs ap4: 16.0 cm2 LVLs ap4: 5.8 cm ESV(MOD-sp4): 35.5 ml ESV(sp4-el): 37.5 ml EF(MOD-sp4): 55.7 % EF(sp4-el): 56.1 % SV(MOD-sp4): 44.6 ml SV(sp4-el): 47.8 ml LA A4 area: 14.1 cm2 SI(MOD-sp4): 22.3 ml/m2 RA A4 area: 10.3 cm2 TAPSE: 2.1 cm Time Measurements MV dec time: 0.30 sec Doppler Measurements & Calculations MV E max oc: 93.3 cm/sec Lat Peak E' Oc: 9.2 cm/sec Med Peak E' Oc: 4.2 cm/sec MV A max oc: 122.9 cm/sec E/E' lat: 10.1 E/E' med: 22.2 MV E/A: 0.76 MV V2 max: 133.9 cm/sec MV P1/2t max oc: 99.0 cm/sec Ao V2 max: 253.7 cm/sec MV max P.2 mmHg MV P1/2t: 95.9 msec Ao max P.8 mmHg MV V2 mean: 70.9 cm/sec MV dec slope: 302.4 cm/sec2 Ao V2 mean: 159.6 cm/sec MV mean P.3 mmHg MVA(P1/2t): 2.3 cm2 Ao mean P.8 mmHg MV V2 VTI: 35.0 cm Ao V2 VTI: 48.0 cm MVA(VTI): 2.0 cm2 AV (velocity ratio): 0.60 MARYURI(I,D): 1.5 cm2 MARYURI(V,D): 1.3 cm2 LV V1 max: 134.6 cm/sec SV(LVOT): 70.4 ml PA V2 max: 92.2 cm/sec LV V1 max P.3 mmHg LV V1 mean P.7 mmHg LV V1 mean: 88.6 cm/sec LV V1 VTI: 28.5 cm ECHO/Echo Complete W/ Contrast Interpretation Summary Normal LV size. Left ventricular systolic function is normal. The left ventricular ejection fraction is 60 %. Stable appearing mechanical aortic valve apparatus. Mean aortic valve gradient 12 mmHg. Contrast injection was performed. Ordering Physician: Abbie Miles Referring Physician: Dioni Mancia Performed By: Jose L Sabillon RCS
--- NOTE | 2024-11-08 19:50 | STRESSREP ---
Stress Test Report Exercise myocardial perfusion stress test. 78-year-old lady with a history of chest pain Stress protocol: Resting EKG demonstrates normal sinus rhythm with a rate of 85 bpm resting blood pressure is 108/70 mmHg. The patient exercised according to the regular [facility] protocol for a total duration of 4 minutes attaining a maximum heart rate of 141 bpm which was 99 of maximum predicted heart rate; the maximum workload was 7 metabolic equivalents. At rest there were no ST or T wave changes noted to suggest ischemia and at peak exercise upsloping ST changes only were noted which did not meet the criteria for ischemia. No clinical angina was noted the test was terminated due to the target heart rate being achieved/fatigue. The peak blood pressure was 152/70 mmHg. Rate-pressure product was 17,500. Myocardial perfusion protocol. 14.5 mCi of technetium 99m sestamibi was injected at rest. The patient exercised according to regular [facility] protocol for total duration of 4-minute and at peak exercise 43.9 mCi of technetium 99m sestamibi was injected stress images were obtained stress and rest images were reconstructed in comparing the short axis vertical long and horizontal long axis. Gated images were also obtained. Perfusion SPECT analysis: Review of the stress images demonstrate normal uptake of tracer noted in all areas of the myocardium. The resting images similarly demonstrate normal uptake of tracer noted in all areas of the myocardium. No areas of reversibility are noted to suggest ischemia no previous infarct was noted. Gated SPECT analysis: The gated ejection fraction is 76% Conclusion: Normal exercise myocardial perfusion stress test at a moderate workload Preserved ejection fraction.
== END | disposition home or self-care (01) ==
LOC: CVS 06:37
PROVIDERS: PCP Student in an Organized Health Care Education/Training Program; Referring Provider Student in an Organized Health Care Education/Training Program; Visit Provider Student in an Organized Health Care Education/Training Program
DX: R07.89 Other chest pain (principal); I20.89 Other forms of angina pectoris; Z95.2 Presence of prosthetic heart valve
CPT/HCPCS: 78452; 93017; 93306; A9500; Q9957; A4216; C8929

== ENCOUNTER 2024-11-23 10:01 | Outpatient (RCR) | payer MEDICARE, SELFPAY ==
[2024-11-23 10:10] LABS: INR Fingerstick 2.8
== END 2024-12-14 18:00 | disposition home or self-care (01) ==
LOC: MTLAB 10:01
PROVIDERS: Family Provider Student in an Organized Health Care Education/Training Program; PCP Student in an Organized Health Care Education/Training Program; Referring Provider Internal Medicine Cardiovascular Disease; Visit Provider Internal Medicine Cardiovascular Disease
DX: Z79.01 Long term (current) use of anticoagulants (principal)
CPT/HCPCS: 36416; 85610

== ENCOUNTER 2024-12-21 10:16 | Outpatient (RCR) | payer MEDICARE, SELFPAY ==
[2024-12-21 10:29] LABS: INR Fingerstick 2.7
== END 2024-12-21 18:00 | disposition home or self-care (01) ==
LOC: MTLAB 10:16
PROVIDERS: Family Provider Student in an Organized Health Care Education/Training Program; PCP Student in an Organized Health Care Education/Training Program; Referring Provider Internal Medicine Cardiovascular Disease; Visit Provider Internal Medicine Cardiovascular Disease
DX: Z79.01 Long term (current) use of anticoagulants (principal)
CPT/HCPCS: 36416; 85610

== ENCOUNTER 2025-02-13 10:49 | Outpatient (RCR) | payer MEDICARE, SELFPAY ==
[2025-01-17 10:10] LABS: INR Fingerstick 2.9
[2025-02-13 11:06] LABS: INR Fingerstick 2.3
== END 2025-02-13 18:00 | disposition home or self-care (01) ==
LOC: MTLAB 10:49
PROVIDERS: Family Provider Student in an Organized Health Care Education/Training Program; PCP Student in an Organized Health Care Education/Training Program; Referring Provider Internal Medicine Cardiovascular Disease; Visit Provider Internal Medicine Cardiovascular Disease
DX: Z79.01 Long term (current) use of anticoagulants (principal)
CPT/HCPCS: 36416; 85610

== ENCOUNTER 2025-03-12 10:25 | Outpatient (RCR) | payer MEDICARE, SELFPAY ==
[2025-03-12 10:38] LABS: INR Fingerstick 2.6
== END 2025-03-12 18:00 | disposition home or self-care (01) ==
LOC: MTLAB 10:25
PROVIDERS: Family Provider Student in an Organized Health Care Education/Training Program; PCP Student in an Organized Health Care Education/Training Program; Referring Provider Internal Medicine Cardiovascular Disease; Visit Provider Internal Medicine Cardiovascular Disease
DX: Z79.01 Long term (current) use of anticoagulants (principal)
CPT/HCPCS: 36416; 85610

== ENCOUNTER 2025-04-06 11:48 | Outpatient (RCR) | payer MEDICARE, SELFPAY ==
[2025-04-06 12:01] LABS: INR Fingerstick 2.3
== END 2025-04-15 18:00 | disposition home or self-care (01) ==
LOC: MTLAB 11:48
PROVIDERS: Family Provider Student in an Organized Health Care Education/Training Program; PCP Student in an Organized Health Care Education/Training Program; Referring Provider Internal Medicine Cardiovascular Disease; Visit Provider Internal Medicine Cardiovascular Disease
DX: Z95.2 Presence of prosthetic heart valve (principal); Z79.01 Long term (current) use of anticoagulants
CPT/HCPCS: 36416; 85610

== ENCOUNTER 2025-04-26 10:21 | Outpatient (RCR) | payer MEDICARE, SELFPAY ==
[2025-04-26 10:42] LABS: INR Fingerstick 2.8
== END 2025-04-26 18:00 | disposition home or self-care (01) ==
LOC: MTLAB 10:21
PROVIDERS: Family Provider Student in an Organized Health Care Education/Training Program; PCP Student in an Organized Health Care Education/Training Program; Referring Provider Internal Medicine Cardiovascular Disease; Visit Provider Internal Medicine Cardiovascular Disease
DX: Z79.01 Long term (current) use of anticoagulants (principal)
CPT/HCPCS: 36416; 85610